=== PATIENT | female | born 1950 | race Caucasian/White ===

== ENCOUNTER 2023-01-28 11:45 | Outpatient (OUT) | payer MEDICARE, SELFPAY ==
[2023-01-28 12:18] LABS: Basophils Percent Auto 0.5 % (0.2-2.0); Eosinophils Absolute Auto 0.2 10^3/uL (0.0-0.7); Eosinophils Percent Auto 2.9 % (0.9-7.0); Estimated Average Glucose 114 mg/dL; Glycohemoglobin A1C 5.6 % (4.5-6.2); Hematocrit 44.3 % (36.0-48.0); Hemoglobin 14.3 g/dL (12.0-16.0); Immature Granulocytes Abs Auto 0.02 10^3/uL (0.00-0.03); Immature Granulocytes Pct Auto 0.3 % (0.0-0.5); Lymphocytes Absolute Auto 1.8 10^3/uL (1.2-3.8); Lymphocytes Percent Auto 31.9 % (20.5-60.0); Mean Corpuscular HGB Conc 32.3 g/dL (29.9-35.2); Mean Corpuscular Hemoglobin 29.8 pg (26.7-34.0); Mean Corpuscular Volume 92.3 fL (81.0-99.0); Monocytes Absolute Auto 0.5 10^3/uL (0.3-0.8); Monocytes Percent Auto 9.2 % (1.7-12.0); Neutrophils Absolute Auto 3.2 10^3/uL (1.4-6.5); Neutrophils Percent Auto 55.2 % (43.0-75.0); Platelet Count 208 10^3/uL (150-450); Red Cell Distribution Width 13.7 % (11.0-15.0); White Blood Count 5.8 10^3/uL (4.0-11.0)
[2023-01-28 12:41] LABS: Alanine Aminotransferase 76 U/L (14-59); Albumin Globulin Ratio 1.1; Albumin Level 4.1 g/dL (3.4-5.0); Alkaline Phosphatase 89 U/L (46-116); Anion Gap 12.9; Aspartate Amino Transferase 38 U/L (15-37); BUN Creatinine Ratio 21.4; Bilirubin Direct 0.1 mg/dL (0.0-0.2); Bilirubin Total 0.5 mg/dL (0.2-1.0); Carbon Dioxide 29.2 mmol/L (21.0-32.0); Chloride 103 mmol/L (98-107); Chol HDL Ratio 3.6; Cholesterol 210 mg/dL (<=200); Estimated GFR (African America >60 (>=60); Estimated GFR (Non-African Ame >60 (>=60); Free T3 2.58 pg/mL (2.18-3.98); Globulin 3.6 g/dL; Glucose 92 mg/dL (74-106); HDL Cholesterol 59 mg/dL (40-60); Potassium 4.1 mmol/L (3.5-5.1); Sodium 141 mmol/L (136-145); Thyroid Stimulating Hormone 2.484 uIU/mL (0.358-3.740); Total Protein 7.7 g/dL (6.4-8.2); Triglycerides 94 mg/dL (<=150); VLDL CHOLESTEROL 18.8 mg/dL
[2023-01-28 13:00] LABS: Free T4 0.96 ng/dL (0.76-1.46)
== END 2023-01-28 11:46 | disposition home or self-care (01) ==
PROVIDERS: PCP Family Medicine; Visit Provider Family Medicine
DX: Z79.899 Other long term (current) drug therapy (principal); E03.9 Hypothyroidism, unspecified; E78.5 Hyperlipidemia, unspecified
CPT/HCPCS: 36415; 80048; 80061; 80076; 83036; 84439; 84443; 84481; 85025

== ENCOUNTER 2023-11-06 12:20 | Outpatient (OUT) | payer MEDICARE, SELFPAY ==
--- NOTE | 2023-11-06 | MR_ITS ---
The [address] [address] Patient Name: RADHA FARNSWORTH MRN: [facility]:[id number] date: 1950 Sex: F Assigned Patient Location: LAB Current Patient Location: LAB Accession/Order Number: [id number] Exam Date: 11/06/2023 12:50 Report Date: 11/09/2023 11:10 At the request of: NON-STAFF PHYSICIAN Procedure: MR ankle RT wo/w con EXAM: MR ankle RT wo/w con HISTORY: Peroneal rupture right ankle COMPARISON: None. TECHNIQUE: Multiplanar multisequence MRI of the right ankle was performed with and without IV contrast. This included axial T2, axial T1 fat-sat, axial oblique PD fat-sat, sagittal T1 fat-sat, sagittal PD fat-sat, sagittal T1, coronal T1 fat-sat, coronal T2 imaging with postcontrast axial, coronal and sagittal T1 fat-sat imaging. FINDINGS: JOINTS: No talar dome osteochondral lesion is seen. Mild marginal spur at the anterior tibiotalar joint. Mild dorsal spur at the talonavicular joint. Minor marginal spur along the midfoot. As seen, the tarsometatarsal alignment appears preserved on this non-weightbearing study. BONES: No focal bone marrow edema is identified. No T1 fracture line is noted. LIGAMENTS: The ATFL is not well seen. No adjacent soft tissue edema. The calcaneofibular and posterior talofibular ligament appears intact. Mild distortion of the deep deltoid ligament compatible with chronic sprain. The anterior and posterior tibiofibular ligaments are intact. TENDONS: The flexor and extensor tendons appear intact. Mild fluid involving the flexor digitorum longus tendon sheath and extensor digitorum longus tendon at the lateral ankle. There is prominent tendinosis of the peroneus longus tendon particularly in the retromalleolar region. There is attenuation of the tendon fibers at the tip of the lateral malleolus, extending 1.8 cm in length, compatible with high-grade partial tear. Interstitial tear is suggested distally along the anterior margin of the lateral malleolus. Peroneus brevis tendon is intact. Mild tenosynovitis is seen. Achilles tendon is intact. Small insertional enthesophyte is noted. SINUS TARSI: Normal fat signal is seen sinus tarsi. PLANTAR FASCIA: Large plantar calcaneal spur is noted. No fascial tear is identified. TARSAL TUNNEL: No mass lesion in tarsal tunnel is identified. SOFT TISSUES: There is mild soft tissue swelling and edema along the ankle. MR/MR ankle RT wo/w con IMPRESSION: 1. High-grade partial tear of the peroneus longus tendon at the level of the tip of lateral malleolus which appears severely attenuated extending 1.8 cm in length. Associated tenosynovitis. Additional split tear suggested distally in the peroneus longus tendon at the level of the anterior process of the calcaneus. 2. No stress reaction or fracture identified. No talar dome OCD. 3. Pgoi-rd-cwfogwju mid/hindfoot osteoarthritis. 4. Chronic plantar fasciitis. 5. ATFL is not well seen which could be related to chronic high-grade partial or full-thickness tear. Remote sprain of the deep deltoid ligament. Electronically authenticated by: MATHEW CASH Date: 11/09/2023 11:10
[2023-11-06 12:47] LABS: Estimated GFR (African America >60 (>=60); Estimated GFR (Non-African Ame >60 (>=60)
== END 2023-11-06 12:21 | disposition home or self-care (01) ==
LOC: LAB 12:20
PROVIDERS: PCP Family Medicine
DX: M76.71 Peroneal tendinitis, right leg (principal); M77.51 Other enthesopathy of right foot and ankle; S86.311A Strain of muscle(s) and tendon(s) of peroneal muscle group at lower leg level, right leg, initial encounter; M72.2 Plantar fascial fibromatosis
CPT/HCPCS: 36415; 73723; 82565; A9575

== ENCOUNTER 2024-03-17 12:46 | Outpatient (OUT) | payer MEDICARE, SELFPAY ==
--- NOTE | 2024-03-17 12:51 | MM_ITS ---
Patient Name: RADHA FARNSWORTH MR#: [id number] : 1950 Exam Date: 03/17/2024 Ordering Doctor: DR Librado Cm . RADIOLOGY REPORT PROCEDURE: MM TOMOSYNTHESIS SCREENING BI COMPARISON: MG MAMM SCREEN 3D ARMANDO CAD, 07/01/2022. MG MAMM SCREEN 3D ARMANDO CAD, 09/26/2020. INDICATIONS: Screening for malignant neoplasm Calculator Name NCI Breast Cancer Risk Assessment Tool 5 Year Breast Cancer Risk 1.40% Lifetime Breast Cancer Risk 3.40% Personal Breast Cancer No Personal Ovarian Cancer No Treatments None Family Cancers Mother with pancreatic cancer at age 68; Brother with prostate cancer at age ~60. LOCATION: The [facility] BREAST COMPOSITION: There are scattered areas of fibroglandular density. FINDINGS: DIAGNOSTIC CATEGORY 1--NEGATIVE. NO CHANGE FROM COMPARISON ASSESSMENT. Scattered benign-appearing calcifications are present. RIGHT BREAST: No significant suspicious finding. LEFT BREAST: No significant suspicious finding. RECOMMENDATIONS: ROUTINE MAMMOGRAM AND CLINICAL EVALUATION IN 12 MONTHS. PLEASE NOTE: A NORMAL MAMMOGRAM DOES NOT EXCLUDE THE POSSIBILITY OF BREAST CANCER. A CLINICALLY SUSPICIOUS PALPABLE LUMP SHOULD BE BIOPSIED. Dictated by: Daryl Daigle MD on 03/17/2024 at 13:36 Approved by: Daryl Daigle MD on 03/17/2024 at 13:37
[2024-03-17 14:00] LABS: Basophils Percent Auto 0.5 % (0.2-2.0); Eosinophils Absolute Auto 0.2 10^3/uL (0.0-0.7); Eosinophils Percent Auto 2.9 % (0.9-7.0); Hematocrit 41.3 % (36.0-48.0); Hemoglobin 13.6 g/dL (12.0-16.0); Immature Granulocytes Abs Auto 0.03 10^3/uL (0.00-0.03); Immature Granulocytes Pct Auto 0.5 % (0.0-0.5); Lymphocytes Absolute Auto 1.8 10^3/uL (1.2-3.8); Lymphocytes Percent Auto 29.2 % (20.5-60.0); Mean Corpuscular HGB Conc 32.9 g/dL (29.9-35.2); Mean Corpuscular Hemoglobin 30.2 pg (26.7-34.0); Mean Corpuscular Volume 91.8 fL (81.0-99.0); Mean Platelet Volume 11.2 fL (9.5-13.5); Monocytes Absolute Auto 0.5 10^3/uL (0.3-0.8); Monocytes Percent Auto 8.8 % (1.7-12.0); Neutrophils Absolute Auto 3.6 10^3/uL (1.4-6.5); Neutrophils Percent Auto 58.1 % (43.0-75.0); Platelet Count 229 10^3/uL (150-450); Red Cell Distribution Width 13.8 % (11.0-15.0); White Blood Count 6.1 10^3/uL (4.0-11.0)
[2024-03-17 14:20] LABS: Free T4 0.98 ng/dL (0.76-1.46)
[2024-03-17 14:21] LABS: Alanine Aminotransferase 44 U/L (14-59); Albumin Globulin Ratio 1.1; Albumin Level 3.7 g/dL (3.4-5.0); Alkaline Phosphatase 94 U/L (46-116); Aspartate Amino Transferase 25 U/L (15-37); BUN Creatinine Ratio 17.6; Bilirubin Direct 0.1 mg/dL (0.0-0.2); Bilirubin Total 0.3 mg/dL (0.2-1.0); Calcium 9.7 mg/dL (8.5-10.1); Carbon Dioxide 30.2 mmol/L (21.0-32.0); Chloride 103 mmol/L (98-107); Chol HDL Ratio 3.9; Cholesterol 227 mg/dL (<=200); Estimated GFR (African America >60 (>=60 mL/min/1.73m^2); Estimated GFR (Non-African Ame 53 (>=60 mL/min/1.73m^2); Globulin 3.4 g/dL; Glucose 114 mg/dL (74-106); HDL Cholesterol 58 mg/dL (40-60); Potassium 4.2 mmol/L (3.5-5.1); Sodium 142 mmol/L (136-145); Thyroid Stimulating Hormone 2.513 uIU/mL (0.358-3.740); Total Protein 7.1 g/dL (6.4-8.2); Triglycerides 211 mg/dL (<=150); VLDL CHOLESTEROL 42.2 mg/dL
[2024-03-17 15:21] LABS: Estimated Average Glucose 105 mg/dL; Glycohemoglobin A1C 5.3 % (4.5-6.2)
== END 2024-03-17 12:47 | disposition home or self-care (01) ==
LOC: MAMMO 12:47
PROVIDERS: PCP Family Medicine; Visit Provider Family Medicine
DX: R00.2 Palpitations (principal); Z79.899 Other long term (current) drug therapy; E78.5 Hyperlipidemia, unspecified; E03.9 Hypothyroidism, unspecified; Z12.31 Encounter for screening mammogram for malignant neoplasm of breast; R73.03 Prediabetes; Z80.42 Family history of malignant neoplasm of prostate; Z80.8 Family history of malignant neoplasm of other organs or systems
CPT/HCPCS: 36415; 77063; 77067; 80048; 80061; 80076; 83036; 84439; 84443; 84481; 85025; 93242

== ENCOUNTER 2025-03-25 10:06 | Outpatient (OUT) | payer MEDICARE, SELFPAY ==
--- OUTSIDE RECORDS SUMMARY | 2025-03-25 10:10 | XMS_ITS | Clinical Summary ---
Author Organization [facility] Address [address] [place] [address] Care Team Providers Care Medical Lab Scientist Name Role Phone Librado Cm MD Primary Care Provider [phone] Librado Cm MD Unavailable Allergies Active AllergyReactionsCriticalityNoted AvhbRndftahvHxywfjbf95/02/2023 Medications MedicationSigDispense QuantityRefillsLast FilledStart DateEnd DateStatus aspirin 81 MG EC tablet Take 81 mg by mouth in the morning.Active baclofen (Lioresal) 20 MG tablet Take by mouth 3 (three) times a day.Active Calcium Carbonate (CALCIUM 500 PO) Take by mouth.Active clobetasol propionate (Clobetasol Propionate E) 0.05 % emollient cream Apply topically 2 (two) times a day.Active Magnesium 500 MG capsule Take by mouth.Active levothyroxine (Synthroid, Levoxyl) 75 MCG tablet Indications:Hypothyroidism, adultTAKE 1 TABLET DAILY 90 tablet ctive ALPRAZolam (Xanax) 0.25 MG tablet Indications:Generalized anxiety disorderTake 1 tablet (0.25 mg) by mouth 3 (three) times a day as needed for anxiety for up to 10 days 30 tablet 03/29/2024ctive celecoxib (CeleBREX) 200 MG capsule Indications:ArthritisTake 1 capsule (200 mg) by mouth in the morning and 1 capsule (200 mg) before bedtime. 180 capsule ctive calcium citrate (Calcitrate) 950 (200 Ca) MG tablet Take 950 mg by mouth DailyActive buPROPion XL (Wellbutrin XL) 300 MG 24 hr tablet Indications:Major depressive disorder, recurrent, moderate (HCC)Take 1 tablet (300 mg) by mouth in the morning. 30 tablet 507/14/651030/146Active Active Problems ProblemNoted DateDiagnosed DateMedicare annual wellness visit, subsequent 12/07/2024 Assessment & Plan (12/07/2024 12:20 PM EDT): Reviewed labs. Discussed proper diet and regular aerobic exercise. Need aerobic exercise 5-6 days aweek for 30 minutes at a time. Smaller portions and limit total calories. Cologuard normal September 2023. Tetanus every 10 years. Advised not to smoke. Former ppddzq8412/07/2024 Assessment & Plan (12/07/2024 12:20 PM EDT): Quit in 2015 but over 30 pack year smoking history. Check LDCT chest. Gzewimnjmbw67/16/2024Encounter for long-term current use of wmvjidvrfx92/08/2024 Heart peggtixrbmxm98/08/2024 Assessment & Plan (03/09/2024 10:45 AM EDT): Occasional pause noted but not symptomatic. Check Holter. Arthralgia of right hand09/02/20231380Uviuqujxpp31/02/2024hronic pain of both knees 09/02/2023isc disease, degenerative, /02/2024Generalized anxiety jcayjnpp96/02/2024 Assessment & Plan (09/07/2024 10:53 AM EDT): Symptoms worse and increase wellbutrin. Warned will take 2-3 weeks to notice improvement in symptoms. Use xanax PRN. Assessment & Plan (03/09/2024 10:45 AM EDT): Symptoms controlled with wellbutrin and continue. Use xanax PRN. Assessment & Plan (09/02/2023 11:03 AM EDT): Symptoms controlled with wellbutrin and continue. Use xanax PRN. Tlitzwmblujv49/02/2024Hypothyroidism, adult09/02/2023rimary cjjymxfw32/02/2024 Assessment & Plan (09/07/2024 10:53 AM EDT): Sleeping well and continue xanax PRN. Assessment & Plan (03/09/2024 10:45 AM EDT): Sleeping well and continue xanax PRN. Assessment & Plan (09/02/2023 11:04 AM EDT): Sleeping well and continue xanax PRN. Irritable bowel cwghxsy4809/02/2023Lumbosacral spondylosis with radiculopathy 09/02/2023rimary osteoarthritis of left hip09/02/2023rimary osteoarthritis of left knee09/02/2023Seborrheic dermatitis, atssomvtcgu47/02/2024Major depressive disorder, recurrent, exkvsdhn73/02/2024 Assessment & Plan (09/07/2024 10:53 AM EDT): Symptoms worse and increase wellbutrin. Warned will take 2-3 weeks to notice improvement in symptoms. Assessment & Plan (03/09/2024 10:45 AM EDT): Symptoms controlled with wellbutrin and continue. Assessment & Plan (09/02/2023 11:03 AM EDT): Symptoms controlled with wellbutrin and continue. Right foot pain09/02/2023 Assessment & Plan (03/09/2024 10:46 AM EDT): Podiatry found torn tendon and has since retired. If worsens will refer to new podiatry. Assessment & Plan (09/02/2023 11:04 AM EDT): Recent pain and start PT. Follow up with podiatry and if no improvement may need MRI. Chronic zggiyjpywieaac16/02/2024 Assessment & Plan (09/07/2024 10:51 AM EDT): Symptoms worse and treat with antibiotics and steroids. Use OTC PRN. Assessment & Plan (03/09/2024 10:44 AM EDT): Symptoms controlled with medication and continue. Assessment & Plan (09/02/2023 11:03 AM EDT): Symptoms controlled with medication and continue. Family History Medical HistoryRelationNameCommentsCOPDFatherCoronary artery diseaseFather HypertensionFathercerebrovascular diseaseFatherCancerMotherHypertensionMother Pancreatic cancerMotherRelationNameStatusCommentsFatherDeceasedMotherDeceased Social History Tobacco UseTypesPacks/DayYears UsedDateSmoking Tobacco: [id number] - 2016Smokeless Tobacco: Never Tobacco Cessation:Counseling Given: Not Answered PHQ-2AnswerDate RecordedPatient Health Questionnaire-2 Mbhcp641 CommentsUnknownSex and Gender InformationValueDate RecordedSex Assigned at Not on fileLegal MhbVqzgmi19/28/2023 3:53 PM EDTGender IdentityNot on fileSexual OrientationNot on file Last Filed Vital Signs Vital SignReadingTime TakenCommentsBlood Sqvodyti886/6207 10:34 AM EDT Uzhqj745812/07/2024 10:34 AM KIUBekwwwfzwhl81.2 ??C (97.1 ??F)12/07/2024 10:34 AM EDTRespiratory Zeov774212/07/2024 10:34 AM EDTOxygen Cvxnbycajo68%12/07/2024 10:34 AM EDTInhaled Oxygen Concentration--Bkgpav72.4 kg (206 lb)12/07/2024 10:34 AM QTQFphyec181 cm (5' 8.5 )12/07/2024 10:34 AM EDTBody Mass Index30.8712/07/2024 10:34 AM EDT Plan of Treatment Health MaintenanceDue DateLast DoneCommentsCT Httfvwbnroer1950Colonoscopy 1950FIT1950FOBT1Lung Cancer Screening Shared Decision Rzggfm92 1950 7941Ggtftiodpmmgz1950neumococcal Vaccine: 65+ Years (1 of 1 - PCV)2001Influenza Vaccine (#1)511/07/20216794Wbmzsyqum30/16/2025 03/17/2024, 11/21/2014Medicare Annual Wellness (AWV)6012/07/2024 Colorectal Cancer Kuumwotfj25/10/2027FIT-DNA Goals GoalPatient Goal TypeAssociated ProblemsRecent ProgressPatient-Stated?Author Help patient manage antidepressant medication Care PlanPatient on antidepressant monitoring Moira Mendez MA Baseline PHQ-9 Care PlanBaseline PHQ-9Moira Jensen MA Procedures Procedure NamePriorityDate/TimeAssociated DiagnosisCommentsMM TOMOSYNTHESIS SCREENING BI03/17/2024 1:37 PM EDT LAB COLOGUARD?? COLON CANCER VRMCIRXpihmpe63/10/2024 9:05 AM EDT Colon cancer screening from Last 3 Months or Most Recently Relevant to Health Maintenance Results * MM TOMOSYNTHESIS SCREENING BI (03/17/2024 1:37 PM EDT)Anatomical Region LateralityModalityOtherSpecimen (Source)Anatomical Location / Laterality Collection Method / VolumeCollection TimeReceived Time03/17/2024 1:37 PM EDT Narrative 03/17/2024 1:39 PM EDT The [facility] ?[address] ? [place] [address] ? Mammography Report ? Signed ? Patient: SHEPERD,RADHA J ?MR#: [id number] ?? : 1950 ?Acct:[id number] ?? Age/Sex: 74 / F ?ADM Date: 10/16/24 ?? Loc: MAMMO ? Attending Dr: Librado Cm M.D. ? Ordering Physician: Librado Cm M.D. ?Results: ? Date of Service: 10/16/24 ?Follow Up: ? Procedure(s): MM tomosynthesis screening BI ?? Accession Number(s): [id number] ? cc: Librado Cm M.D. ? Patient Name: ? RADHA JERRY ? MR#: [id number] ? : 1950 ? Exam Date: 03/17/2024 ?? Ordering Doctor: DR Librado Cm . ? RADIOLOGY REPORT ? PROCEDURE: ? MM TOMOSYNTHESIS SCREENING BI ? COMPARISON: ? MG MAMM SCREEN 3D ARMANDO CAD, 07/01/2022. ??MG MAMM SCREEN 3D ARMANDO ?? CAD, 09/26/2020. ? INDICATIONS: ? Screening for malignant neoplasm ? Calculator Name ? NCI Breast Cancer Risk Assessment Tool ?? 5 Year Breast Cancer Risk ? 1.40% ?? Lifetime Breast Cancer Risk ? 3.40% ?? Personal Breast Cancer ?No ?? Personal Ovarian Cancer ? No ?? Treatments ? None ?? Family Cancers ? Mother with pancreatic cancer at age 68; Brother with ?? prostate cancer at age ??60. ? LOCATION: ? The [facility] ? BREAST COMPOSITION: ? There are scattered areas of fibroglandular density. ? FINDINGS: ? DIAGNOSTIC CATEGORY 1--NEGATIVE. NO CHANGE FROM COMPARISON ASSESSMENT. ? Scattered benign-appearing calcifications are present. ? RIGHT BREAST: ??No significant suspicious finding. ? LEFT BREAST: ??No significant suspicious finding. ? RECOMMENDATIONS: ? ROUTINE MAMMOGRAM AND CLINICAL EVALUATION IN 12 MONTHS. ? PLEASE NOTE: ??A NORMAL MAMMOGRAM DOES NOT EXCLUDE THE POSSIBILITY OF BREAST ?? CANCER. ??A CLINICALLY SUSPICIOUS PALPABLE LUMP SHOULD BE BIOPSIED. ? Dictated by: Daryl Daigle MD on 03/17/2024 at 13:36 ? Approved by: Daryl Daigle MD on 03/17/2024 at 13:37 ? Dictated By: ?Daryl Daigle M.D. ? Signed By: ?03/17/24 1339 ? DD/ 1337 ? TD/TT: ? Meat Stocker: Procedure Note Radiology, Radiologist, MD - 03/17/2024 [place] [address] Mammography Report Signed Patient: RADHA JERRY JMR#: [id number] : 1950cct:[id number] Age/Sex: 74 / FADM Date: 03/17/24 Loc: MAMMO Attending Dr: Librado Cm M.D. Ordering Physician: Librado Cm M.D.Results: Date of Service: 03/17/24Follow Up: Procedure(s): MM tomosynthesis screening BI Accession Number(s): [id number] cc: Librado Cm M.D. Patient Name: RADHA JERRY MR#: [id number] : 1950 Exam Date: 03/17/2024 Ordering Doctor: DR Librado Cm . RADIOLOGY REPORT PROCEDURE: MM TOMOSYNTHESIS SCREENING BI COMPARISON: MG MAMM SCREEN 3D ARMANDO CAD, 07/01/2022. MG MAMM SCREEN 3DBIL CAD, 09/26/2020. INDICATIONS: Screening for malignant neoplasm Calculator Name NCI Breast Cancer Risk Assessment Tool 5 Year Breast Cancer Risk 1.40% Lifetime Breast Cancer Risk 3.40% Personal Breast Cancer No Personal Ovarian Cancer No Treatments None Family Cancers Mother with pancreatic cancer at age 68; Brother with prostate cancer at age 60. LOCATION: The [facility] BREAST COMPOSITION: There are scattered areas of fibroglandulardensity. FINDINGS: DIAGNOSTIC CATEGORY 1--NEGATIVE. NO CHANGE FROM COMPARISON ASSESSMENT. Scattered benign-appearing calcifications are present. RIGHT BREAST: No significant suspicious finding. LEFT BREAST: No significant suspicious finding. RECOMMENDATIONS: ROUTINE MAMMOGRAM AND CLINICAL EVALUATION IN 12 MONTHS. PLEASE NOTE: A NORMAL MAMMOGRAM DOES NOT EXCLUDE THE POSSIBILITY OFBREAST CANCER. A CLINICALLY SUSPICIOUS PALPABLE LUMP SHOULD BE BIOPSIED. Dictated by: Daryl Daigle MD on 03/17/2024 at 13:36 Approved by: Daryl Daigle MD on 03/17/2024 at 13:37 Dictated By: Daryl Daigle M.D. Signed By:03/17/24 1339 DD/ 36 TD/TT: Meat Stocker: Authorizing ProviderResult TypeResult StatusMarc Naderer MDCLINISYNC IMAGING Final Result * Cologuard?? colon cancer screening (09/10/2023 9:05 AM EDT)ComponentValueRef RangeTest MethodAnalysis TimePerformed AtPathologist SignatureNONINV COLON CA DNA+OCC BLD SCRN STL-TPCRxgppkhtKyvkcqqp69/18/2024 5:56 AM EDTEXCFX BATTERY (CLIA #:[id number])Comment: NEGATIVE TEST RESULT. A negative Cologuard result indicates a low likelihood that a colorectal cancer (CRC) or advanced adenoma (adenomatous polyps with more advanced pre-malignant features) ??is present. The chance that a person with a negative Cologuard test has a colorectal cancer is less than 1in 1500 (negative predictive value >99.9%) or has an advanced adenoma is less than 5.3% (negative predictive value 94.7%). These data are based on a prospective cross-sectional study of 10,000individuals at average risk for colorectal cancer who were screened with both Cologuard and colonoscopy. (Elaina Love et al, N Engl J Med 2014;370(14):8585-4128) The normal value (reference range) for this assay is negative. COLOGUARD RE-SCREENING RECOMMENDATION: Periodic colorectal cancer screening is an important part ofpreventive healthcare for asymptomatic individuals at average risk for colorectal cancer. ??Following a negative Cologuard result, the [place] Cancer Society and U.S. Multi-Society Task Force screening guidelines recommend a Cologuard re-screening interval of 3 years. References: [place] [employer] Guideline for Colorectal Cancer Screening: https://www.cancer.or g/cancer/ebckf-ozcuny-kpktyq/nrimcwjpt-cjujjpjso-xgodavw/acs-recommendations.htm sp MARROQUIN, Jacqueline SMITH, Kina LARA, Colorectal Cancer Screening: Recommendations for Physicians and Patients from the U.S. Multi-Society Task Force on Colorectal Cancer Screening , Am J Gastroenterology 2017; 112:6226-6771. TEST DESCRIPTION: Composite algorithmic analysis of stool DNA-biomarkers with hemoglobin immunoassay. ?? Quantitative values of individual biomarkers are not reportable and are not associated with individual biomarker result reference ranges. Cologuard is intended for colorectal cancer screening ofadults of either sex, 45 years or older, who are at average-risk for colorectal cancer (CRC). Cologuard has been approved for use by the U.S. FDA. The performance of Cologuard was established in a cross sectional study of average-risk adults aged 50-84. Cologuard performance in patients ages 45 to 49 years was estimated by sub-group analysis of near-age groups. Colonoscopies performed for a positive result may find as the most clinically significant lesion: colorectal cancer [4.0%], advanced adenoma (including sessile serrated polyps greater than or equal to 1cm diameter) [20%] or non- advanced adenoma [31%]; or no colorectal neoplasia [45%]. These estimates are derived from a prospective cross-sectional screening study of 10,000 individuals at average risk for colorectal cancer who were screened with both Cologuard and colonoscopy. (Elaina Dickson. et al, N Engl J Med 2014;370(14):2409-1885.) Cologuard may produce a false negative or false positive result (no colorectal cancer or precancerous polyp present at colonoscopy follow up). A negative Cologuard test result does not guarantee the absence of CRC or advanced adenoma (pre-cancer). The current Cologuard screening interval is every 3 years. ([place] [employer] Society and U.S. Multi-Society Task Force). Cologuard performance data in a 10,000 patient pivotal study using colonoscopy as the reference method can be accessed at the following location: www.The [place] Times/results. Additional description of the Cologuard test process, warnings and precautions can be found at [email or web address] [email or web address]. Specimen (Source)Anatomical Location / LateralityCollection Method / Volume Collection TimeReceived TimeStool specimen (specimen)09/10/2023 9:05 AM EDT 09/11/2023 12:06 PM EDT Narrative Authorizing ProviderResult TypeResult StatusMarc Toi [facility] ORDERABLESFinal ResultPerforming OrganizationAddressCity/State/ZIP CodePhone Number .[facility] (CLIA #:[id number]) [address] [address], [facility] (CLIA #:[id number]) [address] [address] from Last 3 Months or Most Recently Relevant to Health Maintenance Additional Health Concerns Active ProblemsNoted DateDiagnosed DatePatient on antidepressant monitoring plan 5Baseline PHQ-9007/05/2024 Insurance * Guarantor: Radha Jerry TypeRelation to PatientDate of BirthPhone Billing AddressPersonal/RfsmcwFnby1950 [facility] [place] [address] Care Teams Team MemberRelationshipSpecialtyStart DateEnd Date Librado Cm MD PCP - GeneralFamily Medicine09/02/23 Librado Cm MD [address] [place] [address] PCP - Medical [facility]02/01/1612
--- OUTSIDE RECORDS SUMMARY | 2025-03-25 10:10 | XMS_ITS | Clinical Summary ---
Author Organization [facility] Address [address], [address] [place] [address] Care Team Providers Care Automotive Painter Helper Name Role Phone Librado Cm MD Primary Care Provider + Allergies Active AllergyReactionsCriticalityNoted UukrQkqumrzsSpinmghuCquloIxo69/07/2020 Bee IjfepWtdod63/14/8498WallcqofovhoqXtbjvrw64/14/2023 Patient states she cannot wash it off and it starts itching like crazy. Medications MedicationSigDispense QuantityRefillsLast FilledStart DateEnd DateStatus clobetasol (TEMOVATE) 0.05 % cream Apply topically daily as zzlzfn8302/10/2020Active SYNTHROID 75 MCG tablet Take 75 mcg by mouth Daily01/31/2020Active ALPRAZolam (XANAX) 0.5 MG tablet Take 0.5 mg by mouth nightly as needed for Sleep.Active baclofen (LIORESAL) 20 MG tablet Take 20 mg by mouth as neededActive magnesium oxide (MAG-OX) 400 MG tablet Take 400 mg by mouth dailyActive Multiple Vitamins-Minerals (THERAPEUTIC MULTIVITAMIN-MINERALS) tablet Take 1 tablet by mouth dailyActive ibuprofen (ADVIL;MOTRIN) 200 MG tablet Take 200 mg by mouth every 6 hours as needed for PainActive docusate sodium (COLACE) 100 MG capsule Take 1 capsule by mouth 2 times daily as needed for Constipation 60 capsule 04/05/2020Active Additional Information Patient not taking.Reported on 08/13/2022 aspirin EC 81 MG EC tablet Take 1 tablet by mouth 2 times daily 84 tablet 04/05/2020Active Additional Information Patient taking differently:81 mg OralDAILY, Reported on 07/24/2022 celecoxib (CELEBREX) 200 MG capsule Take 200 mg by mouth 2 times daily05/23/2022ctive Active Problems ProblemNoted DateDiagnosed DateDegenerative tear of left medial meniscus 08/13/2022egenerative tear of lateral meniscus, left08/13/2022lica syndrome, left knee08/13/2022Status post total hip replacement, left04/04/2020 Family History Medical HistoryRelationNameCommentsHigh Blood PressureFatherOtherFatherCancer MotherHigh Blood PressureMotherRelationNameStatusCommentsFatherDeceasedMother Social History Tobacco UseTypesPacks/DayYears UsedDateSmoking Tobacco: FormerCigarettes0.510 03/08/2005 - 03/08/2015Smokeless Tobacco: Never Tobacco Cessation:Counseling Given: Not Answered Alcohol UseStandard Drinks/WeekCommentsYes7 (1 standard drink = 0.6 oz pure alcohol)DailyCommentsNoSex and Gender InformationValueDate RecordedSex Assigned at BirthNot on fileLegal CpnTsieey66/10/2013 10:43 AM ESTGender IdentityNot on fileSexual OrientationNot on file Last Filed Vital Signs Vital SignReadingTime TakenCommentsBlood Dzkbvjir650/69008/13/2022 6:00 PM EDT Dbrsk515608/13/2022 6:00 PM YQYZdeotdbopok82.4 ??C (97.5 ??F)08/13/2022 6:00 PM EDTRespiratory Mlcd685808/28/2022 11:03 AM EDTOxygen Ptyfvofrvn68%08/13/2022 6:00 PM EDTInhaled Oxygen Concentration--Amzmzy11.9 kg (218 lb)08/28/2022 11:03 AM TSWGdinff805.7 cm (5' 8 )08/28/2022 11:03 AM EDTBody Mass Index33.15008/28/2022 11:03 AM EDT Plan of Treatment Health MaintenanceDue DateLast DoneCommentsDepression Ygefur2502/24/1963Hepatitis C apaxyg7302/24/1969DTaP/Tdap/Td vaccine (1 - Tdap)1970Breast cancer screen 02/24/19911174Dmuaai79/25/6258Jucuookimfj29/25/1996Colorectal Cancer Screen 02/25/1996FIT/FOBT: Average risk02/25/1996Fecal-DNA (Cologuard): Average risk 02/25/1996Sigmoidoscopy/CT nuzbwbqlvmsx55/25/1996Pneumococcal 50+ years Vaccine (1 of 1 - PCV)2001Shingles vaccine (1 of 2)2001DEXA (modify frequency per FRAX score)2006nnual Wellness Visit (Medicare Advantage) 06/02/2024Flu vaccine (#1)/2COVID-19 Vaccine ( - season)/07/2021, 01/08/2022, 03/03/2021, Additional history exists Respiratory Syncytial Virus (RSV) or age 60 yrs+ (1 - 1-dose 75+ series)2026Diabetes ivqunyPukngkrerwpq09/22/2020Hepatitis A vaccineAged OutNo longer eligible based on patient's age to complete this topicHepatitis B vaccineAged OutNo longer eligible based on patient's age to complete this topic Hib vaccineAged OutNo longer eligible based on patient's age to complete this topicMeningococcal (ACWY) vaccineAged OutNo longer eligible based on patient's age to complete this topicMeningococcal B vaccineAged OutNo longer eligible based on patient's age to complete this topicPolio vaccineAged OutNo longer eligible based on patient's age to complete this topic Medical Devices ImplantedTypeAreaManufacturerDevice IdentifierShelf Expiration DateModel / Serial / LotShell Acet Od56mm Lnr Dmh Dbl Mobility Mpact Implanted:Qty: 1 [facility] HipMEDACTA [facility]-[id number] / / [id number] Acet Sz Dmh Od56mm Id28mm [place] Dbl Mobility Implanted:Qty: 1 on 04/04/2020 [facility]: HipMEDACTA [place]-[id number] / / [id number] Fem Sz 8 Lat Hip Mectagrip Cementless Flat Dbl Tapr Implanted:Qty: 1 on 04/04/2020 [facility] HipMEDACTA [facility]-[id number] / / [id number] Fem M Xko50cz Hip Co Chrom Amistem Implanted:Qty: 1 on [facility]/04/2020 [facility] HipMEDACTA [facility]-[id number] / / [id number] Tot Hip Capped Std Kaushal Stem Implanted:Qty: 1 on 04/04/2020 [facility] HipMEDACTA [facility]-[id number] / / Procedures Procedure NamePriorityDate/TimeAssociated DiagnosisCommentsHEMOGLOBIN W1BWbvbwch 03/23/2020 4:34 PM EDT Abnormal finding of blood chemistry, unspecified Arthritis of left hip from Last 3 Months or Most Recently Relevant to Health Maintenance Results * Hemoglobin A1C (03/23/2020 4:34 PM EDT)ComponentValueRef RangeTest Method Analysis TimePerformed AtPathologist SignatureHemoglobin A1C5.44.0 - 6.0 % 03/23/2020 4:34 PM EDTMERCY LABORATORIESEstimated Avg Eymwgjy902xt/dL 03/23/2020 4:34 PM EDTMERCY LABORATORIESComment: The ADA and AACC recommend providing the estimated average glucose result to permit better patient understanding of their HBA1c result. Specimen (Source)Anatomical Location / LateralityCollection Method / Volume Collection TimeReceived TimeBLOOD SPECIMEN / Hglqttz7203/23/2020 4:34 PM EDT 03/23/2020 4:46 PM EDT Narrative Authorizing ProviderResult TypeResult StatusDrew Pat DOCHEMISTRY ORDERABLESFinal ResultPerforming OrganizationAddressCity/State/ZIP CodePhone Number [facility] [address] [id number], [facility] [phone] from Last 3 Months or Most Recently Relevant to Health Maintenance Insurance Advance Directives TypeDate RecordedPatient RepresentativeExplanationACP-Do Not Resuscitate 08/14/2022 12:57 PMACP-Advance Zpmgosoiu17/3/2020 10:35 AM * Full Code (Latest Code Status on File) Date ActivatedDate SweptqhklmjDsondgfu07/3/2020 9:14 PM04/05/2020 5:57 PM Care Teams Team MemberRelationshipSpecialtyStart DateEnd Date Librado Cm MD [address] [place] [address] PCP - GeneralFamily Xsdfbnep56/7/20
--- OUTSIDE RECORDS SUMMARY | 2025-03-25 10:10 | XMS_ITS | Patient Health Record ---
Author Organization [facility] [place] Address [address] [place] [address] Support Name Relationship Address Phone Nikko Emergency Contact Unknown Nikko Jerry Guarantor Unknown Unavailable Reason For Referral No Information Plan Of Treatment No Information Insurance Providers Payer Name Payer Address Payer Phone Subscriber Number Group Number Insured Name Patient Relationship to Insured Coverage Start Date Coverage End Date SELF PAY ON PATIENT DEMOGRAPHICS Jose Luis Jerry - patient is the oqyiyej2309/29/2007
--- OUTSIDE RECORDS SUMMARY | 2025-03-25 10:10 | XMS_ITS | Clinical Summary ---
Author Organization [facility] Address [id number] [place] [address] Care Team Providers Care Outside Cutter Hand Name Role Phone Unavailable Primary Care Provider Unavailabl e Social History Tobacco UseTypesPacks/DayYears UsedDateSmoking Tobacco: Never AssessedChildcare AnswerDate KglsbcbvMkifncaxmQngbzmf70/12/2019EmploymentAnswerDate Recorded FnffvmhejkCuulgyp90/12/2019CommentsUnknownSex and Gender Information ValueDate RecordedSex Assigned at BirthNot on fileLegal JwqWufaeb34/06/2015 11:58 AM EDTGender IdentityNot on fileSexual OrientationNot on file Plan of Treatment Not on file Medical Devices Not on file
--- OUTSIDE RECORDS SUMMARY | 2025-03-25 10:11 | XMS_ITS | CCD ---
Author Organization [facility] Care Team Providers Care Safemaker Name Role Phone Librado Solorzano Primary Care Provider [phone] LIBRADO SOLORZANO Primary Care Unavailabl e HOAGN, TIERA Referring Unavailable MD Lauro Brito Attending Provider [phone] Lauro Brito Attending Unavailable Lauro Brito Admitting Unavailable Maryererosendo, Librado Primary Care Unavailable RASHAD, LIBRADO LEE Primary Care Unavailabl e Rashad ESTRADA, Librado Lee Primary Care Provider CRYSTAL MCADAMS Attending Unavailab ebony MCADAMS, CRYSTAL ELDER Admitting Unavailab le NADERER, LIBRADO LEE Primary Care Unavailabl e NADERER, LIBRADO LEE Primary Care Unavailabl e CRYSTAL MCADAMS Referring Unavailab le NADERER, LIBRADO LEE Primary Care Unavailabl e CRYSTAL MCADAMS Referring Unavailab le NADERER, DR LIBRDAO Ward Primary Care Unavailable NADERER, DR LIBRADO Ward Consulting Unavailable NADERER, DR LIBRADO Ward Attending Unavailable NADERER, DR LIBRADO Ward Admitting Unavailable NADERER, DR LIBRADO Ward Primary Care Unavailable NADERER, DR LIBRADO Ward Attending Unavailable NADERER, DR LIBRADO Ward Admitting Unavailable ZIEBER, DR DENNISE Robbins Consulting Unavailable NADERER, DR LIBRADO Ward Consulting Unavailable AICHHOLZ, BACTERIOLOGY TEACHER EUSEBIO Admitting Unavailable AICHHOLZ, BACTERIOLOGY TEACHER EUSEBIO Consulting Unavailable AICHHOLZ, BACTERIOLOGY TEACHER EUSEBIO Attending Unavailable NADERERosendo, DR LIBRADO Ward Primary Care Unavailable ZIEBER, DR DENNISE Robbins Consulting Unavailable AICHHOLZ, BACTERIOLOGY TEACHER EUSEBIO Admitting Unavailable AICHHOLZ, BACTERIOLOGY TEACHER EUSEBIO Attending Unavailable NADERER, DR LIBRADO Ward Primary Care Unavailable MISC, DR PAREKH Admitting Unavailable MISC, DR PAREKH Attending Unavailable NADERER, DR LIBRADO Ward Primary Care Unavailable AICHHOLZ, BACTERIOLOGY TEACHER EUSEBIO Admitting Unavailable AICHHOLZ, BACTERIOLOGY TEACHER EUSEBIO Consulting Unavailable NAS MANN Attending Unavailable DR LIBRADO SOLORZANO Primary Care Unavailable DR DENNISE BARLOW Consulting Unavailable Librado Solorzano MD Primary Care Provider Librado Solorzano MD Unavailable LIBRADO SOLORZANO Attending Unavailable ILBRADO SOLORZANO Attending Unavailable LIBRADO SOLORZANO Attending Unavailable Librado Solorzano MD Primary Care Provider Librado Solorzano MD Attending Provider [phone] Allergies Allergy ClassificationReported Allergen(s)Allergy TypeDate of OnsetReaction(s) Facility (18 sources)NaproxenDrug Xfcxxkj21-39-4508BzaqwFpfvt Health- [place], [place] (1 source)bee venomPropensity to adverse reactions to itpa08-42-6604ZbebkTZWWell[facility] ([facility] source)ChlorhexidineDrug Qqzftsu58-77-2108AkjgpqaUZOCJW Medical Center Work Phone: Medications Current Medications MedicationDrug Class(es)DatesSig (Normalized)Sig (Original)acetaminophen 500 mg oral tablet (2 sources)Start: 04-04-2020 End: 74-56-8251smwekdhanuwql (TYLENOL) tablet 1,000 mgacetaminophen 325 mg / oxyCODONE hydrochloride 5 mg oral tablet (2 sources)Opioid AgonistStart: 08-13-2022 End: 07-29-2931xvgXLBDIB-acetaminophen (PERCOCET) 5-325 MG per tablet Indications: Post-op pain Take 1 tablet by mouth every 6 hours as needed for Pain for up to 7 days. Intended supply: 7 days. Take lowest dose possible to manage pain Max Daily Amount: 4 tablets 28 tablet 0 08/13/2022 08/20/2022 Active Start: 04-05-2020 End: 25-98-2995pbek 1 tablet by mouth every four hours as needed for pain, then take 1 tablet by mouth as needed for painoxyCODONE-acetaminophen (PERCOCET) 5- 325 MG per tablet Indications: Status post total hip replacement, left , Post- operative pain Take 1 tablet by mouth every 4 hours as needed for Pain for up to 7 days. Intended supply: 7 days. Take lowest dose possible to manage pain 42 tablet 0 04/05/2020 04/12/2020 ActiveALPRAZolam 0.25 mg oral tablet (20 sources)BenzodiazepineStart: 80-04-7007kqnf 1 tablet by mouth three times daily as neededAlprazolam 0.25 mg tablet Active 0.25 MG PO Three times daily as needed March 09, 2025 12:00am Complies with drug therapyStart: 03-25-2024 End: 82-48-8070iacl 1 tablet by mouth three times daily as needed for anxiety ALPRAZolam (Xanax) 0.25 MG tablet Indications: Generalized anxiety disorder Take 1 tablet (0.25 mg)by mouth 3 (three) times a day as needed for anxiety for up to 10 days 30 tablet 03/29/2024 ActiveStart: 03-09-2024 End: 11-41-2151jzrw 1 tablet by mouth three times daily as needed for anxiety ALPRAZolam (Xanax) 0.5 MG tablet Indications: Generalized anxiety disorder (CMS/HCC) Take 1 tablet (0.5 mg) by mouth 3 (three) times a day as needed for anxiety for up to 10 days 30 tablet ActiveStart: 04-04-2020 End: 04-33-8726xfjw 0.5 mg by mouth once daily as needed for sleep0.5 mg, Oral, NIGHTLY PRN, Sleep, Starting Fri04/04/20 at 2113ascorbic acid 60 mg / beta carotene 5000 unt / copper sulfate 40 mg / dl-alpha tocopheryl acetate 30 unt / sodium selenite 0.04 mg / zinc oxide 40 mg oral tablet (4 sources)Vitamin Ctake 1 tablet by mouth once dailyMultiple Vitamins-Minerals (THERAPEUTIC MULTIVITAMIN-MINERALS) tablet Take 1 tablet by mouth daily 0 Active aspirin 81 mg oral tablet (19 sources)Platelet Aggregation Inhibitor, Nonsteroidal Anti-inflammatory Drug Start: 11-80-1268qwgr 1 tablet by mouth once dailyAspirin 81 mg tablet Active 81 MG PO Daily March 09, 2025 12:00am Complies with drug therapyStart: 04-05-2020 End: 83-71-7363rnas 1 tablet by mouth twice dailyaspirin EC 81 MG EC tablet Take 1 tablet by mouth 2 times daily 84 tablet 0 04/05/2020 Active End: 63-34-1595trbr 1 tablet by mouth once dailyaspirin 81 MG EC tablet Take 81 mg by mouth daily 0 04/05/2020 Discontinued (Stop Taking at Discharge)baclofen 20 mg oral tablet (18 sources)gamma-Aminobutyric Acid-ergic Agonistbaclofen (Lioresal) 20 MG tablet Take by mouth 3 (three) times a day. Activebisacodyl 5 mg delayed release oral tablet (1 source)Stimulant LaxativeStart: 29-48-0345wpbk 5 mg by mouth once daily as needed for constipation5 mg, Oral, DAILY PRN, Constipation, Starting 04/04/20 at 2113 First line therapy for constipation. Post-op24 hr buPROPion hydrochloride 150 mg extended release oral tablet (15 sources)AminoketoneStart: 63-54-5665ftbl 1 tablet by mouth once daily in the morningBupropion Hcl (Wellbutrin Xl) 150 mg tablet extended release 24 hr Active 150 MG PO Every morning March 10, 2025 12:00am Complies with drug therapy Start: 25-34-5755echh 1 tablet by mouth once daily in the morningBupropion Hcl 300 mg tablet extended release 24 hr Active 300 MG PO Every morning March 092:00am Complies with drug therapyStart: 24-69-8532sytb 1 tablet by mouth every twenty-four hours in the morningbuPROPion XL (Wellbutrin XL) 300 MG 24 hr tablet Indications: Major depressive disorder, recurrent,moderate (HCC) Take 1 tablet (300 mg) by mouth in the morning. 90 tablet 3 09/07/2024 ActiveStart: 07-05-2024 End: 58-65-9055bfaz 1 tablet by mouth every twenty-four hours in the morning buPROPion XL (Wellbutrin XL) 150 MG 24 hr tablet Indications: Anxiety Take 1 tablet (150 mg) by mouth in the morning. 90 tablet 3 07/05/2024 09/07/2024 Discontinued (Reorder)Start: 19-36-3867eplp 1 tablet by mouth every twenty-four hours in the morningbuPROPion XL (Wellbutrin XL) 150 MG 24 hr tablet Indications: Anxiety Take 1 tablet (150 mg) by mouth in the morning. 90 tablet 3 09/15/2023 Activecalcium carbonate 1250 mg oral tablet (12 sources)Start: 40-05-6333zlre 1 tablet by mouth once dailyCalcium Carbonate 500 mg calcium (1,250 mg) tablet Active 500 MG PO Daily March 09, 2025 12:00amComplies with drug therapyCalcium Carbonate (CALCIUM 500 PO) Take by mouth. Activecalcium chloride 0.0014 meq/ml / potassium chloride 0.004 meq/ml / sodium chloride 0.103 meq/ml / sodium lactate 0.028 meq/ml injectable solution (2 sources)Start: 66-63-5305qtlpbyvs ringers IV soln infusionStart: 04-04-2020 lactated ringers infusioncalcium citrate 950 mg oral tablet (2 sources)take 1 tablet by mouth once dailycalcium citrate (Calcitrate) 950 (200 Ca) MG tablet Take 950 mg by mouth Daily Activecefdinir 300 mg oral capsule (2 sources)Cephalosporin AntibacterialStart: 09-07-2024 End: 33-28-5729qdzc 1 capsule by mouth in the morningcefdinir (Omnicef) 300 MG capsule Indications: Chronic rhinosinusitis Take 1 capsule (300 mg) by mouth in the morning and 1 capsule (300 mg) before bedtime. Do all this for 10 days. 20 capsule 09/07/2024 09/17/2024 Activecelecoxib 200 mg oral capsule (14 sources)Nonsteroidal Anti-inflammatory DrugStart: 07-05-2024 End: 79-05-8899qqaj 1 capsule by mouth twice dailyCelecoxib 200 mg capsule Active 200 MG PO Twice daily March 09, 2025 12:00am Complies with drug t herapyStart: 06-30-2023 End: 73-68-3380xhjm 1 capsule by mouth in the morningcelecoxib (CeleBREX) 200 MG capsule Indications: Arthritis Take 1 capsule (200 mg) by mouth in the morning and 1 capsule (200 mg) before bedtime. 60 capsule 11 06/30/2023 06/29/2024 ActiveStart: 03-85-5241kxwo 1 capsule by mouth twice dailycelecoxib (CELEBREX) 200 MG capsule Take 200 mg by mouth 2 times daily 0 05/23/2022 Activeclobetasol propionate 0.5 mg/ml topical cream (19 sources)CorticosteroidStart: 13-94-8772Prhyujfyeu 0.05 % cream Active 1 APPLIC TOPICAL Twice daily March 09, 2025 12:00am Complies withdrug therapy Start: 05-27-5290cmisqdyejn (TEMOVATE) 0.05 % cream Apply topically daily as needed 0 02/10/2020 Activeclobetasol propionate (Clobetasol Propionate E) 0.05 % emollient cream Apply topically 2 (two) times a day. Activedocusate sodium 100 mg oral capsule (4 sources)Start: 00-56-0225yaxg 1 capsule by mouth twice daily as needed for constipationdocusate sodium (COLACE) 100 MG capsule Take 1 capsule by mouth 2 times daily as needed for Constipation 60 capsule 0 04/05/2020 Activedocusate sodium 50 mg / sennosides, prison 8.6 mg oral tablet (1 source)Start: 97-95-7477sucz 1 tablet by mouth twice daily1 tablet, Oral, 2 TIMES DAILY, First dose on Fri04/04/20 at 2130, Post-op2 ml fentaNYL 0.05 mg/ml injection (3 sources)Opioid AgonistStart: 34-21-2312wafcuTBH (SUBLIMAZE) injection 25 mcg Start: 49-74-0507apfkfXFD (SUBLIMAZE) injection 25 mcgStart: 04-04-2020 End: 06-60-7849knvetENQ (SUBLIMAZE) injection 50 mcggabapentin 600 mg oral tablet (2 sources)Anti-epileptic AgentStart: 43-43-5304iycegvvjnb (NEURONTIN) tablet 300 mgStart: 04-04-2020 End: 33-86-7502zlwwavovqo (NEURONTIN) tablet 800 mg0.5 ml HYDROmorphone hydrochloride 1 mg/ml prefilled syringe (1 source)Opioid AgonistStart: 15-05-3823LBXPZxdkswguq HCl PF (DILAUDID) injection 0.5 mgibuprofen 200 mg oral tablet (7 sources)Nonsteroidal Anti-inflammatory Drugtake 1 tablet by mouth every six hours as needed for painibuprofen (ADVIL;MOTRIN) 200 MG tablet Take 200 mg by mouth every 6 hours as needed for Pain 0 Jttzqw72 ml lidocaine hydrochloride 10 mg/ml injection (1 source)Antiarrhythmic, Amide Local AnestheticStart: 08-13-2022 End: 83-25-6112qrauvwyyc PF 1 % injection 1 mLLORazepam 0.5 mg oral tablet (1 source)BenzodiazepineStart: 03-10-2024 End: 02-38-5444ngte 1 tablet by mouth three times daily as needed for anxiety LORazepam (Ativan) 0.5 MG tablet Indications: Generalized anxiety disorder (CMS/HCC) Take 1 tablet (0.5 mg) by mouth 3 (three) times a day as needed for anxiety for up to 10 days 30 tablet Activemagnesium oxide 500 mg oral capsule (18 sources)Magnesium 500 MG capsule Take by mouth. Activetake 1 tablet by mouth once dailymagnesium oxide (MAG-OX) 400 MG tablet Take 400 mg by mouth daily 0 Active2 ml midazolam 1 mg/ml injection (2 sources)BenzodiazepineStart: 70-34-3679tzvgehozf (VERSED) injection 1 mg Start: 04-04-2020 End: 98-86-0592ozizeoucn (VERSED) injection 2 mgMultiple Vitamins-Minerals (THERAPEUTIC MULTIVITAMIN-MINERALS) tablet (3 sources)take 1 tablet by mouth once dailyMultiple Vitamins-Minerals (THERAPEUTIC MULTIVITAMIN-MINERALS) tablet Take 1 tablet by mouth daily 0 Active 2 ml ondansetron 2 mg/ml injection (1 source)Serotonin-3 Receptor AntagonistStart: 08-13-2022 End: 01-54-6755mwiyfzltkrp (ZOFRAN) injection 4 mgoxyCODONE hydrochloride 5 mg oral tablet (2 sources)Opioid AgonistStart: 73-32-0199zsmVBJROQ (ROXICODONE) immediate release tablet 10 mgStart: 76-95-8475cnlQGYBPT (ROXICODONE) immediate release tablet 5 mgpredniSONE 50 mg oral tablet (2 sources)Start: 09-07-2024 End: 15-54-8755naes 1 tablet by mouth once dailypredniSONE (Deltasone) 50 MG tablet Indications: Chronic rhinosinusitis Take 1 tablet (50 mg) by mouth Daily for 6 days 6 tablet 09/07/2024 09/13/2024 ActivePromethazine (1 source)PhenothiazineStart: 40-39-5778fhxdrdkxajnu (PHENERGAN) tablet 12.5 mg sennosides, prison 1.76 mg/ml oral solution (1 source)Start: 29-64-0470qidl 8.8 mg by mouth twice daily as needed for constipation8.8 mg (5 mL), Oral, 2 TIMES DAILY PRN, Constipation, Starting Fri04/04/20 at 2112 Second line therapy for constipation, After 24 hours, if no result from first line PRN therapy, give second line therapy in combination with first line therapy. Post-op5 ml sodium chloride 9 mg/ml injection (11 sources)Start: 70-06-4724vgoqvs chloride flush 0.9 % injection 5-40 mLStart: 13-35-2892felwwf chloride flush 0.9 % injection 5-40 mLStart: .9 % sodium chloride infusionStart: 73-26-5830ratbuy chloride flush 0.9 % injection 5-40 mLStart: 94-34-828455 mL, Intravenous, EVERY 12 HOURS SCHEDULED (2 times per day), First dose on Fri04/04/20 at 2130, Post-opStart: 12-59-8007jufp 10 mL intravenous route once10 mL, Intravenous, PRN, Line Care, Starting Fri04/04/20 at 2112 After every IV line use Post-opStart: 21-78-9570dztk 1 mL by mouth every hourIntravenous, at 100 mL/hr, CONTINUOUS, Starting Fri04/04/20 at 1600 May decrease/DC as patient tolerates PO intake and voiding well ( > or = 0.5 cc/kg/h). Post-opStart: 32-93-3736ksdgdl chloride flush 0.9 % injection 10 mL triamcinolone acetonide 5 mg/ml topical cream (8 sources)Corticosteroid End: 77-42-9972yidpcokkeayqf (Kenalog) 0.5 % cream Apply topically 3 (three) times a day. 09/07/2024 Discontinued Completed/Discontinued Medications MedicationDrug Class(es)DatesSig (Normalized)Sig (Original)acetaminophen 325 mg / HYDROcodone bitartrate 5 mg oral tablet (4 sources)Opioid Agonist End: 12-60-0917kapp 1 tablet by mouth every six hours as needed for pain HYDROcodone-acetaminophen (NORCO) 5-325 MG per tablet Take 1 tablet by mouth every 6 hours as needed for Pain. 0 04/05/2020 Discontinued (Stop Taking at Discharge)bupivacaine 0.125% (MARCAINE) in sodium chloride 0.9% injection 20 mL (1 source)Start: 04-04-2020 End: 36-64-4960tmbnsnsyjvs 0.125% (MARCAINE) in sodium chloride 0.9% injection 20 mLceFAZolin (ANCEF) 2 g in dextrose 5 % 50 mL IVPB (1 source)Start: 04-04-2020 End: 04-05-20202 g, Intravenous, at 100 mL/hr, Administer over 30 Minutes, EVERY 8 HOURS, First dose on Fri04/04/20 at 2130, For 2 doses, Post-op1 ml dexamethasone phosphate 4 mg/ml injection (1 source)CorticosteroidStart: 04-04-2020 End: 68-62-3779jhfbpfvornkbc (DECADRON) injection 8 mglevothyroxine sodium 0.075 mg oral tablet (19 sources)l-ThyroxineStart: 03-09-2025 End: 00-17-3894loev 1 tablet by mouth once dailyLevothyroxine 75 mcg tablet Discontinued 75 MCG PO Daily March 09, 2025 12:00am March 10, 2025 11:06am Start: 01-28-2024 End: 56-64-4052odpwkmlyqjzxf (Synthroid, Levoxyl) 75 MCG tablet Indications: Hypothyroidism, adult TAKE 1 TABLET DAILY 90 tablet 3 03/22/2024 ActiveStart: 64-77-1156ynvp 1 tablet by mouth once dailySYNTHROID 75 MCG tablet Take 75 mcg by mouth Daily 0 01/31/2020 ActivetraMADol hydrochloride 50 mg oral tablet (1 source)Opioid AgonistStart: 04-04-2020 End: 56-24-4101nfdMHKeg (ULTRAM) tablet 50 mg Problems Active Problems Problem ClassificationProblemDateDocumented DateEpisodic/ChronicAnxiety disorders (18 sources)Generalized anxiety disorder; Translations: [Generalized anxiety disorder]Onset: 037849-24-8010XrjipxiLuzhabz dysrhythmias (13 sources)Palpitations; Translations: [Palpitations]Onset: 03-09-2024 89-04-0866KynbtkjkEahmscwo mellitus without complication (11 sources)Prediabetes; Translations: [Prediabetes]Onset: 760291-32-3610 EpisodicDisorders of lipid metabolism (15 sources)Hyperlipidemia, unspecified; Translations: [Hyperlipidemia]Onset: 581792-13-0492NcmialeOuliiklerpizr and screening for infectious disease (1 source)Raised antibody titer; Translations: [Raised antibody titer]Onset: 50-50-1076YudvpgzzJglae disorders and dislocations; trauma-related (5 sources)Degenerative rupture of medial meniscus of left knee; Translations: [Derangement of unspecified medial meniscus due to old tear or injury, left knee]Onset: 91-61-2797YzlpjlpVanhz disorders and dislocations; trauma-related (4 sources)Other tear of medial meniscus, current injury, right knee, subsequent encounter; Translations: [OTHTEAR MED MENSC CURR RT KNEE SUB]Onset: 08-23-2022 EpisodicJoint disorders and dislocations; trauma-related (1 source)Other tear of medial meniscus, current injury, left knee, initial encounter; Translations: [OTH TEAR MED MENSC CUR LT KNEE INIT]Onset: 07-03-2022 EpisodicMiscellaneous mental health disorders (17 sources)Primary insomnia; Translations: [Primary insomnia]Onset: 09-02-2023 38-76-4879LioqknpQoed disorders (17 sources)Recurrent major depressive episodes, mild ; Translations: [Major depressive disorder, recurrent, mild]Onset: 895016-45-0789Bwklpdk Osteoarthritis (20 sources)Osteoarthritis of left hip joint; Translations: [Unilateral primary osteoarthritis, left hip]Onset: 870141-31-5602QcumgcyIzmjm aftercare (14 sources)Long-term current use of drug therapy; Translations: [Other rn long term care (current) drug therapy]Onset: 097743-65-1124HlbpywomVfgbb connective tissue disease (6 sources)History of total hip arthroplasty; Translations: [Presence of left artificial hip joint]Onset: 646402-86-3018UaakzzbCtovg connective tissue disease (2 sources)Synovial plica syndrome of left knee; Translations: [Plica syndrome, left knee]Onset: 22-12-0275LbtwihcnQmfws connective tissue disease (14 sources)Pain in right foot; Translations: [Pain in right foot]Onset: 889541-99-3174DdkcjzanCorho gastrointestinal disorders (12 sources)Irritable bowel syndrome; Translations: [Irritable bowel syndrome without diarrhea]Onset: 317233-10-6300OufpkyuVntor inflammatory condition of skin (12 sources)Seborrheic dermatitis; Translations: [Seborrheic dermatitis, unspecified]Onset: 236720-59-8589JuoodggwVjtnt nervous system disorders (2 sources)Postoperative pain ; Translations: [Other acute postprocedural pain] EpisodicOther nervous system disorders (1 source)Other acute postprocedural pain; Translations: [Other acute postprocedural pain]Onset: 79-15-5752CidiwnltLnsfi non-traumatic joint disorders (6 sources)Pain in left knee; Translations: [Pain in left knee]Onset: 04-10-2022 EpisodicOther non-traumatic joint disorders (12 sources)Joint pain in right hand; Translations: [Pain in joints of right hand]Onset: 366966-28-7720RnaeibkdMaaml non-traumatic joint disorders (12 sources)Joint pain; Translations: [Pain in unspecified joint]Onset: 018406-61-7359LkkielatSoiwl non-traumatic joint disorders (12 sources)Pain in right knee; Translations: [Pain in joint, lower leg]Onset: 067117-44-0031UbvcnqiwRdafq non-traumatic joint disorders (2 sources)Chronic pain of right upper limb; Translations: [Pain in right shoulder]62-06-7087QbfvrshvPyglr non-traumatic joint disorders (1 source)Arthritis of left hip; Translations: [Arthritis of left hip]Other nutritional; endocrine; and metabolic disorders (1 source)Obesity, unspecified; Translations: [OBESITY UNSPECIFIED]Onset: 55-02-4973GqfvjemNolbb nutritional; endocrine; and metabolic disorders (2 sources)Obesity caused by energy imbalance; Translations: [Class 1 obesity due to excess calories with serious comorbidity and body mass index (]03-10-2025 ChronicOther screening for suspected conditions (not mental disorders or infectious disease) (7 sources)Blood chemistry abnormal; Translations: [Encounter for screening mammogram for malignant neoplasm of breast]Onset: 87-37-6567AgoqozpyXuhyf upper respiratory infections (17 sources)Chronic sinusitis, unspecified; Translations: [Chronic rhinitis] Onset: 184869-63-4390IsnisgdPxsjkbqr codes; unclassified (1 source)Other specified postprocedural states; Translations: [OTH SPECIFIED POSTPROCEDURAL STATES]Onset: 33-61-1816SdpsehalRsdewpcv codes; unclassified (1 source)Family history of malignant neoplasm of digestive organs; Translations: [FAM HX MALIG NEOPLASM DIGESTIV ORGN]Onset: 25-83-2912Pcsygzdu Residual codes; unclassified (1 source)Family history of malignant neoplasm of prostate; Translations: [FAMILY HX MALIG NEOPLASM PROSTATE]Onset: 36-69-3808MhgvtlahZxwirtrfx and history of mental health and substance abuse codes (7 sources)Ex-smoker; Translations: [Personal history of nicotine dependence] Onset: 595009-97-3559OnbvtomaBbzsjiixjfe; intervertebral disc disorders; other back problems (20 sources)Degeneration of cervical intervertebral disc; Translations: [Other cervical disc degeneration, unspecified cervical region]Onset: 09-02-2023 74-55-7912VmntvtrLbkpxtn and strains (1 source)Strain of other muscle(s) and tendon(s) at lower leg level, left leg, initial encounter; Translations: [STRAIN OTH MSC TEND LOW LT LEG INIT]Onset: 76-44-0403NcvzqxuoTsjwvrc disorders (15 sources)Hypothyroidism; Translations: [Hypothyroidism, unspecified]Onset: 200163-62-0667EmdmmpnZyxpxcoyhmyz (1 source)Patient encounter status; Translations: [Pre-op testing]Unclassified (6 sources)Patient on antidepressant monitoring planOnset: 143302-95-6504 Unclassified (6 sources)Baseline PHQ-9Onset: 856699-75-5499Occramigudfh (2 sources)Chronic pain of right upper limb; Translations: [M25.511 - Pain in right shoulder,G89.29 - Other chronic pain] Past or Other Problems Problem ClassificationProblemDateDocumented DateEpisodic/ChronicMood disorders (2 sources)Mood disordersOnset: Other aftercare (4 sources)Other snf (current) drug therapy; Translations: [OTH CARE HOME CURRENT DRUG THERAPY]Onset: 17-00-0407LfomidfaPqded non-traumatic joint disorders (1 source)Pain in unspecified joint; Translations: [PAIN IN UNSPECIFIED JOINT] Onset: 71-66-2352BpkixxnbFihid non-traumatic joint disorders (4 sources)Pain in joints of right hand; Translations: [PAIN IN JOINTS OF RIGHT HAND]Onset: 95-69-9232Sksuudlt Results Test NameValueInterpretationReference RangeFacilityEKG 12 LeadOrdered By: Konrad Hui on 93-86-0386Msnvav [id number] [employer] Phone: [phone] Brgx42dhhwuuiCPJTUTORize Phone: P-R Glnzhwrq953 [employer] Phone: Q-T Cmzmvncm341 [employer] Phone: QRS Hsjuhdlt400 [employer] Phone: QTc Calculation (Bazett)420 msBON [employer] Phone: R [place]-15degreesFast Track [employer] Phone: T Ssgs82ykwmimsZUIFast Track [employer] Phone: Ventricular Ezyd95FEWPQI [employer] Phone: BON [employer] Phone: [phone] 12 Leadon 52-46-0014Ufsrol sinus rhythm Normal ECG No previous ECGs availableGUADALUPE [facility] Konrad Hare MD - 07/25/2022 Normal sinus rhythm Normal ECG No previous ECGs available [facility] [employer] Phone: cBCon 34-83-1165Poumzqiuxth distribution width (RBC) [Ratio]14.0 %Qgrjkk64.8-14.4CentervilleComment on above:Performed By: #### CBC, CP #### [facility] [address] [place] [id number] Grain Scooper: Israel Castorena MDHematocrit (Bld) [Volume fraction]41.3 %Normal 36.3-47.1MProvidence Sacred Heart Medical CenterComhealthsource sag[place] on above:Performed By: #### CBC, CP #### [facility] [address] [place] [address] Grain Scooper: Israel Castorena MDHemoglobin (Bld) [Mass/Vol]13.0 g/dLNormal 11.9-15.1MProvidence Sacred Heart Medical CenterComment on above:Performed By: #### CBC, CP #### [facility] [address] [place] [id number] Grain Scooper: MIO BeltranCH (RBC) [Entitic mass]29.5 bjOyaibs02.2-33.5 CentervilleComhealthsource [place] on above:Performed By: #### CBC, CP #### [facility] [address] [place] [address] Grain Scooper: RAHEEL BeltranC (RBC) [Mass/Vol]31.5 g/cHUnghts01.4-34.8 [facility]ervilleComhealthsource [place] on above:Performed By: #### CBC, CP #### [facility] [address] [place] [address] Grain Scooper: MIO BeltranCV (RBC) [Entitic vol]93.7 kMPmykeg79.6-102.9 CentervilleComment on above:Performed By: #### CBC, CP #### [facility] [address] [place] [address] Grain Scooper: SYDNEY Beltran Automated0.0 per 100 WBCNormal0.0[facility] on above:Performed By: #### CBC, CP #### [facility] [address] [facility] [place] [address] Grain Scooper: Roland Beltran mean volume (Bld) [Entitic vol]11.0 fL Normal8.1-13.5CentervilleComhealthsource [place] on above:Performed By: #### CBC, CP #### [facility] [facility] [place] [address] Grain Scooper: Nguyễn Beltran (Bld) [#/Vol]217 10*3/tFHhvbgh443-730 [facility]Comhealthsource [place] on above:Performed By: #### CBC, CP #### [facility] [address] [facility] [place] [address] Grain Scooper: KRISSY Beltran (Bld) [#/Vol]4.41 10*6/uLNormal3.95-5.11 [facility] on above:Performed By: #### CBC, CP #### [facility] [address] [place], [place] [address]ia [facility] [place] [address] Grain Scooper: VIRGILIO Beltran (Bld) [#/Vol]6.9 10*3/uLNormal3.5-11.3MMount [facility] on above:Performed By: #### CBC, CP #### [facility] [place] [address] Grain Scooper: Israel Castorena MDHematocrit (Bld) [Volume fraction]41.3 %36.3 - 47.1 %[facility] GENERALHemoglobin (Bld) [Mass/Vol]13.0 g/dL11.9 - 15.1 g/dLBON [facility]OSPITALH (RBC) [Entitic mass]29.5 pg25.2 - 33.5 pgBON [facility] THE JEWISH HOSPITALHC (RBC) [Mass/Vol]31.5 g/dL28.4 - 34.8 g/dLBON MERCY HEALTH – THE JEWISH HOSPITALV (RBC) [Entitic vol]93.7 fL82.6 - 102.9 fLRIVERSIDE DOCTORS' HOSPITAL WILLIAMSBURGNRBC Automated0.00.0 per 100 WBCBON [facility] GENERALPlatelet distribution width (Bld) [Ratio]14.0 %11.8 - 14.4 %[facility] Platelet mean volume (Bld) [Entitic vol]11.0 fL8.1 - 13.5 fLTWIN COUNTY REGIONAL HEALTHCARE HEALTHPlatelets (Bld) [#/Vol]217 10*3/uLRIVERSIDE DOCTORS' HOSPITAL WILLIAMSBURGRBC (Bld) [#/Vol]4.41 10*6/uL3.95 - 5.11 m/uLBON [facility] CLINIC AK[facility] GENERALWBC (Bld) [#/Vol]6.9 10*3/uLBON [facility] HOSPITALComp Metabolic Profon 04-02-5002Tnnmnst [Mass/Vol]4.3 g/dLNormal3.5-5.2Mercy Multicare HealthComment on above:Performed By: #### CBC, CP #### [facility] [address] [facility] [place] [address] Grain Scooper: Trevor Beltranline Xmoo336 U/SEpcvub57-619UdprcCentervilleComhealthsource saginaw on above:Performed By: #### CBC, CP #### [facility] [address] [facility] [place] [address] Grain Scooper: Israel Castorena MDALT [Catalytic activity/Vol]64 U/LHigh5-33CentervilleComment on above:Performed By: #### CBC, CP #### [facility] [address] [facility] [place] [address] Grain Scooper: Israel Castorena MDAnion gap [Moles/Vol]8 mmol/LLow9-17MerMultiCare Tacoma General HospitalComment on above:Performed By: #### CBC, CP #### [facility] [address] [place] [address]. [place] [address] Grain Scooper: Israel Castorena MDAST [Catalytic activity/Vol]39 U/LHigh<32MerMultiCare Tacoma General HospitalComment on above:Performed By: #### CBC, CP #### [facility] [address] [place] [address]. [place] [address] Grain Scooper: Israel Castorena MDBilirubin [Mass/Vol]0.2 mg/dLLow0.3-1.2MercSkyline HospitalComment on above:Performed By: #### CBC, CP #### [facility] [address] [place] [address] Grain Scooper: PAMELA Beltran/CRE Mtoll04Pgvk0-46Vrhyd [facility] Comment on above:Performed By: #### CBC, CP #### [facility] [address] [place] [address]. [place] [address] Grain Scooper: JUAN Beltranalcium [Mass/Vol]9.4 mg/dLNormal8.6-10.4MerMultiCare Tacoma General HospitalComment on above:Performed By: #### CBC, CP #### [facility] [address] [place] [address]. [place] [address] Grain Scooper: Israel Castorena MDChloride [Moles/Vol]103 mmol/ETzaeiu38-128ImssdMultiCare Tacoma General HospitalComment on above:Performed By: #### CBC, CP #### [facility] [address] [facility] [place] [address] Grain Scooper: JUAN BeltranO2 [Moles/Vol]30 mmol/WRrkxub90-80BbissCentervilleComhealthsource saginaw on above:Performed By: #### CBC, CP #### [facility] [place] [address] Grain Scooper: JUAN Beltranreatinine [Mass/Vol]0.78 mg/dLNormal0.50-0.90 CentervilleComment on above:Performed By: #### CBC, CP #### [facility] [address] [place] [address]. [place] [address] Grain Scooper: Israel Castorena MDGFR/1.73 sq M.predicted among non-blacks MDRD (S/P/Bld) [Vol rate/Area]mL/min/{1.73_m2}Normal>60CentervilleComment on above:Result Comment: These results are not intended for use in patients <18 years of age. eGFR results are calculated without a race factor using the 2020 CKD-EPI equation. Careful clinical correlation is recommended, particularly when comparing to results calculated using previous equations. The CKD-EPI equation is less accurate in patients with extremes of muscle mass, extra-renal metabolism of creatine, excessive creatine ingestion, or following therapy that affects renal tubular secretion.Performed By: #### CBC, CP #### [facility] [place] [address] Grain Scooper: Israel Castorena MDGlucose [Mass/Vol]72 mg/qDPuibga13-73NeiobProvidence Sacred Heart Medical CenterComhealthsource saginaw on above:Performed By: #### CBC, CP #### [facility] [address] [facility] [place] [address] Grain Scooper: FABY Beltranotassium [Moles/Vol]3.9 mmol/LNormal3.7-5.3 CentervilleComment on above:Performed By: #### CBC, CP #### [facility] [address] [place] [address] Grain Scooper: FABY Beltranrotein [Mass/Vol]6.9 g/dLNormal6.4-8.3MProvidence Sacred Heart Medical CenterComment on above:Performed By: #### CBC, CP #### [facility] [address] [place] [address] Grain Scooper: AMBROSIO Beltranodium [Moles/Vol]141 mmol/XBexqnn922-729VdgfvCentervilleComment on above:Performed By: #### CBC, CP #### [facility] [address] [place] [address] Grain Scooper: Israel Castorena MDUrea nitrogen [Mass/Vol]20 mg/dLNormal8-23CentervilleComment on above:Performed By: #### CBC, CP #### [facility] [address] [place] [address] Grain Scooper: JUAN Beltranomprehensive Metabolic Panelon 07-24-2022 Albumin [Mass/Vol]4.3 g/dL3.5 - 5.2 g/dLBON [facility] CLINIC [facility] GENERALALP [Catalytic activity/Vol]102 U/L35 - 104 U/LBON [facility] GENERALALT [Catalytic activity/Vol]64 U/LHigh5 - 33 U/LBON [facility] GENERALAnion gap [Moles/Vol]8 mmol/LLow9 - 17 mmol/LBON [facility] GENERALAST [Catalytic activity/Vol]39 U/L HighNINF - 32 U/LBON [facility] GENERALBilirubin [Mass/Vol]0.2 mg/dLLow0.3 - 1.2 mg/dLBON SECOURS MERCY HEALTHCalcium [Mass/Vol]9.4 mg/dL8.6 - 10.4 mg/dLBON [facility] MEDICAL CENTERArno Therapeutics HEALTHChloride [Moles/Vol]103 mmol/L98 - 107 mmol/LBON [facility]IONAL MEDICAL CENTERJenn RykertCO2 [Moles/Vol]30 mmol/L20 - 31 mmol/LBON [facility] [employer] Creatinine [Mass/Vol]0.78 mg/dL0.50 - 0.90 mg/dLBON KINGMAN REGIONAL MEDICAL CENTERJenn RykertGFR/1.73 sq M.predicted MDRD (S/P/Bld) [Vol rate/Area]- PINFBBON [facility]OU[facility] [employer] Comment on above: These results are not intended for use in patients <18 years of age. eGFR results are calculated without a race factor using the 2020 CKD-EPI equation. Careful clinical correlation is recommended, particularly when comparing to results calculated using previous equations. The CKD-EPI equation is less accurate in patients with extremes of muscle mass, extra-renal metabolism of creatine, excessive creatine ingestion, or following therapy that affects renal tubular secretion. Glucose [Mass/Vol]72 mg/dL70 - 99 mg/dLBON KINGMAN REGIONAL MEDICAL CENTERJenn RykertInterpretation and review of laboratory resultsAbnormalBON KINGMAN REGIONAL MEDICAL CENTERArno Therapeutics HEALTHPotassium [Moles/Vol]3.9 mmol/L3.7 - 5.3 mmol/LBON [facility] REGIONAL MEDICAL CENTERArno Therapeutics HEALTHProtein [Mass/Vol] 6.9 g/dL6.4 - 8.3 g/dLBON KINGMAN REGIONAL MEDICAL CENTERWisegate J.[facility] HOSPITALcoRank COMMUNITY MEMORIAL HOSPITALSodium [Moles/Vol]141 mmol/L135 - 144 mmol/LBON [facility] MEDICAL CENTERClueyUrea nitrogen [Mass/Vol]20 mg/dL8 - 23 mg/dL [facility] [employer] Ruralco HoldingsUrea nitrogen/Creatinine (Bld) [Mass ratio]75Ddmr7 - 20 [facility] ASYLUMChurchPairing HEALTHBON KINGMAN REGIONAL MEDICAL CENTERChurchPairingUNIVERSITY HOSPITALS CONNEAUT MEDICAL CENTERNo Panel Informationon 17-47-3529Np acute process. MHPN RIS CONSOLIDATEDEXAMINATION: TWO XRAY VIEWS OF THE CHEST 07/24/2022 3:44 pm COMPARISON: March 23, 2020 HISTORY: ORDERING SYSTEM PROVIDED HISTORY: Pre-op testing TECHNOLOGIST PROVIDED HISTORY: pre-op Reason for Exam: pre op eval, knee scope on 08-13-22. no chest complaints FINDINGS: The lungs are without acute focal process. There is no effusion or pneumothorax. The cardiomediastinal silhouette is without acute process. The osseous structures are without acute process. Kolby Finch DO - 07/24/2022 EXAMINATION: TWO XRAY VIEWS OF THE CHEST 07/24/2022 3:44 pm COMPARISON: March 23, 2020 HISTORY: ORDERING SYSTEM PROVIDED HISTORY: Pre-op testing TECHNOLOGIST PROVIDED HISTORY: pre-op Reason for Exam: pre op eval, knee scope on 08-13-22. no chest complaints FINDINGS: The lungs are without acute focal process. There is no effusion or pneumothorax. The cardiomediastinal silhouette is without acute process. The osseous structures are without acute process. IMPRESSION: No acute process. [employer] Work Phone: radiology Study observation (narrative)[employer] Work Phone: No Panel InformationOrdered By: Kolby Covington on 74-35-7795[employer] Work Phone: Urinalysison 25-39-8620Njfrvsixf UrineNegativeNEGATIVE BON SECChurchPairingY HEALTHColor, UAYellowYellowBON SECOURS TurbogenY HEALTHGlucose Auto test strip (U) [Mass/Vol]NegativeNEGATIVEBON SECOURS MERCY HEALTHKetones (U) [Mass/Vol]NegativeNEGATIVEBON SECOURS MERCY HEALTHLeukocyte esterase Auto test strip Ql (U)NegativeNEGATIVEBON SECOURS MERCY HEALTHNitrite Auto test strip Ql (U)NegativeNEGATIVEBON SECOURS MERCY HEALTHProtein (U) [Mass/Vol]6.0 mg/dL 5.0 - 8.0B[facility]CY HEALTHProtein (U) [Mass/Vol]NegativeNEGATIVEBON SECOURS MERCY HEALTHSpecific [place], UA1.0201.005 - 1.030B[facility] HEALTHTurbidity UAClearClearBON SECOURS MERCY HEALTHUrinalysis Comments Microscopic exam not performed based on chemical results unless requested in original order.BON SECChurchPairingY HEALTHUrine HgbNegativeNEGATIVEBON SECOURS MERCY HEALTHUrobilinogen, UrineNormalNormalBON SECOURS MERCY HEALTHBON SECOURS MERCY HEALTHUrinalysis, Routineon 66-46-1657Yjmpjyjki, SemiQt,UrNegativeNormal NEGMerMultiCare Tacoma General HospitalComment on above:Performed By: #### UA #### [facility] [address] [place] [address] Grain Scooper: Dorcas Beltran, UrineNegativeNormalNEGMerMultiCare Tacoma General HospitalComhealthsource saginaw on above:Performed By: #### UA #### [facility] [address] [place] [address] Grain Scooper: JUAN Beltranlarity (U)ClearNormalCLEARMerMultiCare Tacoma General HospitalComhealthsource saginaw on above:Performed By: #### UA #### [facility] [address] [place] [address] Grain Scooper: JUAN Beltranolor (U)YellowNormalYELMerMultiCare Tacoma General Hospital Comment on above:Performed By: #### UA #### [facility] [address] [facility] [place] [address] Grain Scooper: JUAN BeltranomtripMicroscopic exam not performed based on chemical results unless requested inNormalCentervilleComment on above:Result Comment: original order.Performed By: #### UA #### [facility] [address] [place] [address] Grain Scooper: Israel Castorena MDGlucose Ql (U)NegativeNormalNEGMerMultiCare Tacoma General HospitalComhealthsource saginaw on above:Performed By: #### UA #### [facility] [address] [facility] [place] [address] Grain Scooper: Israel Castorena MDKetones Ql (U)NegativeNormalNEGMerMultiCare Tacoma General HospitalComhealthsource saginaw on above:Performed By: #### UA #### [facility] [address] [place] [address] Grain Scooper: Israel Castorena MDLeukocyte esterase Test strip Ql (U)Negative NormalNEGKettering Health Main Campus on above:Performed By: #### UA #### [facility] [address] [place] [address] Grain Scooper: Marta Beltranite,UrNegativeNormalNEGKettering Health Main Campus on above:Performed By: #### UA #### [facility] [address] [facility] [place] [address] Grain Scooper: FABY Beltran,Ur6.7Mviibt2.0-8.0[place] Comment on above:Performed By: #### UA #### [facility] [address] [facility] [place] [address] Grain Scooper: FABY Beltranrotein Ql (U)NegativeNormalNEGCentervilleComhealthsource saginaw on above:Performed By: #### UA #### [facility] [address] [place] [address] Grain Scooper: AMBROSIO Beltranpec. [place],Ur1.424Jbgqpu3.005-1.030MerMultiCare Tacoma General HospitalComhealthsource saginaw on above:Performed By: #### UA #### [facility] [address] [facility] [place] [address] Grain Scooper: Nisa Beltraninogen,UrNormalNormalNORMMerFairfax Hospital on above:Performed By: #### UA #### [facility] [address] [place] [address] Grain Scooper: RICHIE BeltranR CHEST (2 VW)on 75-10-8893ZG CHEST (2 VW) EXAMINATION: TWO XRAY VIEWS OF THE CHEST 07/24/2022 3:44 pm COMPARISON: March 23, 2020 HISTORY: ORDERING SYSTEM PROVIDED HISTORY: Pre-op testing TECHNOLOGIST PROVIDED HISTORY: pre-op Reason for Exam: pre op eval, knee scope on 08-13-22. no chest complaints FINDINGS: The lungs are without acute focal process. There is no effusion or pneumothorax. The cardiomediastinal silhouette is without acute process. The osseous structures are without acute process. IMPRESSION: No acute process. Interpreted by: Kolby Covington DO Signed by: Kolby Covington DO 07/24/22 Final resultNormalCentervilleXR KNEE LEFT (MIN 4 VIEWS)on 07-04-2022 XR KNEE LEFT (MIN 4 VIEWS)History: Left knee pain Findings: Standing AP, lateral, merchant, tunnel view x-rays of the left knee done the office todayshows moderate diffuse chondrocalcinosis with mild approaching moderate joint space narrowing medially and laterally. No evidence of fracture, subluxation, dislocation, radiopaque foreign body, radiopaque tumors noted. Impression: Left knee chondrocalcinosis with moderate degenerative changes as described above. Interpreted by: Crystal Mcadams DO Signed by: Crystal Mcadams DO 07/04/22 Final resultNoMcKitrick HospitalMG MAMM SCREEN 3D ARMANDO CADon [id number] MAMM SCREEN 3D ARMANDO CADPatient: RADHA FARNSWORTH Exam Date: 07/01/2022 : 1950 Gender:F [facility]ing : [facility] Admission #: [id number] Family : Order #: [id number] CLICK HERE TO VIEW EXAM RADIOLOGY REPORT PROCEDURE: MAMMOGRAM SCREENING 3D BILATERAL CAD COMPARISON: MG MAMM SCREEN ARMANDO W CAD, 08/26/2017. MG MAMM SCREEN ARMANDO W CAD, 11/02/2014. MG MAMM SCREEN 3D ARMANDO CAD, 09/26/2020. INDICATIONS: Screening mammography Calculator Name NCI Breast Cancer Risk Assessment Tool 5 Year Breast Cancer Risk 1.40% Lifetime Breast Cancer Risk 3.80% Personal Breast Cancer No Personal Ovarian Cancer No Treatments None Family Cancers Mother with pancreatic cancer at age 68; Brother with prostate cancer at age 60. LOCATION: [facility] BREAST COMPOSITION: Scattered areas fibroglandular density. FINDINGS: DIAGNOSTIC CATEGORY 1--NEGATIVE. RIGHT BREAST: No significant suspicious finding. No significant change has occurred. LEFT BREAST: No significant suspicious finding. No significant change has occurred. RECOMMENDATIONS: ROUTINE MAMMOGRAM AND CLINICAL EVALUATION IN 12 MONTHS. PLEASE NOTE: A NORMAL MAMMOGRAM DOES NOT EXCLUDE THE POSSIBILITY OF BREAST CANCER. A CLINICALLY SUSPICIOUS PALPABLE LUMP SHOULD BE BIOPSIED. Dictated by: Dennise Barlow M.D. on 07/02/2022 at 07:45 Approved by: Dennise Barlow M.D. on 07/02/2022 at 07:47Marymount HospitalMRI KNEE LT WO CONon [id number] KNEE LT WO CONEXAMINATION: MRI KNEE LT WO CON HISTORY: Pain of left knee joint ; chronic COMPARISON: No relevant comparison available. TECHNIQUE: A complete multi-planar MRI was performed. FINDINGS: MEDIAL COMPARTMENT MEDIAL MENISCUS: Undersurface tear of the body and posterior junction. CARTILAGE: Moderate thinning without focal defect. BONES: No marrow pathology, fracture, or significant arthropathy. MCL AND MEDIAL CAPSULE: Grade I sprain of the medial collateral ligament. LATERAL COMPARTMENT LATERAL MENISCUS: No visible tear or significant degeneration. CARTILAGE: Moderate thinning without focal defect. BONES: No marrow pathology, fracture, or significant arthropathy. LCL/POSTEROLAT COMPLEX: Normal lateral collateral ligament, fascicles, lateral capsule and ligaments. ANTERIOR COMPARTMENT PATELLA: Superior pole lateral facet subcutaneous edema. CARTILAGE: Small cartilage defect involving superior pole of the lateral facet. TENDONS: Normal. EFFUSION: None. No synovitis or loose bodies. ACL: Normal appearing ligament. PCL: Normal appearing ligament. Small subchondral cyst within the tibia near its attachment. MENISCOFEMORAL: Normal meniscofemoral ligaments. OTHER: Negative. IMPRESSION: 1. Undersurface tear of body and posterior junction of medial meniscus. 2. Mild strain of the medial collateral ligament. 3. Moderate thinning of cartilage involving the medial, lateral, and anterior compartments. 4. Grade IV chondromalacia involving superior pole of lateral patellar facet. Electronically authenticated by: DENNISE BARLOW Date: 2022-07-01 16:43Marymount HospitalAutomated basophil %Ordered By: Lauro Brito on 02-21-2022 Basophils/100 WBC (Bld)0.6 %Normal.[facility] Memorial HospitalComment on above:Performed By: #### CREAT, CRP, ESR, CBC #### [facility] [address] [place] [address] USAAutomated basophil countOrdered By: Lauro Brito on 06-26-3252Qbnyuhfyf (Bld) [#/Vol]0.0 10*3/uLNormal0.0-0.2FMercy Health Willard HospitalComment on above:Performed By: #### CREAT, CRP, ESR, CBC #### [place] [address] USAAutomated blood lymphocyte count (number/volume)Ordered By: Lauro Brito on 71-43-1211Obwrtszhmnv (Bld) [#/Vol]2.3 10*3/uLNormal 1.00-4.8Mer[facility] Memorial HospitalComment on above:Performed By: #### CREAT, CRP, ESR, CBC #### [place] [address] USAAutomated blood lymphocyte count as percentage of total leukocytesOrdered By: Lauro Brito on 95-12-0202Asvppbqizzf/100 WBC (Bld)29.3 %Normal.[facility] Memorial HospitalComment on above:Performed By: #### CREAT, CRP, ESR, CBC #### [place] [address] USAAutomated blood monocyte countOrdered By: Lauro Brito on 38-57-2040Ervkzmkxx (Bld) [#/Vol]0.6 10*3/uLNormal0.0-0.8Mer[facility] Memorial HospitalComment on above:Performed By: #### CREAT, CRP, ESR, CBC #### [place] [address] USAAutomated blood platelet count (count/volume)Ordered By: Lauro Brito on 73-06-0249Vghoqlsfc (Bld) [#/Vol]212 10*3/oOZtmogt292-173 [facility] CenterComment on above:Performed By: #### CREAT, CRP, ESR, CBC #### [place] [address] USAAutomated blood platelet mean volume measurementOrdered By: Lauro Brito on 47-27-1146Fmiwngrx mean volume (Bld) [Entitic vol]9.7 fL Normal6.3-10.7FMercy Health Willard HospitalComment on above:Performed By: #### CREAT, CRP, ESR, CBC #### [place] [address] USAAutomated eosinophil %Ordered By: Lauro Brito on 28-70-3459Pdxqdcusodu/100 WBC (Bld)1.9 %Normal.[facility] Comment on above:Performed By: #### CREAT, CRP, ESR, CBC #### [place] [address] USAAutomated eosinophil countOrdered By: Lauro Brito on 74-29-8573Opggjjktpxu (Bld) [#/Vol]0.2 10*3/uLNormal0.0-0.45Mer[facility] Memorial HospitalComment on above:Performed By: #### CREAT, CRP, ESR, CBC #### [place] [address] USAAutomated erythrocyte distribution width ratioOrdered By: Lauro Brito on 78-00-6576Rygdmwvhmnh distribution width (RBC) [Ratio]14.4 % Tambve30.9-15.3FMercy Health Willard HospitalComment on above:Performed By: #### CREAT, CRP, ESR, CBC #### [place] [address] USAAutomated erythrocyte mean corpuscular hemoglobin (mass per erythrocyte)Ordered By: Lauro Brito on 65-85-2216OEE (RBC) [Entitic mass] 29.6 bnDaozmx18.7-34.3FMercy Health Willard HospitalComment on above: Performed By: #### CREAT, CRP, ESR, CBC #### [place] [address] USAAutomated erythrocyte mean corpuscular volumeOrdered By: Lauro Brito on 02-33-0729OSG (RBC) [Entitic vol]90.8 bXBrbmqf08-059UupfitttmMercy Memorial HospitalComment on above:Performed By: #### CREAT, CRP, ESR, CBC #### [facility] [address] [place] [id number] USAAutomated erythrocytes count in urine sediment (number/area)Ordered By: Lauro Brito on 88-34-4130BJP Auto (Urine sed) [#/Area]0-1 [HPF]0-4FMercy Health Willard HospitalAutomated leukocytes count in urine sediment (number/area)Ordered By: Lauro Brito on 99-92-7737WYX Auto (Urine sed) [#/Area]None seen [HPF]0-4FMercy Health Willard HospitalAutomated monocyte %Ordered By: Lauro Brito on 24-59-4945Vzougzdii/100 WBC (Bld)7.6 % Normal.[facility] Memorial HospitalComment on above:Performed By: #### CREAT, CRP, ESR, CBC #### [place] [id number] USAAutomated neutrophil %Ordered By: Lauro Brito on 95-21-0601Cbxfrslxkec/100 WBC (Bld)60.6 %Normal.[facility] Memorial HospitalComment on above:Performed By: #### CREAT, CRP, ESR, CBC #### [place] [address] USAAutomated urine color determinationOrdered By: Lauro Brito on 98-06-2701Embax (U)YellowNormalYellowMercy Memorial HospitalComhealthsource saginaw on above:Order Comment: Name Collection Type:: Clean-Voided MidstreamPerformed By: #### CH50, C4, C3 #### [facility] , #### ADDONUAPLUS #### [place] [id number] USABilirubin Test strip Ql (U)Ordered By: Lauro Brito on 46-51-9975Cxbcdnfsx Ql (U)NegativeNegativeMercy Memorial HospitalBlood erythrocytes automated count (number/volume)Ordered By: Lauro Brito on 66-51-0419MOG (Bld) [#/Vol]4.86 10*6/uLNormal3.60-5.00Mer[facility] Memorial HospitalComment on above:Performed By: #### CREAT, CRP, ESR, CBC #### [facility] [address] [place] [address] USABlood hemoglobin measurement (mass/volume)Ordered By: Lauro Brito on 69-04-9270Eggvajqhgz (Bld) [Mass/Vol]14.4 g/rRPqrkwq81.8-15.4 [facility] HospitalComment on above:Performed By: #### CREAT, CRP, ESR, CBC #### [facility] [address] [place] [address] USABlood leukocytes automated count (number/volume)Ordered By: Lauro Brito on 69-83-7557FWR (Bld) [#/Vol]8.0 10*3/uLNormal4.5-11.0 [facility] HospitalComment on above:Performed By: #### CREAT, CRP, ESR, CBC #### [facility] [address] [place] [address] USABlood neutrophil count by automated method (number/volume) Ordered By: Lauro Brito on 57-51-6654Efiodoowosd (Bld) [#/Vol]4.9 10*3/uL Normal1.8-7.7FMercy Health Willard HospitalComment on above:Performed By: #### CREAT, CRP, ESR, CBC #### [facility] [facility] [address] [place] [address] USAC reactive protein [Mass/volume] in Serum or PlasmaOrdered By: Lauro Brito on 29-24-1921SNX [Mass/Vol]0.9 mg/dL0.0-1.0[facility] HospitalC-Reactive Proteinon 19-55-3519W-Reactive Protein0.9 mg/dLNormal0.0-1.0[facility] Memorial HospitalComment on above:Result Comment: PERFORMED BY: [place] [address] PATHOLOGIST [employer] SUMMER ALMEIDA M.D.Performed By: #### CREAT, CRP, ESR, CBC #### [facility] [address] [place] [address] USAComplement C3on 19-61-5162Zefuyvfagu C3124 mg/dLNormal 82-167Mer[facility] Memorial HospitalComment on above:Result Comment: Performed at: - [facility] [id number] Grain Scooper: Antwan Ramirez PhD, Phone: [phone] By: #### CH50, C4, C3 #### [facility] , #### ADDONUAPLUS #### [facility] [address] [place] [address] USAComplement C4on 55-94-0495Cojomhtjoy C429 mg/eTLinjqf56-98 [facility] HospitalComment on above:Performed By: #### CH50, C4, C3 #### [facility] , #### ADDONUAPLUS #### [facility] [address] [place] [address] USAComplement Total (CH50)on 15-21-4973Dzygzndijh Total (CH50)>60Normal>41Mer[facility] Memorial HospitalComment on above:Result Comment: Age Male Female 1 - 30 days Not Estab. Not Estab. 31 days - 6 months >32 >20 7 months - 17 years >39 >39 >17 years >41 >41 NOTE: The adult ( >17 years ) reference interval range is used to flag abnormals on this report. If the patient is 17 years old or younger, use the table above to determine out of range values. Performed at: - [facility] [id number] Grain Scooper: Antwan Ramirez PhD, Phone: [phone] PERFORMED BY: [place] [address] PATHOLOGIST [employer] SUMMER ALMEIDA M.D.Performed By: #### CH50, C4, C3 #### [facility] , #### ADDONUAPLUS #### [place] [address] USAComplete Blood Count Auto Diffon 44-76-1411Swfm Corpuscular HGB Conc32.6 g/iDVmdftu76.0-35.0[facility] Comment on above:Performed By: #### CREAT, CRP, ESR, CBC #### [place] [address] USAComplete Blood Count Auto DiffOrdered By: Lauro Brito on 59-83-8619Pwyttjbrh RBC/100 WBC (Bld) [Ratio]0.1 %Normal0-0.5FMercy Health Willard HospitalComment on above:Performed By: #### CREAT, CRP, ESR, CBC #### [place] [address] USACreatinineon 19-02-7154Rnaltjcay GFR ( Justine> 60 [facility] CampusComment on above:Result Comment: GFR estimated reference range: According to KDOQI guidelines, <60 ml/min/1.73m2 is sufficient to diagnose a patient with chronic kidney disease.Performed By: #### CREAT, CRP, ESR, CBC #### [place] [address] USAEstimated GFR (Non- Am> 60NormalMercy Memorial HospitalComment on above:Performed By: #### CREAT, CRP, ESR, CBC #### [place] [address] USADipstick and Microscopicon 66-57-8940Cxqxijfjdj (U)Clear Malad CityCleTriHealth Good Samaritan HospitalComment on above:Order Comment: Name Collection Type:: Clean-Voided MidstreamPerformed By: #### CH50, C4, C3 #### [facility] , #### ADDONUAPLUS #### [place] [address] USABacteria,UrineNone SeenNormalNone SeenMercy Memorial HospitalComment on above:Order Comment: Name Collection Type:: Clean- Voided MidstreamPerformed By: #### CH50, C4, C3 #### [facility] , #### ADDONUAPLUS #### [place] [address] USABilirubin,UrineNegativeNormalNegativeMercy Memorial HospitalComment on above:Order Comment: Name Collection Type:: Clean- Voided MidstreamPerformed By: #### CH50, C4, C3 #### [facility] , #### ADDONUAPLUS #### [place] [address] USAGlucose Ql (U)NormalNormalNormMercy Health St. Elizabeth Boardman HospitalComment on above:Order Comment: Name Collection Type:: Clean-Voided MidstreamPerformed By: #### CH50, C4, C3 #### [facility] , #### ADDONUAPLUS #### [place] [address] USAHyaline Casts,Rmzho3-7Qanywd5-3WlndhdhdmMercy Memorial HospitalComment on above:Order Comment: Name Collection Type:: Clean-Voided MidstreamResult Comment: PERFORMED BY: [place] [address] PATHOLOGIST [employer] SUMMER ALMEIDA M.D.Performed By: #### CH50, C4, C3 #### [facility] , #### ADDONUAPLUS #### [place] [address] USAKetones Ql (U)NegativeNormalNegSycamore Medical CenterComment on above:Order Comment: Name Collection Type:: Clean- Voided MidstreamPerformed By: #### CH50, C4, C3 #### [facility] , #### ADDONUAPLUS #### [place] [address] USALeukocyte esterase Test strip Ql (U)NegativeNormalNegative [facility] HospitalComment on above:Order Comment: Name Collection Type:: Clean-Voided MidstreamPerformed By: #### CH50, C4, C3 #### [facility] , #### ADDONUAPLUS #### [place] [address] USANitrite,UrineNegativeNormalNegativeMercy Memorial HospitalComment on above:Order Comment: Name Collection Type:: Clean- Voided MidstreamPerformed By: #### CH50, C4, C3 #### [facility] , #### ADDONUAPLUS #### [place] [address] USAOccult Blood,UrineNegativeNormalNegativeMercy Memorial HospitalComment on above:Order Comment: Name Collection Type:: Clean- Voided MidstreamPerformed By: #### CH50, C4, C3 #### [facility] , #### ADDONUAPLUS #### [place] [address] USAProtein,UrineNegativeNormalNegativeMercy Memorial HospitalComhealthsource saginaw on above:Order Comment: Name Collection Type:: Clean- Voided MidstreamPerformed By: #### CH50, C4, C3 #### [facility] , #### ADDONUAPLUS #### [place] [address] USARBC LM.HPF (Urine sed) [#/Area]0 /[HPF]Normal0-4FMercy Health Willard HospitalComhealthsource saginaw on above:Order Comment: Name Collection Type:: Clean-Voided MidstreamPerformed By: #### CH50, C4, C3 #### [facility] , #### ADDONUAPLUS #### [place] [address] USASpecificy Chester,Urine1.897Qaupoa5.001-1.030[facility] Memorial HospitalComment on above:Order Comment: Name Collection Type:: Clean-Voided MidstreamPerformed By: #### CH50, C4, C3 #### [facility] , #### ADDONUAPLUS #### [facility] [address] [place] [address] USASquamous Epithelial Cell,Iktcw1-4Spdwbo6-1PqqtgpiroMercy Health Willard HospitalComment on above:Order Comment: Name Collection Type:: Clean-Voided MidstreamPerformed By: #### CH50, C4, C3 #### [facility] , #### ADDONUAPLUS #### [place] [address] USAUrobilinogen,UrineNormalNormalNormalMercy Memorial HospitalComment on above:Order Comment: Name Collection Type:: Clean- Voided MidstreamPerformed By: #### CH50, C4, C3 #### [facility] , #### ADDONUAPLUS #### [facility] [address] [place] [address] USAWBC,UrineNone SeenNormal0-4FMercy Health Willard HospitalComment on above:Order Comment: Name Collection Type:: Clean-Voided MidstreamPerformed By: #### CH50, C4, C3 #### [facility] , #### ADDONUAPLUS #### [place] [address] USAErythrocyte Sedimentation Rateon 46-53-2918ZTJ (Bld) [Velocity]12 mm/hNormal0-29Mer[facility] HospitalComment on above: Result Comment: PERFORMED BY: [place] [address] PATHOLOGIST [employer] SUMMER ALMEIDA M.D.Performed By: #### CREAT, CRP, ESR, CBC #### [address] StreetErythrocyte sedimentation rate by Photometric method Ordered By: Lauro Brito on 33-94-7906RYH Photometric method (Bld) [Velocity] 12 mm/hr0-29Mer[facility] Memorial HospitalEstimated glomerular filtration rate (GFR) non- AmericanOrdered By: Lauro Brito on 55-40-4396NJU/1.73 sq M.predicted among non-blacks MDRD (S/P/Bld) [Vol rate/Area]> 60 mL/Min [facility] Memorial HospitalHLA B27 Disease Associationon 95-81-0959FOS B27 Disease AssociationNegativeNormal.Mer[facility] Memorial HospitalComment on above:Result Comment: HLA-B*27 Negative B27 allele interpretation for all loci based on IMGT/HLA database version 3.44 This test was developed and its performance characteristics determined by [facility]. It has not been cleared or approved by the Food and Drug Administration. [facility] CLIA ID Number [id number] This test was performed using PCR (Polymerase Chain Reaction)/SSOP (Sequence Specific Oligonucleotide Probes) technique. SBT (Sequence Based Typing) and/or SSP (Sequence Specific Primers) may be used as supplemental methods when necessary. Please contact [facility] Customer Service at if you have any questions. Director of [facility] Laboratory Dr Konrad Gutiérrez, PhD Performed at: [address] [place] [id number] Grain Scooper: Konrad Gutiérrez PhD, Phone: [phone] PERFORMED BY: [place] [address] PATHOLOGIST [employer]ER SUMMER ALMEIDA M.D.Performed By: #### [id number] #### [facility] ,Hematocrit [Volume Fraction] of Blood by Automated countOrdered By: Lauro Brito on 67-96-8652Uxlihniqxy (Bld) [Volume fraction]44.1 %Varvwb93.0-46.4 [facility] HospitalComment on above:Performed By: #### CREAT, CRP, ESR, CBC #### [facility] [address] [id number] USAKetones Auto test strip (U) [Mass/Vol]Ordered By: Lauro Brito on 39-47-3766Vavfbfb (U) [Mass/Vol]NegativeNegativeMercy Memorial HospitalLaboratory - UrinalysisOrdered By: Lauro Brito on 02-21-2022 Hyaline casts LM Ql (Urine sed)0-8 [LPF]0-8Mer[facility] Memorial HospitalMCHC Auto (RBC) [Mass/Vol]Ordered By: Lauro Brito on 04-78-4336ESWN (RBC) [Mass/Vol]32.6 g/dL32.0-35.0Mer[facility] Memorial HospitalNitrite Test strip Ql (U)Ordered By: Lauro Brito on 92-32-4493Ovzgifi Ql (U)NegativeNegFisher-Titus Medical CenterNo Panel InformationOrdered By: Lauro Brito on 73-37-4529Fbrxkfupy GFR ()> 60 mL/MinMercy Memorial HospitalComment on above:GFR estimated reference range: According to KDOQI guidelines, <60 ml/min/1.73m2 is sufficient todiagnose a patient with chronic kidney disease.Pharmacy Creatinine Clearance (ChemN/[facility] HospitalProtein Auto test strip (U) [Mass/Vol]Ordered By: Lauro Brito on 78-78-9368Hnznopc (U) [Mass/Vol]NegativeNegOhioHealth Shelby Hospitalerum or plasma creatinine measurement with calculation of estimated glomerular filtrOrdered By: Lauro Brito on 76-72-5950Kxvxbgrzri [Mass/Vol] 0.86 mg/dLNormal0.44-1.03[facility] HospitalComment on above: Performed By: #### CREAT, CRP, ESR, CBC #### [facility] [address] [place] [address] USASpecific gravity Auto test strip (U) [Rel density]Ordered By: Lauro Brito on 06-03-4488Pdxofhpz gravity (U) [Rel density]1.020 1.001-1.030Southview Medical Centerquamous epithelial cells detection in urine sediment by light microscopyOrdered By: Lauro Brito on 02-21-2022 Epithelial cells.squamous LM Ql (Urine sed)0-1 [HPF]0-2FMercy Health Willard HospitalUrine bacteria detection by automated methodOrdered By: Lauro Brito on 54-15-6867Cgtskplo Auto Ql (U)None seenNone SeenMercy Memorial HospitalUrine clarity by refractometry automatedOrdered By: Lauro Brito on 50-81-8316Xhwnzma Refractometry automated (U)ClearCleTriHealth Good Samaritan HospitalUrine glucose measurement by automated test strip (mass/volume) Ordered By: Lauro Brito on 74-13-3614Pqsfnmx Auto test strip (U) [Mass/Vol] Normal mg/dLFirelands Regional Medical Center South CampusUrine hemoglobin detection by automated test stripOrdered By: Lauro Brito on 92-84-8942Yztvzakopm Auto test strip Ql (U)NegativeNegSycamore Medical CenterUrine leukocyte esterase detection by automated test stripOrdered By: Lauro Brito on 60-58-0978Iemwsrooi esterase Auto test strip Ql (U)NegativeNegSycamore Medical CenterUrine pH measurement by automated test stripOrdered By: Lauro Brito on 36-42-8899gL (U)6.5 [pH]Normal5.0-9.0[facility] HospitalComment on above:Order Comment: Name Collection Type:: Clean- Voided MidstreamPerformed By: #### CH50, C4, C3 #### [facility] , #### ADDONUAPLUS #### [facility] [address] [place] [address] USAUrobilinogen Auto test strip (U) [Mass/Vol]Ordered By: Lauro Brito on 52-12-9448Bkezrhmmirom (U) [Mass/Vol]Normal mg/dLTuscarawas HospitalANA by IFAon 93-03-0569Qdzloomkvmx Antibodies, IFAPositiveAshtabula General HospitalComment on above:Result Comment: Negative <1:80 Borderline 1:80 Positive >1:80Performed By: #### ANAIFA #### [facility] [address] [address] [address] Claire Nova [facility] NorthComment on above: Performed By: #### ANAIFA #### [facility] [address] [address] [address] Claire Iglesais PatternNoChildren's Hospital of ColumbusComment on above: Performed By: #### ANAIFA #### [facility] [address] [address] [address] Claire PooleHomogeneous Pattern1:160Critically highUniversity Hospitals Parma Medical Center Comment on above:Result Comment: ICAP nomenclature: AC-1Performed By: #### ANAIFA #### [facility] [address] [address] [address] Claire Patel PatternNoChildren's Hospital of ColumbusComment on above: Performed By: #### ANAIFA #### [facility] [address] [address] [address] Claire PooleNote:CommentSt. Anthony's Hospitalment on above:Result Comment: For more information about Hep-2 cell patterns use ANApatterns.org, the official website for the International Consensus on Antinuclear Antibody (ALBERTO) Patterns (ICAP). A positive ALBERTO result may occur in healthy individuals (low titer) or be associated with a variety of diseases. See interpretation chart which is not all inclusive: . Pattern Antigen Detected Suggested Disease Association Homogeneous DNA(ds,ss), SLE - High titers Nucleosomes, Histones Drug-induced SLE Speckled Sm, [employer], SCL-70, SLE,MCTD,PSS (diffuse form), SS-A/SS-B Sjogrens Nucleolar SCL-70, PM- 1/SCL High titers Scleroderma, PM/DM Centromere Centromere PSS (limited form)w/Crest syndrome variable Nuclear Dot Sp100,c23-yriogl Primary Biliary Cirrhosis Nuclear GP210, Primary Biliary Cirrhosis Membrane oscar A,B,C Performed By: #### ALBERTOIFA #### [facility] [address] [place] [address] Dr. Claire Irwin Dot PatternNoWyandot Memorial Hospital on above: Performed By: #### ALBERTOIFA #### [facility] [address] [place] [address] Dr. Claire Irwin Membrane PatternNoWyandot Memorial Hospital on above:Performed By: #### ALBERTOIFA #### [facility] [address] [place] [address] Dr. Claire Leeolar [facility] NorthComment on above: Performed By: #### ANAIFA #### [facility] [address] [address] [address] Claire Salmon [facility] NorthComment on above:Performed By: #### ANAIFA #### [facility] [address] [address] [address] Claire Gomezkled [facility] NorthComment on above: Performed By: #### ANAIFA #### [facility] [address] [address] [address] Claire PooleSptriple Apparatus [facility] NorthComment on above:Performed By: #### ANAIFA #### [facility] [address] [place] [address] Dr. Claire PooleEUMATOID FACTORon 61-08-6207MZ Latex Turbid.<10.0Normal<14.0The Access Hospital Daytonment on above:Performed By: #### RF #### [facility] [address] [place] [address] Dr. Claire Mullins AUTO DIFFon 05-34-7872RBBA #0.0 103/ulNormal0.0-0.1The Access Hospital Daytonment on above:Performed By: #### LIPID, LIVER, TSH, BMP #### [facility] [address] [address] [address] Claire PooleBasophils/100 WBC (Bld)0.4 %Normal0.2-2.0The [facility] Comment on above:Performed By: #### LIPID, LIVER, TSH, BMP #### [facility] [address] [place] [address] Dr. Claire Flores #0.2 103/ulNormal0.0-0.7The [facility] on above: Performed By: #### LIPID, LIVER, TSH, BMP #### [facility] [address] [place] [address] Dr. Claire Hunterosinophils/100 WBC (Bld)3.5 %Normal0.9-7.0[facility] Comment on above:Performed By: #### LIPID, LIVER, TSH, BMP #### [facility] [address] [address] [address] Claire Hunterrythrocyte distribution width (RBC) [Ratio]13.2 %Htoxxh27.0-15.0 The [facility] HospitalComment on above:Performed By: #### LIPID, LIVER, TSH, BMP #### [facility] [address] [address] [address] Claire PooleHematocrit (Bld) [Volume fraction]41.3 %Rlpukq80.0-48.0The [facility] HospitalComment on above:Performed By: #### LIPID, LIVER, TSH, BMP #### [facility] [address] [place] [address] Dr. Claire PooleHemoglobin (Bld) [Mass/Vol]13.6 g/xNJsgjrn06.0-16.0The [facility] HospitalComment on above:Performed By: #### LIPID, LIVER, TSH, BMP #### [facility] [address] [place] [address] Dr. Claire Clark #0.04 10e3/ulCritically high0.00-0.03The [facility] Comment on above:Performed By: #### LIPID, LIVER, TSH, BMP #### [facility] [address] [address] [address] Claire Clark %0.8 %Critically high0.0-0.5The [facility] HospitalComment on above:Performed By: #### LIPID, LIVER, TSH, BMP #### [facility] [address] [place] [address] Dr. Claire Corey #1.9 103/ulNormal1.2-3.8The [facility] HospitalComment on above:Performed By: #### LIPID, LIVER, TSH, BMP #### [facility] [address] [address] [address] Claire Valientehocytes/100 WBC (Bld)37.3 %Qbxgsv84.5-60.0The [facility] HospitalComment on above:Performed By: #### LIPID, LIVER, TSH, BMP #### [facility] [address] [place] [address] Dr. Claire Caballero DIFF REQNONormalThe [facility] HospitalComment on above: Performed By: #### LIPID, LIVER, TSH, BMP #### [facility] [address] [place] [address] Dr. Claire Valencia (RBC) [Entitic mass]30.1 uzZalfhi70.7-34.0The [facility] HospitalComment on above:Performed By: #### LIPID, LIVER, TSH, BMP #### [facility] [address] [place] [address] Dr. Claire Valencia (RBC) [Mass/Vol]32.9 g/iXEsukzl79.9-35.2The [facility] HospitalComment on above:Performed By: #### LIPID, LIVER, TSH, BMP #### [facility] [address] [place] [address] Dr. Claire Valencia (RBC) [Entitic vol]91.4 cMNzhtjc96.0-99.0The [facility] HospitalComment on above:Performed By: #### LIPID, LIVER, TSH, BMP #### [facility] [address] [place] [address] Dr. Claire Crisostomo #0.4 103/ulNormal0.3-0.8The [facility] HospitalComment on above:Performed By: #### LIPID, LIVER, TSH, BMP #### [facility] [address] [place] [address] Dr. Claire Popocytes/100 WBC (Bld)6.9 %Normal1.7-12.0The [facility] Comment on above:Performed By: #### LIPID, LIVER, TSH, BMP #### [facility] [address] [place] [address] Dr. Claire Grullon #2.7 103/ulNormal1.4-6.5The [facility] HospitalComment on above:Performed By: #### LIPID, LIVER, TSH, BMP #### [facility] [address] [place] [address] Dr. Claire Kayeutrophils/100 WBC (Bld)51.1 %Cecgms23.0-75.0The [facility] on above:Performed By: #### LIPID, LIVER, TSH, BMP #### [facility] [address] [place] [address] Dr. Claire PoolePlatelet mean volume (Bld) [Entitic vol]11.6 fLNormal9.5-13.5The [facility] HospitalComhealthsource sag[place]aw on above:Performed By: #### LIPID, LIVER, TSH, BMP #### [facility] [address] [place] [address] Dr. Claire PoolePLT187 103/ogCyetoh574-766Yen [facility] on above: Performed By: #### LIPID, LIVER, TSH, BMP #### [facility] [address] [place] [address] Dr. Claire PooleRBC4.52 106/ulNormal4.20-5.40The [facility] on above:Performed By: #### LIPID, LIVER, TSH, BMP #### [facility] [address] [place] [address] Dr. Claire PooleWBC5.2 103/ulNormal4.0-11.0The [facility] on above: Performed By: #### LIPID, LIVER, TSH, BMP #### [facility] [address] [place] [address] Dr. Claire PooleLIPID PROFILEon 70-75-6868KRRR-HDL RATIO [facility] HospitalComhealthsource [place] on above:Result Comment: 3.3 - 4.4 LOW RISK 4.4 - 7.1 AVERAGE RISK 7.1 - 11.0 MODERATE RISK >11.0 HIGH RISKPerformed By: #### LIPID, LIVER, TSH, BMP #### [facility] [address] [place] [address] Dr. Claire PooleCholesterol [Mass/Vol]210 mg/dLCritically high<=200The [facility] on above:Performed By: #### LIPID, LIVER, TSH, BMP #### [facility] [address] [address] [address] Claire Thomasesterol in HDL [Mass/Vol]50 mg/hWIntuez14-42Puu [facility] on above:Performed By: #### LIPID, LIVER, TSH, BMP #### [facility] [address] [place] [address] Dr. Claire Thomasesterol in LDL [Mass/Vol]129.8 mg/dLNoChildren's Hospital of ColumbusComhealthsource sag[place] on above:Performed By: #### LIPID, LIVER, TSH, BMP #### [facility] [address] [place] [address] Dr. Claire Ghotra.total/Cholesterol in HDL [Mass ratio]4.2 {ratio} NormalThe [facility] on above:Performed By: #### LIPID, LIVER, TSH, BMP #### [facility] [address] [place] [address] Dr. Claire Lamb NORMAL> or = 60 mg/dl - LOW CARDIOVASCULAR RISK <40 mg/dl - HIGH CARDIOVASCULAR RISKProMedica Flower Hospital on above:Performed By: #### LIPID, LIVER, TSH, BMP #### [facility] [address] [place] [address] Dr. Claire Hagan CALC NORMALSEE BELOWNoChildren's Hospital of ColumbusComhealthsource [place] on above:Result Comment: <100 mg/dl OPTIMAL 100 - 129 mg/dl NEAR OR ABOVE OPTIMAL 130 - 159 mg/dl BORDERLINE HIGH 160 - 189 mg/dl HIGH >190 mg/dl VERY HIGH Performed By: #### LIPID, LIVER, TSH, BMP #### [facility] [address] [place] [address] Dr. Claire PooleTriglyceride [Mass/Vol]151 mg/dLCritically high<=150The [facility] on above:Performed By: #### LIPID, LIVER, TSH, BMP #### [facility] [address] [place] [address] Dr. Yilan ChangVLDL CALC30.2 mg/dLNormalThe [facility] HospitalComment on above: Performed By: #### LIPID, LIVER, TSH, BMP #### [facility] [address] [address] [address] Claire Almanza PROFILEon 01-18-6921Echnrhn [Mass/Vol]3.6 g/dLNormal3.4-5.0 The [facility] HospitalComment on above:Performed By: #### LIPID, LIVER, TSH, BMP #### [facility] [address] [place] [address] Dr. Claire PooleAlbumin/Globulin [Mass ratio]1.2 {ratio}NormalThe [facility] HospitalComment on above:Performed By: #### LIPID, LIVER, TSH, BMP #### [facility] [address] [place] [address] Dr. Claire Cuba [Catalytic activity/Vol]91 U/AAmznxz31-545Lkp [facility] HospitalComment on above:Performed By: #### LIPID, LIVER, TSH, BMP #### [facility] [address] [place] [address] Dr. Claire Bess [Catalytic activity/Vol]71 U/LCritically bymr25-03Ovm [facility] HospitalComment on above:Performed By: #### LIPID, LIVER, TSH, BMP #### [facility] [address] [place] [address] Dr. Claire Hein [Catalytic activity/Vol]26 U/VDispxp77-11Lbe [facility] Hospital Daytonment on above:Performed By: #### LIPID, LIVER, TSH, BMP #### [facility] [address] [place] [address] Dr. Claire Lord, CONJUGATED0.1 mg/dLNormal0.0-0.2The [facility] Comment on above:Performed By: #### LIPID, LIVER, TSH, BMP #### [facility] [address] [place] [address] Dr. Claire Mendezirubin [Mass/Vol]0.3 mg/dLNormal0.2-1.0[facility] Comment on above:Performed By: #### LIPID, LIVER, TSH, BMP #### [facility] [address] [address] [address] Claire PooleGlobulin (S) [Mass/Vol]3.1 g/dLNormalThe [facility] HospitalComment on above:Performed By: #### LIPID, LIVER, TSH, BMP #### [facility] [address] [address] [address] Claire PooleProtein [Mass/Vol]6.7 g/dLNormal6.4-8.2[facility] Comment on above:Performed By: #### LIPID, LIVER, TSH, BMP #### [facility] [address] [address] [address] Claire PoolePROF CHEM 8 (BAS METB)on [id number] gap [Moles/Vol]12.2 mmol/LNormalUniversity Hospitals Parma Medical CenterComment on above:Performed By: #### LIPID, LIVER, TSH, BMP #### [facility] [address] [place] [address] Dr. Claire PooleCalcium [Mass/Vol]8.7 mg/dLNormal8.5-10.1[facility] Comment on above:Performed By: #### LIPID, LIVER, TSH, BMP #### [facility] [address] [address] [address] Claire PooleChloride [Moles/Vol]105 mmol/HFkxlct39-381KymUniversity Hospitals Parma Medical Center Comment on above:Performed By: #### LIPID, LIVER, TSH, BMP #### [facility] [address] [place] [address] Dr. Claire PooleCO2 [Moles/Vol]27.1 mmol/LHcbrcm58.0-32.0[facility] Comment on above:Performed By: #### LIPID, LIVER, TSH, BMP #### [facility] [address] [place] [address] Dr. Claire PooleCreatinine [Mass/Vol]0.71 mg/dLNormal0.55-1.02[facility] CenterComment on above:Performed By: #### LIPID, LIVER, TSH, BMP #### [facility] [address] [address] [address] Claire HunterGFR-AF ECUADOREAN>60Normal>=60The [place] [facility] HospitalComment on above:Performed By: #### LIPID, LIVER, TSH, BMP #### [facility] [address] [address] [address] Claire HunterGFR-NON AF ECUADOREAN>60Normal>=60The [place] [facility] HospitalComment on above:Performed By: #### LIPID, LIVER, TSH, BMP #### [facility] [address] [address] [address] Claire PooleGlucose [Mass/Vol]101 mg/fBUnrwzc39-784IecUniversity Hospitals Parma Medical Center Comment on above:Performed By: #### LIPID, LIVER, TSH, BMP #### [facility] [address] [place] [address] Dr. Claire PoolePotassium [Moles/Vol]4.3 mmol/LNormal3.5-5.1[facility] Comment on above:Performed By: #### LIPID, LIVER, TSH, BMP #### [facility] [address] [address] [address] Claire PooleSodium [Moles/Vol]140 mmol/VQpdtpt088-147Zih [facility] Comment on above:Performed By: #### LIPID, LIVER, TSH, BMP #### [facility] [address] [address] [address] Claire PooleUrea nitrogen [Mass/Vol]16.0 mg/dLNormal7.0-18.0The [place] [facility] HospitalComment on above:Performed By: #### LIPID, LIVER, TSH, BMP #### [facility] [address] [place] [address] Dr. Claire Marshall nitrogen/Creatinine [Mass ratio]22.5 mg/mgNormalThe [place] [facility] HospitalComment on above:Performed By: #### LIPID, LIVER, TSH, BMP #### [facility] [address] [place] [address] Dr. Yilan ChangSED RATE WESTERGRENon [id number] RATE8 mm/hrNormal<=30The [place] [facility] HospitalComment on above:Performed By: #### LIPID, LIVER, TSH, BMP #### [facility] [address], [place] [address] Dr. Claire Elder 41-08-1607FCY4.844 uIU/mLNormal0.358-3.740The [place] [facility] HospitalComment on above:Performed By: #### LIPID, LIVER, TSH, BMP #### [facility] [address], [place] [address] Dr. [facility] auto differentialon [id number] (Bld) [#/Vol]10*3/uL [facility]- [place], [place]Basophils/100 WBC (Bld)0 %0 - 2 %[facility], [place] Differential TypeNOT REPORTEDMckitrick Hospital- [place], KYEosinophils (Bld) [#/Vol] 10*3/[facility]- [place], KYEosinophils/100 WBC (Bld)0 %Low1 - 4 %[facility]- [place], KYErythrocyte distribution width (RBC) [Ratio]13.1 %11.8 - 14.4 %[facility]- [place], KYHematocrit (Bld) [Volume fraction]34.0 %Low36.3 - 47.1 %[facility]- [place], KYHemoglobin (Bld) [Mass/Vol]10.6 g/dLLow11.9 - 15.1 g/dLMckitrick Hospital- [place], KYImmature granulocytes (Bld) [#/Vol]1 %Ilhw4HwwidMckitrick Hospital- [place], [place] Immature granulocytes (Bld) [#/Vol]0.06 10*3/uLSelect [facility]- [place], [place] Interpretation and review of laboratory resultsAbnormalMckitrick Hospital- [place], [place] Lymphocytes (Bld) [#/Vol]1.21 10*3/[facility]- [place], KYLymphocytes/100 WBC (Bld)10 %Low24 - 43 %[facility]- [place], KYMCH (RBC) [Entitic mass]29.7 pg25.2 - 33.5 pgSelect [facility]ty [facility] [place], PATRICIAMCHC (RBC) [Mass/Vol]31.2 g/dL28.4 - 34.8 g/dLSelect [facility] Specialty [facility] [place], PATRICIAMCV (RBC) [Entitic vol]95.2 fL82.6 - 102.9 fLSelect Medical Specialty Hospital - [place], PATRICIA Monocytes (Bld) [#/Vol]1.11 10*3/uLSelect Medical Specialty Hospital - [place], PATRICIAMonocytes/100 WBC (Bld)9 %3 - 12 %[facility], PATRICIAPlatelet mean volume (Bld) [Entitic vol]10.8 fL8.1 - 13.5 fLSelect Medical Specialty Hospital - [place], PATRICIAPlatelets (Bld) [#/Vol]219 10*3/uLSelect [facility]ty [facility] [place], PATRICIAPlatelets (Bld) [#/Vol]NOT REPORTEDSelect [facility] [place], SDRBC (Bld) [#/Vol]3.57 10*6/uLLow3.95 - 5.11 m/uLSelect [facility] Specialty [facility] [place], SDRBC morphology finding Nom (Bld) NOT REPORTEDSelect Medical Specialty [facility] [place], PATRICIASegmented neutrophils/100 WBC (Bld)80 %High36 - 65 %[facility], PATRICIASegs Absolute9.62HighSelect Medical Specialty Hospital - [place], PATRICIAWBC (Bld) [#/Vol]0.0 10*3/uL0.0 per 100 WBCSelect Medical Specialty Hospital - [place], PATRICIAWBC (Bld) [#/Vol]12.0 10*3/uLHighSelect Medical Specialty Hospital [facility] [place], PATRICIAWBC MorphologyNOT REPORTEDSelect Medical Specialty [facility] [place], PATRICIA FLUORO FOR SURGICAL PROCEDURESon [id number] exam is complete. No Radiologist dictation. Please follow up with ordering provider.[facility] [place], PATRICIAXR HIP 2-3 VW W PELVIS LEFTon [id number] distribution width (RBC) [Ratio]Status post left total hip arthroplasty without evidence for immediate postoperative hardware complication.[facility] YoungstownHiro Mhpn Incoming Radiant Results From 1SDK/Stratoscale - 04/04/2020 3:49 PM EST EXAMINATION: ONE XRAY VIEW OF THE PELVIS AND TWO XRAY VIEWS LEFT HIP 04/04/2020 3:02 pm COMPARISON: 03/08/2020 HISTORY: ORDERING SYSTEM PROVIDED HISTORY: AP hip, AP pelvis, crosstable lateral hip. TECHNOLOGIST PROVIDED HISTORY: Post-op PACU please. AP hip, AP pelvis, crosstable lateral hip. FINDINGS: Status post left total hip arthroplasty. No evidence for immediate postoperative hardware complication. There is overlying subcutaneous air and soft tissue edema, postsurgical in nature. Ieph-rm-iycjokep osteoarthrosis of the right hip. IMPRESSION: Status post left total hip arthroplasty without evidence for immediate postoperative hardware complication. [facility] YoungstownPATRICIAEXAMINATION: ONE XRAY VIEW OF THE PELVIS AND TWO XRAY VIEWS LEFT HIP 04/04/2020 3:02 pm COMPARISON: 03/08/2020 HISTORY: ORDERING SYSTEM PROVIDED HISTORY: AP hip, AP pelvis, crosstable lateral hip. TECHNOLOGIST PROVIDED HISTORY: Post-op PACU please. AP hip, AP pelvis, crosstable lateral hip. FINDINGS: Status post left total hip arthroplasty. No evidence for immediate postoperative hardware complication. There is overlying subcutaneous air and soft tissue edema, postsurgical in nature. Eqin-dq-rtogbwdm osteoarthrosis of the right hip.[facility] YoungstownPATRICIACOVID-19on 04-01-2020 EMES-PdW-2Bmh DetectedNot DetectedSelect Medical Specialty Hospital - YoungstownPATRICIAComment on above: The specimen is NEGATIVE for SARS-CoV-2, the novel coronavirus associated with COVID-19. A negative result does not rule out COVID-19. This test has been authorized by the FDA under an Emergency Use Authorization (EUA) for use by authorized laboratories. WHObyYOU SARS-CoV-2 Reagents for [employer] are designed to detect the virus that causes COVID-19 in patients with signs and symptoms of infection who are suspected of COVID-19. An individual without symptoms of COVID-19 and who is not shedding SARS-CoV-2 virus would expect to have a negative (not detected) result in this assay. Fact sheet for Healthcare Providers: https://www.fda.gov/media/334159/download Fact sheet for Patients: https://www.fda.gov/media/177087/download METHODOLOGY: RT-PCR EPVJ-DaF-6Fkmtg Health- OHPATRICIAECIBON-PpO-2, RapidSelect Medical Specialty Hospital - YoungstownTony .NASOPHARYNGEAL SWABSelect Medical Specialty Hospital - YoungstownLISA 12 Leadon 50-34-7830Ufxrkq Cfcs35MJY [facility], PATRICIAP Dqez37lhrnkuwPdrpt Health- [place], SDP-R Qxgwpgeq147 [facility], SDQ-T Ihwzueip364 [facility], KYQRS Lgupqecb87 [facility], SDQTc Calculation (Bazett)423 msMUniversity Hospitals [facility], KYR [place]-52degrees [facility], KYT Avay88yggvrrqCymlt Health- [place], SDVentricular Ixff89RXF [facility], KYEdi, Mhpn Incoming Ekg Results From [facility] - 03/25/2020 10:00 AM EDT Sinus bradycardia Left anterior fascicular block Abnormal ECG When compared with ECG of 26-AUG-1996 14:53, Left anterior fascicular block is now PresentSelect Medical Specialty Hospital - [place], SDSinus bradycardia Left anterior fascicular block Abnormal ECG When compared with ECG of 45-AAW-314879:53, Left anterior fascicular block is now PresentSelect Medical Specialty Hospital - [place], SDMRSA DNA Probe, Nasalon 51-86-5791BLYE, DNA, NasalNEGATIVE: MRSA DNA not detected by nucleic acid amplification.NEGATIVE: MRSA DNA not detected by nucleic acid amplificatiWilliamstown, KYComment on above: Results should be used as an adjunct to nosocomial control efforts to identify patients needing enhanced precautions. The test is not intended to identify patients with staphylococcal infections. Results should not be used to guide or monitor treatment for MRSA infections. Specimen Description.NASAL SWABWilliamstown, KYCBCon [id number] distribution width (RBC) [Ratio]13.7 %11.8 - 14.4 %[place], [place] Hematocrit (Bld) [Volume fraction]41.9 %36.3 - 47.1 %[place], [place] Hemoglobin (Bld) [Mass/Vol]13.5 g/dL11.9 - 15.1 g/dLWilliamstown, KYMCH (RBC) [Entitic mass]30.3 pg25.2 - 33.5 pgWilliamstown, KYMCHC (RBC) [Mass/Vol]32.2 g/dL28.4 - 34.8 g/dLMercy Health- [place], KYMCV (RBC) [Entitic vol] 93.9 fL82.6 - 102.9 fLSelect Medical [facility] Clinic [facility], [facility]- [place], KYPlatelet mean volume (Bld) [Entitic vol]10.7 fL8.1 - 13.5 fLSelect Medical [facility], [facility]- [place], KYPlatelets (Bld) [#/Vol]247 10*3/uL [facility]- [place], KYRBC (Bld) [#/Vol]4.46 10*6/uL3.95 - 5.11 m/uLSelect [facility]- [place], KYWBC (Bld) [#/Vol]0.0 10*3/uL0.0 per 100 WBCSelect Medical Cleveland Clinic Rehabilitation [facility], [facility]- [place], KYWBC (Bld) [#/Vol]8.1 10*3/uLSelect Medical [facility]- [place], KYComprehensive Metabolic Panelon 03-23-2020 Albumin [Mass/Vol]4.7 g/dL3.5 - 5.2 g/dLSelect Medical [facility], [facility]- [place], KYAlbumin/Globulin [Mass ratio]1.7 {ratio}[facility]- [place], KYALP [Catalytic activity/Vol]106 U/L High35 - 104 U/LMtrumbull memorial hospital Health- [place], KYALT [Catalytic activity/Vol]34 U/LHigh5 - 33 U/LMtrumbull memorial hospital Health- [place], KYAnion gap [Moles/Vol]10 mmol/L9 - 17 mmol/LMtrumbull memorial hospital Health- [place], KYAST [Catalytic activity/Vol]22 U/L<32[facility]- [place], KYBilirubin Ql (U) 0.28 mg/dLLow0.3 - 1.2 mg/dLSelect [facility]- [place], KYBun/Cre RatioNOT REPORTEDMer Health- [place], KYCalcium [Mass/Vol]9.7 mg/dL8.6 - 10.4 mg/dLSelect [facility]- [place], [place] Chloride [Moles/Vol]100 mmol/L98 - 107 mmol/LMkettering memorial hospitaly Health- [place], KYCO2 [Moles/Vol] 26 mmol/L20 - 31 mmol/LMercy Health- [place], KYCreatinine [Mass/Vol]0.71 mg/dL0.5 - 0.9 mg/dLSelect [facility]- [place], KYGFR >60>60 mL/minSelect Medical Specialty Hospital - [place], KYGFR Non->60>60 mL/minSelect Medical Specialty Hospital - [place], KYGFR/1.73 sq M predicted among non-blacks MDRD (S/P/Bld) [Vol rate/Area]NOT REPORTEDSelect Medical Specialty Hospital - [place], KYGFR/1.73 sq M predicted among non-blacks MDRD (S/P/Bld) [Vol rate/Area][facility] [place], PATRICIAComment on above:Average GFR for 60-69 years old: 85 mL/min/1.73sq m Chronic Kidney Disease: <60 mL/min/1.73sq m Kidney failure: <15 mL/min/1.73sq m eGFR calculated using average adult body mass. Additional eGFR calculator available at: http://www.[employer]/multiple_crcl_2011.htm Glucose [Mass/Vol]97 mg/dL70 - 99 mg/dLSelect Medical Specialty Hospital - [place], SDInterpretation and review of laboratory resultsAbnormalSelect Medical Specialty Hospital - [place], SDPotassium [Moles/Vol]4.4 mmol/L3.7 - 5.3 mmol/LMUniversity [facility]als [facility], KYProtein [Mass/Vol]7.4 g/dL6.4 - 8.3 g/dLSelect Medical Specialty [facility] [place], SDSodium [Moles/Vol]136 mmol/L135 - 144 mmol/[facility], SDUrea nitrogen [Mass/Vol]21 mg/dL8 - 23 mg/dLSelect Medical Specialty Hospital - [place], [place] Hemoglobin A1Con 19-67-1004Incsaye [Mass/Vol]108 mg/dLSelect Medical Specialty Hospital - [place], [place] Comment on above:The ADA and AACC recommend providing the estimated average glucose result to permit better patient understanding of their HBA1c result. HbA1c (Bld) [Mass fraction]5.4 %4 - 6 %[facility], PATRICIAOtheron [id number] acute process.[facility] Hospital - YoungstownHiro Mhpn Incoming Radiant Results From 1SDK/Stratoscale - 03/23/2020 4:30 PM EDT EXAMINATION: TWO XRAY VIEWS OF THE CHEST 03/23/2020 4:18 pm COMPARISON: None. HISTORY: ORDERING SYSTEM PROVIDED HISTORY: Pre-op testing TECHNOLOGIST PROVIDED HISTORY: pre-op Reason for Exam: lt hip FINDINGS: The lungs are without acute focal process. There is no effusion or pneumothorax. The cardiomediastinal silhouette is without acute process. The osseous structures are without acute process. IMPRESSION: No acute process. [facility]- [place], KYEXAMINATION: TWO XRAY VIEWS OF THE CHEST 03/23/2020 4:18 pm COMPARISON: None. HISTORY: ORDERING SYSTEM PROVIDED HISTORY: Pre-op testing TECHNOLOGIST PROVIDED HISTORY: pre-op Reason for Exam: lt hip FINDINGS: The lungs are without acute focal process. There is no effusion or pneumothorax. The cardiomediastinal silhouette is without acute process. The osseous structures are without acute process.[facility]- [place], KYUrinalysison 52-37-6319Glmyxkhmm UrineNegativeNEGATIVEMercy Health- [place], KYColor, UAYELLOWYELLOWMercy Health- [place], KYGlucose, UrNegativeNEGATIVEMercy Health- [place], KYKetones Ql (U)NegativeNEGATIVE [facility]- [place], KYLeukocyte esterase Test strip Ql (U)NegativeNEGATIVEMercy Health- [place], KYNitrite, UrineNegativeNEGATIVEMercy Health- [place], KYpH, UA6.0[facility]- [place], KYProtein (U) [Mass/Vol]NegativeNEGATIVEMercy Health- [place], KYSpecific [place], UA1.021[facility]- [place], KYTurbidity UACLEARCLEARMercy Health- [place], [place] Urinalysis CommentsMicroscopic exam not performed based on chemical results unless requested in original order.[facility]- [place], KYUrine HgbNegativeNEGATIVE [facility]- [place], KYUrobilinogen, UrineNormalNormalMercy Health- [place], [place] Vital Signs Date TimeVital SignValuePerforming XdktefoptRoyinazs47-10-9149 11:05-0400Body ghexbg565.99 cmLibrado Solorzano MD Work Phone: [facility]10-09-2025 11:05-0400 Body mass index (BMI) [Ratio]31.7 kg/m2Librado Solorzano MD Work Phone: [facility]10-09-2025 11:05-0400 Body vzkwacbyohk28.6 [degF]Librado Solorzano MD Work Phone: [phone]10-09-2025 11:05-0400 Body .16 kgLibrado Solorzano MD Work Phone: [phone]10-09-2025 11:05-0400 Diastolic blood msbqyqxd07 mm[Hg]Librado Solorzano MD Work Phone: [phone])[address]10-09-2025 11:05-0400 Heart rate82 /minLibrado Solorzano MD Work Phone: [phone])[address]10-09-2025 11:05-0400 Respiratory rate22 /minLibrado Solorzano MD Work Phone: [phone] [place], [place] [address]10-09-2025 11:05-0400 SaO2% (BldA) [Mass fraction]97 %Librado Solorzano MD Work Phone: [phone]10-09-2025 11:05-0400 Systolic blood eglsfswq141 mm[Hg]Librado Solorzano MD Work Phone: [phone]07-08-2025 10:34-0400 Body cmLibrado Solorzano MD Work Phone: [facility] CenterCntvajzihq44-53-1742 10:34-0400Body mass index (BMI) [Ratio]30.87 kg/m2Librado Solorzano MD Work Phone: [facility] CenterMjlolngxmp40-53-8865 10:34-0400Body temperature 97.11 [degF]Librado Solorzano MD Work Phone: [facility] CenterPpximpzkqf37-72-1984 10:34-0400Body ekaxov72.44 kgLibrado Solorzano MD Work Phone: [facility] CenterNpdighbnsz53-63-3791 10:34-0400Diastolic blood liphobtu71 mm[Hg]Librado Solorzano MD Work Phone: [facility] CenterWxzhjriyku66-47-3811 10:34-0400Heart rate87 /min Librado Solorzano MD Work Phone: [facility] CenterLbdobqeiqh24-67-3778 10:34-0400Respiratory rate20 /minLibrado Solorzano MD Work Phone: [facility] CenterXxgfehabqs19-14-8506 10:34-4122PvG2% (BldA) [Mass fraction]97 %Librado Solorzano MD Work Phone: [facility] CenterHlznjauviw94-88-2543 10:34-0400Systolic blood lesooaxr952 mm[Hg]Librado Solorzano MD Work Phone: [facility] CenterUuzyoseoqb27-76-9656 10:05-0400Body hkwjki599.7 cmLibrado Solorzano MD Work Phone: [facility] CenterJnbgzkhygo54-02-9883 10:05-0400Body mass index (BMI) [Ratio]32.08 kg/m2Librado Solorzano MD Work Phone: [facility] CenterNajlxhxyft96-98-3498 10:05-0400Body temperature 97.11 [degF]Librado Solorzano MD Work Phone: [facility] CenterWqnbtadccl84-01-1754 10:05-0400Body gtfkaf24.71 kgLibrado Solorzano MD Work Phone: [facility] CenterIzizipjgwv23-11-0428 10:05-0400Diastolic blood mm[Hg]Librado Solorzano MD Work Phone: [facility] CenterDfmrocjrhb56-04-8172 10:05-0400Heart rate86 /min Librado Solorzano MD Work Phone: [facility] CenterPuquakuzrd64-81-3617 10:05-0400Respiratory rate20 /minLibrado Solorzano MD Work Phone: [facility] CenterGjvemswujw73-65-7469 10:05-0520DqO1% (BldA) [Mass fraction]96 %Librado Solorzano MD Work Phone: [facility] CenterTfcptdznyb93-28-2128 10:05-0400Systolic blood plykpapm038 mm[Hg]Librado Solorzano MD Work Phone: [facility] CenterWchqdfzhog50-91-8631 09:57-0400Body wioakx732.7 cmLibrado Solorzano MD Work Phone: [facility] CenterKabonxebyy94-99-7564 09:57-0400Body mass index (BMI) [Ratio]31.63 kg/m2Librado Solorzano MD Work Phone: [facility] CenterDzqhggpitp59-33-8303 09:57-0400Body temperature 97.11 [degF]Librado Solorzano MD Work Phone: [facility] CenterXtynobnzzt47-14-0862 09:57-0400Body .35 kgLibrado Solorzano MD Work Phone: [facility] CenterOdxfbujcbf12-91-8897 09:57-0400Diastolic blood nufjzjgd89 mm[Hg]Librado Solorzano MD Work Phone: [facility] CenterCvtjtfljjk23-47-0244 09:57-0400Heart rate82 /min Librado Solorzano MD Work Phone: [facility] CenterIcixxgzvtz49-07-4074 09:57-0400Respiratory rate20 /minLibrado Solorzano MD Work Phone: [facility] CenterPmwynqdmhy30-14-9885 09:57-2918LdN6% (BldA) [Mass fraction]97 %Librado Solorzano MD Work Phone: [facility] CenterXgmafnclin63-65-9954 09:57-0400Systolic blood mm[Hg]Librado Solorzano MD Work Phone: [facility] CenterWsuaurteyz63-85-8029 18:00-0400Body temperature 97.5 [degF]Crystal Mcadams DO Work Phone: bon [facility]03-14-2023 18:00-0400Diastolic blood hzimrozy06 mm[Hg]Crystal Mcadams DO Work Phone: bon [facility]03-14-2023 18:00-0400Heart rate64 /minCrystal Mcadams DO Work Phone: bRICHA [facility]03-14-2023 18:00-0400 Respiratory rate14 /Jean Mcadams DO Work Phone: bRICHA [facility]03-14-2023 18:00-1135CtN2% (BldA) [Mass fraction]94 %Crystal Mcadams DO Work Phone: bRICHA [facility]03-14-2023 18:00-0400Systolic blood jzncygic792 mm[Hg]Crystal Mcadams DO Work Phone: VRICHA [facility]02-22-2023 15:00-0500Body dvxfud179 cmSta [facility]02-22-2023 15:00-0500Body mass index (BMI) [Ratio]32.66 kg/m2Sta [facility]02-22-2023 15:00-0500Body jicdoohtqnd10.59 [degF]Sta [facility]02-22-2023 15:00-0500Body doyymh00.88 kgSta [facility]02-22-2023 15:00-0500Diastolic blood mm[Hg]Sta [facility]02-22-2023 15:00-0500Heart rate74 /minSta [facility]02-22-2023 15:00-0500Respiratory rate16 /minSta [facility]02-22-2023 15:00-0255LcZ7% (BldA) [Mass fraction]99 % Sta [facility]02-22-2023 15:00-0500Systolic blood vfairimf846 mm[Hg][facility]11-04-2020 12:19-0500Body Wwmugqjqwlf00.8 [degF]Crystal McadamsSelect [facility] [place], DM29-29-9371 12:19-0500BP Vsrnjgsfi59 mm[Hg]Crystal BiSelect Medical Specialty [facility] [place], RC24-69-4704 12:19-0500BP Jhwdotem377 mm[Hg]Crystal BiSelect Medical Specialty [facility] [place], DR26-47-0210 12:19-0500Pulse (Heart Rate) 84 /minCrystal [facility], GL25-68-1670 12:19-0500Pulse Gwgfveyt15 % Crystal [facility], CB34-31-1988 12:19-0500Respiratory Rate16 /min Crystal McadamsSelect Medical Specialty [facility] [place], QB93-31-1385 11:15-0500BMI (Body Mass Index) 30.72 kg/j0Utzacll [facility], AE44-59-4601 11:15-0500Body weight 94.35 kgCrystal [facility], VW23-45-9088 11:15-3699Shsxyl876.3 cm Crystal [facility], JZ99-65-0481 14:50-0400BMI (Body Mass Index) 30.72 kg/m2[address], TC39-81-7076 14:50-0400Body Rxnlgckzbdy18.9 [degF][address], UE78-15-9396 14:50-0400Body jaifgk44.[address] [place] [address], ZZ62-36-3323 14:50-0400BP Ncarqvmad96 mm[Hg][address], LK17-25-1955 14:50-0400BP Cftrvkfa399 mm[Hg][address], KR77-49-4054 14:50-2342Sihmoq785.[address] [place] [address], CR73-88-0656 14:50-0400Pulse (Heart Rate)72 /minStvz [address] [place] [address], FI40-73-4888 14:50-0400Pulse Fnzkzidx31 %[address], ZJ81-48-1690 14:50-0400 Respiratory Rate18 /minStvz [address] [place] [address], [place] Encounters Encounter DateEncounter TypeCare ProviderFacilityStart: 03-10-2025 End: 77-76-1803rbepnpfqwiKonl Naderer MD Work Phone: [facility] Work Phone: Start: 03-10-2025 End: 00-21-8518Bgqplrq encounter procedureLibrado Solorzano MD-[facility] Work Phone: Start: 12-07-2024 End: 95-97-8306Ddofnm flowsMae oSlorzano MD Work Phone: [facility] FMStart: 12-07-2024 End: 48-57-2451Wlmigm Rebekah Solorzano MD Work Phone: [facility] FMStart: 12-07-2024 End: 50-18-2558Evpbfhq encounter procedureLibrado Solorzano MD Work Phone: [facility] HealthcareStart: 12-07-2024 End: 59-40-2654Sidoho follow up visit related to original Darlene Solorzano MD Work Phone: [facility] FMComment on above:Medicare annual wellness visit, subsequent (Primary Dx); Former smokerStart: 12-07-2024 End: 57-17-2688ylipguhhaoOYOP NADERERNot AvailableStart: 09-07-2024 End: 08-52-5077Rkhtfy Rebekah Solorzano MD Work Phone: noms CWM FMStart: 09-07-2024 End: 42-65-8864Ngsyki Rebekah Solorzano MD Work Phone: noms CWM FMStart: 09-07-2024 End: 31-52-6276Qoxqbm outpatient visit 25 minutesLibrado Solorzano MD Work Phone: [facility] CWM FMComment on above:Major depressive disorder, recurrent, moderate (CMS/HCC) (Primary Dx); Generalized anxiety disorder (CMS/HCC); Primary insomnia; Chronic rhinosinusitisStart: 09-07-2024 End: 46-24-9932rvzyddefcwIRMK NADERERNot AvailableStart: 03-29-2024 End: 61-51-1416GkfujsYcoz Naderer MD Work Phone: NOMS CWM FMComment on above:Generalized anxiety disorder (CMS/HCC)Start: 03-17-2024 End: 64-98-3387Rdlhkg Reji Solorzano MD Work Phone: [facility] CWM FMComment on above:Prediabetes (Primary Dx) Start: 03-09-2024 End: 85-04-3815Thwvzo flowsMae Solorzano MD Work Phone: [facility] C[facility] FMStart: 03-09-2024 End: 95-55-6944Vsazqq flowsMae Solorzano MD Work Phone: [facility] C[facility] FMStart: 03-09-2024 End: 88-90-1423Keniea outpatient visit 25 minutesLibrado Solorzano MD Work Phone: noms CWM FMComment on above:MDD (major depressive disorder), recurrent episode, mild (HCC) (CMS/HCC) (Primary Dx); Generalized anxiety disorder (CMS/HCC); Primary insomnia; Chronic rhinosinusitis; Dyslipidemia (CMS/HCC); Hypothyroidism, adult (CMS/HCC); Encounter for long-term current use of medication; Breast cancer screening by mammogram; Heart palpitations; Right foot painStart: 03-09-2024 End: 59-77-9262ijfcqjdhmdHYBY NADERERNot AvailableStart: 08-23-2022 End: 99-78-2418mgpkhdtafkJV DOCTOR MISCFacility:J9Akqaq: 08-13-2022 End: 61-63-2420jncfyzbtunMIANANDBrant CordobaMerged with [facility] HospitalStart: 08-13-2022 End: 39-14-1536Ercrvnrsuy hospital visit by physicianCrystal Mcadams DO Work Phone: staz ORComment on above:Post-op pain (Primary Dx) Start: 07-24-2022 End: 51-13-7072ilpwszwxfkQKNJAshtabula County Medical Centertart: 07-24-2022 End: 36-34-0680clyndgkojeRHXOSanta Rosa Memorial Hospital HospitalStart: 17-42-6490Ioukueccd for other preprocedural examinationCRYSTAL Conde [facility] First Hilltart: 07-24-2022 End: 40-07-8902Gzktrhtdoj hospital visit by Rivka Additional [facility] RadiologyComment on above:ArrivedStart: 07-24-2022 End: 78-04-1612Ekkgpfr encounter statusSta 2STAZ PRE-ADMIT TESTINGStart: 07-24-2022 End: 18-44-3792Zpxgletajd hospital visit by Rivka Bishop 2STAZ PRE-ADMIT TESTINGComment on above:Pre-op testingStart: 07-04-2022 End: 00-98-6361oqkhylgkrtTQGG [facility] Start: 07-01-2022 End: 28-33-5064ykceisotutKSI EUSEBIO AICHHOLZFacility:G1Brqnh: 04-10-2022 End: 75-41-4426goxunyyiueDJZ EUSEBIO AICHHOLZFacility:V9Szafo: 03-26-2022 End: 02-16-0762lechqadqniJHN EUSEBIO AICHHOLZFacility:N6Lqhxy: 02-21-2022 End: 94-37-7721mvhkwzdhzoYwhzmw HaladayFacility:[facility] Centertart: 02-21-2022 End: 23-23-7805Blijopa encounter procedureMD Lauro Brito Work Phone: [facility] Strub RdStart: 01-04-2022 End: 02-26-3857ulkozmwodfLJ LIBRADO A NADERERFacility:K9Ztfrt: 01-03-2022 End: 33-93-1136ezddmjfezkNQ LIBRADO A NADERERFacility:I7Layrs: 04-04-2020 End: 77-25-5467Dlcihxnlqx hospital visit by Flora Mcadams Work Phone: stvz ORComment on above:Status post total hip replacement, left (Primary Dx); Post-operative painStart: 03-31-2020 End: 54-87-1518Daghwmw encounter procedureMARC BOB [facility] HospitalStart: 03-31-2020 End: 88-61-2569Fkchjfvkik hospital visit by physicianRodo Rodriguez19 Pat Screening ScheduleMTHZ PRE ADMITStart: 03-23-2020 End: 93-31-6180Bhizhdwoox hospital visit by physicianSmya C-Arm [address] [place] [address] RadiologyComment on above:ArrivedStart: 03-23-2020 End: 92-79-4601Yrsymjyawm hospital visit by physicianStlogan Bishop 1STVZ Pre-Admit TestingComment on above:Pre-op testing; Abnormal finding of blood chemistry, unspecified ; Arthritis of left hip Procedures DateProcedureProcedure DetailPerforming ClinicianStart: 66-20-8728Xyhghrvljil Librado Solorzano MD Work Phone: Start: 03-52-7625Hcsoxwjjxt exam chest 2 viewsCrystal Mcadams DO Work Phone: start: 24-26-8844Kdw routine ecg w/least 12 lds trcg only w/o i&rRramón Mcadams DO Work Phone: start: 74-69-3769Ublid dip stick/tablet rgnt auto w/o microscopyCrystal Mcadams DO Work Phone: start: 81-37-2221Zyabmzuubarrw metabolic panelCrystal Mcadams DO Work Phone: start: 24-07-8864Veusq count complete auto&auto difrntl wbcFortunato G Vick Work Phone: Start: 53-06-0843Baiis hip unilateral with pelvis 2-3 viewsFortunato G Vick Work Phone: Start: 77-06-3658Dujvetpkpiv during operationCrystal Mcadams Work Phone: Start: 35-14-1469HDZKK-19[facility]ENTERC NADERERStart: 03-31-2020 COVID-19Lustella Hoang Work Phone: Start: 39-09-4807Afpbz s aureus methicillin resist amp probe tqCrystal Mcadams Work Phone: Start: 07-39-2693Akiit dip stick/tablet rgnt auto w/o microscopyCrystal Mcadams Work Phone: Start: 27-34-6968Xumkz count complete automatedCrystal Mcadams Work Phone: Start: 66-41-3233Ljbtdniecjasf metabolic panelCrystal Mcadams Work Phone: Start: 22-91-9233Idwkmvgxxg glycosylated o0zQojrjfcCrystal Mcadams Work Phone: Start: 63-38-0111Sdxcnnjvpf exam chest 2 viewsCrystal Mcadams Work Phone: Start: 57-61-3624Vbw routine ecg w/least 12 lds trcg only w/o i&rRramón Mcadams Work Phone: Start: 42-32-3010KXL REPORTHpf ScanningStart: 13-37-0931QrowyzirphoWjua Rashad ESTRADA Work Phone: Plan of Treatment DateCare ActivityDetailAuthorStart: 08-47-9383Aafvggnnm for malignant neoplasm of colonNOMS HealthcareStart: 05-56-9724Wbamvexhw for malignant neoplasm of breastMammogramNOMS HealthcareStart: 71-10-5155Gdjuopy referralCrystal Clinic [facility] Work Phone: Start: 03-10-2025 End: 75-17-1038Kxkywld encounter oyayotzkw68/09/2025 10:45 AM EDT Office Visit [facility] [address] [place] [address] Librado Solorzano MD [address] [place] [address] NOMS CWGenevieve FMStart: 48-27-5387Iyuxvfspd vaccinationNOMS HealthcareStart: 12-07-2024 End: 10-91-7073WB Chest for screening WO contrastCT lung screening low dose Imaging Routine Former smoker Expected: 12/07/2024, Expires: 12/07/2025[facility] Work Phone: Comment on above:Expected: 12/07/2024, Expires: 12/07/2025Start: 12-07-2024 End: 28-80-6323Ijgmcvu encounter procedureNOMS CWM FMComment on above:Arrived Start: 09-07-2024 End: 32-89-2215Lhfdupx encounter procedureNOMS CWM FMComment on above:Arrived Start: 44-58-4793Yjgmsxfqv for malignant neoplasm of breastMammogramNOAK HealthcareComment on above:Postponed from 11/22/2015 (Patient Refused)Start: 03-17-2024 End: 42-32-3168Eondlgcchu A1c/Hemoglobin.total in BloodHemoglobin A1c Lab Routine Prediabetes Expected: 03/17/2024 (Approximate), Expires: 03/17/2025[facility] Healthcare Work Phone: Comment on above:Expected: 03/17/2024 (Approximate), Expires: 03/17/2025Start: 03-09-2024 End: 88-17-5443Ghjmy metabolic 1998 panel - Serum or PlasmaBasic metabolic panel Lab Routine Encounter for long-term current use of medication Expected: 2023 (Approximate), Expires: 03/09/2025[facility] Healthcare Work Phone: Comment on above:Expected: 03/09/2024 (Approximate), Expires: 03/09/2025Start: 03-09-2024 End: 77-29-6795CPE W Auto Differential panel - BloodCBC and differential Lab Routine Encounter for long-term current use of medication Expected: 03/09/2024 (Approximate), Expires: 03/09/2025[facility] HealthcareComment on above:Expected: 03/09/2024 (Approximate), Expires: 03/09/2025Start: 03-09-2024 End: 89-51-2984Ofinfgm function 2000 panel - Serum or PlasmaHepatic function panel Lab Routine Encounter for long-term current use of medication Expected: 03/09/2024 (Approximate), Expires: 03/09/2025NOMS HealthcareComment on above: Expected: 03/09/2024 (Approximate), Expires: 03/09/2025Start: 03-09-2024 End: 78-23-6081Iuaxcy monitor studyHolter monitor Imaging Routine Heart palpitations Expected: 03/09/2024 (Approximate), Expires: 03/09/2025NOMS HealthcareComment on above:Expected: 03/09/2024 (Approximate), Expires: 03/09/2025Start: 03-09-2024 End: 22-12-3784Szrph 1996 panel - Serum or PlasmaLipid panel Lab Routine Dyslipidemia ([facility]/HCC) Expected: 03/09/2024 (Approximate), Expires: 03/09/2025 NOMS HealthcareComment on above:Expected: 03/09/2024 (Approximate), Expires: 03/09/2025Start: 03-09-2024 End: 84-46-6309AI Breast - bilateral ScreeningBilateral screening mammogram Imaging Routine Breast cancer screening by mammogram Expected: 03/09/2024, Expires: 05/09/2025NOMS HealthcareComment on above:Expected: 03/09/2024, Expires: 05/09/2025Start: 03-09-2024 End: 06-04-4671Aigpgsvtdlr [Units/volume] in Serum or PlasmaTSH Lab Routine Hypothyroidism, adult ([facility]/HCC) Expected: 03/09/2024 (Approximate), Expires: 03/09/2025NOMS HealthcareComment on above:Expected: 03/09/2024 (Approximate), Expires: 03/09/2025Start: 03-09-2024 End: 44-83-1474Mvvygrrmz (T4) free [Mass/volume] in Serum or PlasmaT4, free Lab Routine Hypothyroidism, adult ([facility]/HCC) Expected: 03/09/2024 (Approximate), Expires: 03/09/2025NOMS HealthcareComment on above:Expected: 03/09/2024 (Approximate), Expires: 03/09/2025Start: 03-09-2024 End: 37-91-8821Vyzjjtrcclmzpjiz (T3) Free [Mass/volume] in Serum or PlasmaT3, free Lab Routine Hypothyroidism, adult (CMS/HCC) Expected: 03/09/2024 (Approximate), Expires: 03/09/2025NOMS HealthcareComment on above:Expected: 03/09/2024 (Approximate), Expires: 03/09/2025Start: 03-09-2024 End: 47-77-9051Oiqfaxp encounter oaawbxfkl12/08/2024 10:00 AM EDT Office Visit [facility] [address] [place] [address] Librado Solorzano MD [address] [place] [address] ArrivedNOINTEGRIS HE[facility]MON[facility] FMComment on above:ArrivedStart: 60-82-5516Cbebvjtjy vaccinationInfluenza Vaccine (#1)[facility] HealthcareStart: 08-28-2022 End: 02-28-1689Oqgudyy encounter tfoxchjhz95/29/2023 Office Visit Orthopedic Surgery Audrey Frias PA-C [address] [place], [place] [id number] [facility] Start: 08-13-2022 End: 23-60-2929Tbscntckmio knee diagnostic w/wo synovial bx spxKNEE ARTHROSCOPY Acute medial meniscus tear of left knee, initial encounter 08/13/2022 3:55 PM [facility]: 08-13-2022 End: 26-15-3276Ajflqsfkj to same day surgery ojmyym0208/13/2022 Surgery IP Unit Crystal Mcadams, [address] [place], [place] [id number] LEFT KNEE ARTHROSCOPY PARTIAL MEDIAL MENISECTOMYSTAZ ORComment on above:LEFT KNEE ARTHROSCOPY PARTIAL MEDIAL MENISECTOMYStart: 08-13-2022 End: 12-31-7070Ymdruoochnc knee diagnostic w/wo synovial bx spxKNEE ARTHROSCOPY Acute medial meniscus tear of left knee, initial encounter 08/13/2022 2:45 PM [facility]Met[facility] HospitalStart: 75-74-8589Cicgognutm hospital visit by uqpvbglfc58/14/2023 Hospital Encounter IP Unit Crystal Mcadams, DO [address] [place] [address] STAZ ORStart: 36-10-0118Revgnitqw complement CH50 [facility] Work Phone: Start: 04-19-2020 End: 36-41-6258Pwdwsn Visit04/19/2020 Office Visit Orthopedic Surgery Pfuadore, Audrey Troncoso PA-C [address] [place] [address] [phone] [facility] Orthopedics and Sports MedicineStart: 04-04-2020 End: 91-88-4413Fcdcevmw EncounterSTVZ ORComment on above:HIP TOTAL ARTHROPLASTY ANTERIOR APPROACH (MEDACTA, MEDACTA TABLE, FASCIA ILLIACA, SPINAL VS. GENERAL, SUPINE, C-ARM)Start: 03-31-2020 End: 39-59-1501Kryzizlngrs91/30/2020 Appointment Pre-Admission TestingMTHZ PRE ADMITStart: 22-60-3477Ktgkdt Wellness Visit (AWV)Annual Wellness Visit (AWV)[facility]Start: 70-75-9291Idtbebzsp vaccinationFlu vaccine (#1)[facility]: 75-93-4265Leatzhlcilay 65+ years Vaccine (1 - PCV) Pneumococcal 65+ years Vaccine (1 - PCV)[facility]: 96-20-6034Kqytzrnaqzme 65+ years Vaccine (1 of 1 - PPSV23)Pneumococcal 65+ years Vaccine (1 of 1 - PPSV23)[facility]: 92-10-3742Zrrhsyqdnqoj Vaccine: 65+ Years (1 of 1 - PCV)Pneumococcal Vaccine: 65+ Years (1 of 1 - PCV) [facility]: 68-97-5096Rrbbejgon for osteoporosisDEXA (modify frequency per FRAX score)[facility]: 67-83-1353Qjzhwfeqtzde Vaccine: 65+ Years (1 of 1 - PCV)Pneumococcal Vaccine: 65+ Years (1 of 1 - PCV)[facility] CenterStart: 21-42-9213Yxntjioua for malignant neoplasm of breastBreast cancer screenBON Memorial Hospitalart: 82-57-5025Jyaqukysf for malignant neoplasm of colonColon cancer screen [place], [place]: 49-75-0292Skvhcjtc Vaccine (1 of 2)Shingles Vaccine (1 of 2)[facility]: 35-22-6391Cuwgwpnxy for malignant neoplasm of colonBON [facility]: 84-64-6125Dogwq panelRiverside Regional Medical Center: 82-39-3993XTrD/Tdap/Td vaccine (1 - Tdap)DTaP/Tdap/Td vaccine (1 - Tdap)[facility] Hospitalart: 59-57-6044Siodlkybs C screeningHepatitis C screenRiverside Regional Medical Center: 03-23-1561Btygimcqrj ScreenDepression ScreenRiverside Regional Medical Center: 94-07-6187Ekigbitvc C screeningHepatitis C screen [facility]art: 1951Medicare Annual Wellness (AWV)Medicare Annual Wellness (AWV)[facility] HealthcareStart: 10-11-5853Owwvaybgj for malignant neoplasm of colonNOAK HealthcareStart: 68-95-4334Nkllnjxpg for malignant neoplasm of lungLung Cancer Screening Shared Decision MakingCrossroads Regional Medical Center Complement C3 [Mass/volume] in Serum or [facility] Work Phone: Complement C4 [Mass/volume] in Serum or Plasma [facility] Work Phone: Comprehensive metabolic 2000 panel - Serum or Plasma [facility] HospitalHemolytic complement CH50 [facility] Work Phone: [phone] [Presence] by BILL with probe detection [facility] Work Phone: End: 95-95-4537ANRBPYNG PACU OXYGEN THERAPY PROTOCOLInitiate PACU Oxygen Therapy Protocol Respiratory Care Routine Continuous until discontinued starting 08/13/2022ON [employer] Work Phone: Comment on above:Continuous until discontinued starting 08/13/2022Oxygen therapy [Minimum Data Set]Initiate Oxygen Therapy Protocol Respiratory Care Routine Daily until discontinued starting 04/04/2020 [facility] [place] [place]Comment [place]:Daily until discontinued starting 04/04/2020Oxygen therapy [Minimum Data Set]Initiate Oxygen Therapy Protocol Respiratory Care Routine As Needed until discontinued starting 08/13/2022ON [facility] CENTERJenn Rykert Work Phone: Comment on above:As Needed until discontinued starting 3Patient [facility] Work Phone: End: 39-89-1992Hfnyoplbhuv care for evaluation onlyRespiratory care for evaluation only Respiratory Care Routine One Time for 1 Occurrences starting until 04/04/2020[facility] [place]Comment on above:One Time for 1 Occurrences starting 04/04/2020 until 04/04/2020Spirometry panelIncentive spirometry Respiratory Care Routine Every 2hr while awake until discontinued starting 04/04/2020[facility] [place], [place]Comment on above:Every 2hr while awake until discontinued starting 04/04/2020XR Shoulder - right ViewsOrlando Health Emergency Room - [facility] Immunizations Immunization DateImmunizationNotesCare SqcfgicqArybblsx09-98-5151mastiavdn virus vaccine, unspecified formulationLibrado Solorzano MD Work Phone: [facility] Healthcare Payers DatePayer CategoryPayerPolicy ID2022Self-pay2016MedicareMEDICAL MUTUAL MEDICARE MEDICAL [place] MEDICARE [id number] 2016-Present [address] [place] [id number] Medicare (Managed Care)[employer] MEDIC[employer] Member Subscriber Plan / Payer (Effective 2016-Present) Name: Radha Farnsworth ID: [id number] Relation to Subscriber: Self Name: Radha Farnsworth Payer ID: Not on file Type: Not on file Address: [address] [id number] [id number] [id number] 2.16840.1.099755.3.57[id number] 2.16840.1.904689.3.57[id number] 2.16840.1.590930.3.57[id number] 2.16840.1.233203.3.57[id number] 2.840.1.016586.3.57[id number] 2.16840.1.317817.3.57[id number] 2.16840.1.497897.3.57[id number] 2.16840.1.692487.3.57[id number] 2.16840.1.212603.3.57[id number] 2.16840.1.633776.3.57[id number] 2.16.840.1.765592.3.57[id number] 2.16.840.1.926799.3.57[id number] 2.16.840.1.021151.3.57[id number] 2.16.840.1.45[id number] 2.16.840.1.635339.3.579.2.531 Social History DateTypeDetailFacilityStart: 03-23-2020 End: 51-81-8609Jycoqlm smoking status NHISFormer Sharri [employer] Start: 06-02-1985 End: 27-92-5729Qiqebss of tobacco useCurrent smokerProtestant Hospital: 03-23-2020 End: 08-19-0576Zwdpyvd use and exposureNever usedProtestant Hospital: 03-23-2020 End: 42-23-7780Tjnhysf intakeCurrent drinker of alcohol (finding)[facility]: 12-74-1984Veptjup CommentoccasionallyProtestant Hospital: 96-94-3467Fsp Assigned At BirthNot on [facility]: 07-14-2022 End: 49-19-5261Mpwyjhsu to SARS-CoV-2 (event)Not [facility]: 16-24-9566Qps Assigned At BirthFeBellevue Hospitaltart: 06-02-1984 End: 72-76-0942Jcadhvx of tobacco useCigarette SilvestreBANNER REH[facility]ATION [facility] Work Phone: start: 07-04-2022 End: 12-98-4311Pgsroulwif smoked current (pack per day) - Reported0.5BON [employer] [facility]ALS[facility] Media Phone: start: 37-32-8181Jfuoads CommentDailyBON [facility] [employer] Work Phone: start: 09-02-2023 End: 17-99-0529Akuntdr use panelMOUNTAIN WEST MEDICAL [facility]ENTER HealthcareSexFemale (finding)[facility] Medical Equipment Procedure CodeEquipment CodeEquipment Original TextEquipment IdentifierDates Shell Acet Od56mm Lnr Dmh Dbl Mobility [id number]_tyfAwwfy: 91-48-3663Kmlnz Acet Sz Dmh Od56mm Id28mm Fairchance Atul Dbl [id number]_jwqQyrqt: 01-00-5301Ttgn Fem Sz 8 Lat Hip Mectagrip Cementless Flat Dbl [id number]_ljeQowlj: 04-04-2020 Head Fem M Qtv10am Hip Co Chrom [id number]_tecHtofj: 09-14-2144Oyqmrghma Tot Hip Capped Std Kaushal Jprz160545_qavDftaa: 04-04-2020 Goals DatePatient GoalDesired Activity/StatePersonal health goal Functional Status VgjwGtbrfoqmkhZlaaibXbsozcud73-21-2388Aovbfbi Health Questionnaire 2 item (PHQ- 2) [Reported][facility] Clinical Notes 01-04-2022 to 12-07-2024 Note Date & BscjRppsPbxogfbn11-82-0285 History of Present illness Narrative* Librado Solorzano MD - 12/07/2024 12:20 PM EDTAssociated Problem(s): Medicare annual wellness visit, subsequent Reviewed labs. Discussed proper diet and regular aerobic exercise. Need aerobic exercise 5-6 days aweek for 30 minutes at a time. Smaller portions and limit total calories. Cologuard normal September 2023. Tetanus every 10 years. Advised not to smoke. * Librado Solorzano MD - 12/07/2024 12:20 PM EDTAssociated Problem(s): Former smoker Quit in 2016 but over 30 pack year smoking history. Check LDCT chest. * Librado Solorzano MD - 12/07/2024 10:45 AM EDT Images from the original note were not included. Subjective Patient ID: Radha Farnsworth is a 74 y.o. female who presents for Follow-up (Wellness/). Presents for medicare annual wellness visit. Patient feels well today. Weight down 5 pounds over the past several months. Tries to stay active around house but no regular exercise. Tries to watch diet and eat healthy. Increased fruits and vegetables. Smaller portions and limits snacking. Tries to limit total daily calories. Reviewed labs from fall. Former smoker and previously smoked 1 PPD for over 30 years. Quit in 2016 and never had LDCT chest to screen for lung cancer. Review of Systems Respiratory: Negative for cough, shortness of breath and wheezing. Cardiovascular: Negative for chest pain and palpitations. Gastrointestinal: Negative for abdominal pain, diarrhea, nausea and vomiting. Genitourinary: Negative for dysuria. Objective Physical Exam Constitutional: General: She is not in acute distress. Appearance: Normal appearance. HENT: Head: Normocephalic. Right Ear: Tympanic membrane normal. Left Ear: Tympanic membrane normal. Eyes: Extraocular Movements: Extraocular movements intact. Pupils: Pupils are equal, round, and reactive to light. Cardiovascular: Rate and Rhythm: Normal rate and regular rhythm. Heart sounds: No murmur heard. No friction rub. No gallop. Pulmonary: Effort: Pulmonary effort is normal. Breath sounds: Normal breath sounds. No wheezing, rhonchi or rales. Abdominal: General: Bowel sounds are normal. There is no distension. Palpations: Abdomen is soft. Tenderness: There is no abdominal tenderness. There is no guarding or rebound. Musculoskeletal: General: No swelling or tenderness. Cervical back: Neck supple. Right lower leg: No edema. Left lower leg: No edema. Skin: Findings: No erythema or rash. Neurological: General: No focal deficit present. Mental Status: She is alert and oriented to person, place, and time. Cranial Nerves: No cranial nerve deficit. Motor: No weakness. Gait: Gait normal. Assessment/Plan Problem List Items Addressed This Visit Medicare annual wellness visit, subsequent - Primary Reviewed labs. Discussed proper diet and regular aerobic exercise. Need aerobic exercise 5-6 days aweek for 30 minutes at a time. Smaller portions and limit total calories. Cologuard normal September 2023. Tetanus every 10 years. Advised not to smoke. Former smoker Quit in 2016 but over 30 pack year smoking history. Check LDCT chest. Relevant Orders CT lung screening low dose documented in this encounterCrossroads Regional Medical CenterLsvbgxwsdp51-36-8210 History of Present illness Narrative* Librado Solorzano MD - 09/07/2024 10:53 AM EDTAssociated Problem(s): Primary insomnia Sleeping well and continue xanax PRN. * Librado Solorzano MD - 09/07/2024 10:53 AM EDTAssociated Problem(s): Major depressive disorder, recurrent, moderate (CMS/HCC) Symptoms worse and increase wellbutrin. Warned will take 2-3 weeks to notice improvement in symptoms. * Librado Solorzano MD - 09/07/2024 10:53 AM EDTAssociated Problem(s): Generalized anxiety disorder (CMS/HCC) Symptoms worse and increase wellbutrin. Warned will take 2-3 weeks to notice improvement in symptoms. Use xanax PRN. * Librado Solorzano MD - 09/07/2024 10:51 AM EDTAssociated Problem(s): Chronic rhinosinusitis Symptoms worse and treat with antibiotics and steroids. Use OTC PRN. * Librado Solorzano MD - 09/07/2024 10:00 AM EDT Images from the original note were not included. Subjective Patient ID: Radha Farnsworth is a 74 y.o. female who presents for Follow-up (6m /IBS issues). Follow up depression, anxiety, insomnia, and allergies. Mood recently worse. Increased depression symptoms and down, sad, and no motivation. Not interacting well with others. Anxiety worse. Severe stress and not handling well. Nervous and worry all the time. Stressed out and overwhelmed. Thought racing and hard to clear mind. Weinstein, irritable and snapping at others. Easily upset and overreact. Using xanax PRN and helps when needed. Sleeping well and uses xanax PRN. Able to fall asleep and stay asleep. Wakes up rested in am. C/o worsening sinus symptoms over the past few weeks. Afebrile. Severe fatigue and no energy. Mild cough dry and nonproductive. Denies chest tightness or SOB. ROB and sinus pressure in forehead and cheeks along with postnasal drip. Ears plugged and popping. Sore throat and pain to swallow. Mild nausea. Denies recent sick contacts. Using OTC medication and mild relief.No improvement in symptoms since onset. Review of Systems Respiratory: Negative for cough, shortness of breath and wheezing. Cardiovascular: Negative for chest pain and palpitations. Gastrointestinal: Negative for abdominal pain, diarrhea, nausea and vomiting. Genitourinary: Negative for dysuria. Objective Physical Exam Constitutional: General: She is not in acute distress. Appearance: Normal appearance. HENT: Head: Normocephalic. Right Ear: Tympanic membrane normal. Left Ear: Tympanic membrane normal. Eyes: Extraocular Movements: Extraocular movements intact. Pupils: Pupils are equal, round, and reactive to light. Cardiovascular: Rate and Rhythm: Normal rate and regular rhythm. Heart sounds: No murmur heard. No friction rub. No gallop. Pulmonary: Effort: Pulmonary effort is normal. Breath sounds: Normal breath sounds. No wheezing, rhonchi or rales. Abdominal: General: Bowel sounds are normal. There is no distension. Palpations: Abdomen is soft. Tenderness: There is no abdominal tenderness. There is no guarding or rebound. Musculoskeletal: Cervical back: Neck supple. Right lower leg: No edema. Left lower leg: No edema. Neurological: Mental Status: She is alert. Assessment/Plan Problem List Items Addressed This Visit Generalized anxiety disorder (CMS/HCC) Symptoms worse and increase wellbutrin. Warned will take 2-3 weeks to notice improvement in symptoms. Use xanax PRN. Primary insomnia Sleeping well and continue xanax PRN. Major depressive disorder, recurrent, moderate (CMS/HCC) - Primary Symptoms worse and increase wellbutrin. Warned will take 2-3 weeks to notice improvement in symptoms. Relevant Medications buPROPion XL (Wellbutrin XL) 300 MG 24 hr tablet Chronic rhinosinusitis Symptoms worse and treat with antibiotics and steroids. Use OTC PRN. Relevant Medications cefdinir (Omnicef) 300 MG capsule predniSONE (Deltasone) 50 MG tablet documented in this encounterCrossroads Regional Medical [id number] History of Present illness Narrative* Librado Solorzano MD - 03/09/2024 10:46 AM EDTAssociated Problem(s): Right foot pain Podiatry found torn tendon and has since retired. If worsens will refer to new podiatry. * Librado Solorzano MD - 03/09/2024 10:45 AM EDTAssociated Problem(s): Primary insomnia Sleeping well and continue xanax PRN. * Librado Solorzano MD - 03/09/2024 10:45 AM EDTAssociated Problem(s): MDD (major depressive disorder), recurrent episode, mild (HCC) (CMS/HCC) Symptoms controlled with wellbutrin and continue. * Librado Solorzano MD - 03/09/2024 10:45 AM EDTAssociated Problem(s): Heart palpitations Occasional pause noted but not symptomatic. Check Holter. * Librado Solorzano MD - 03/09/2024 10:45 AM EDTAssociated Problem(s): Generalized anxiety disorder (CMS/HCC) Symptoms controlled with wellbutrin and continue. Use xanax PRN. * Librado Solorzano MD - 03/09/2024 10:44 AM EDTAssociated Problem(s): Chronic rhinosinusitis Symptoms controlled with medication and continue. * Librado Solorzano MD - 03/09/2024 10:00 AM EDT Images from the original note were not included. Subjective Patient ID: Radha Farnsworth is a 74 y.o. female who presents for Follow-up (6M /TENDON ISSUES). Follow up depression, anxiety, insomnia, and allergies. Depression controlled with wellbutrin. Not down, sad, or crying. Able to increase activity and doing more. Interacting well with others. Overall feels much happier. Anxiety stable. Not as stressed out or overwhelmed. Not as nervous or worry asmuch. Not as weinstein or irritable. Using xanax PRN and helps when needed. Sleeping well and uses xanax PRN. Able to fall asleep and stay asleep. Wakes up rested in am. Concerned of memory loss. Notice increased forgetfulness. Family reports she keeps asking the same questions and repeating self. No confusion. Feels like harder to concentrate. Continued pain in right foot. Seen by podiatry and MRI showed torn tendon. Pain with walking and standing. Concerned of something wrong with heart. Last fewtimes when donating blood they noticed something. Told her if occurred 15 times wouldn't be able todonate. Not lightheaded or dizzy. Occasionally feels heart skipping. Allergies controlled with medication. No congestion or rhinorrhea. No ROB or sinus pressure. Ears not plugged or popping. Review of Systems Respiratory: Negative for cough, shortness of breath and wheezing. Cardiovascular: Positive for palpitations. Negative for chest pain. Gastrointestinal: Negative for abdominal pain, diarrhea, nausea and vomiting. Genitourinary: Negative for dysuria. Objective Physical Exam Constitutional: General: She is not in acute distress. Appearance: Normal appearance. HENT: Head: Normocephalic. Right Ear: Tympanic membrane normal. Left Ear: Tympanic membrane normal. Eyes: Extraocular Movements: Extraocular movements intact. Pupils: Pupils are equal, round, and reactive to light. Cardiovascular: Rate and Rhythm: Normal rate. Rhythm irregular. Heart sounds: No murmur heard. No friction rub. No gallop. Pulmonary: Effort: Pulmonary effort is normal. Breath sounds: Normal breath sounds. No wheezing, rhonchi or rales. Abdominal: General: Bowel sounds are normal. There is no distension. Palpations: Abdomen is soft. Tenderness: There is no abdominal tenderness. There is no guarding or rebound. Musculoskeletal: Cervical back: Neck supple. Right lower leg: No edema. Left lower leg: No edema. Neurological: Mental Status: She is alert. Assessment/Plan Problem List Items Addressed This Visit Generalized anxiety disorder (CMS/HCC) Symptoms controlled with wellbutrin and continue. Use xanax PRN. Dyslipidemia (CMS/HCC) Relevant Orders Lipid panel Hypothyroidism, adult (CMS/HCC) Relevant Orders TSH T4, free T3, free Primary insomnia Sleeping well and continue xanax PRN. MDD (major depressive disorder), recurrent episode, mild (HCC) (CMS/HCC) - Primary Symptoms controlled with wellbutrin and continue. Right foot pain Podiatry found torn tendon and has since retired. If worsens will refer to new podiatry. Chronic rhinosinusitis Symptoms controlled with medication and continue. Encounter for long-term current use of medication Relevant Orders Basic metabolic panel CBC and differential Hepatic function panel Heart palpitations Occasional pause noted but not symptomatic. Check Holter. Relevant Orders Holter monitor Other Visit Diagnoses Breast cancer screening by mammogram Relevant Orders Bilateral screening mammogram documented in this encounterCrossroads Regional Medical [id number] Hospital Discharge instructions* Discharge Instructions* Colin Márquez DO - 08/13/2022 5:40 PM EDT Orthopedic Instructions: -Weight bearing status: weight bear as tolerated to the right leg -Keep dressing clean and dry. -Dress with plastic bag and rubber band to seal and repeat with second bag and rubber band when showering. Press & Seal wrap also works for sealing the rubber bag when showering. -Starting 3 days after surgery, Ok for daily dressing changes until wound is dry. Then leave open to air. if wound is no longer leaking, Ok to shower but no soaks or baths. -Ice (20 minutes on and off 1 hour) and elevate (above heart) as needed for swelling/pain -Drink plenty of fluids. -Call the office or come to Emergency Room if signs of infection appear (hot, swollen, red, draining pus, fever) -Take medications as prescribed. -Wean off narcotics (percocet/norco) as soon as possible. Do not take tylenol if still taking narcotics. -No alcoholic beverages or driving/operating machinery while on narcotics -Follow up with Dr. Mcadams in his office in 10-14 days after surgery/discharge. Call [phone] to schedule. documented in this encounterBON KINGMAN REGIONAL MEDICAL CENTERJenn Rykert Work Phone: [phone] NotePROCEDURE: XR KNEE LT 3V HISTORY: Pain of left knee joint ; no known injury COMPARISON: None. FINDINGS: BONES:Tiny degenerative osteophytes along the articular margins of all 3 compartments. No fracture, dislocation, bone lesion. SOFT TISSUES:Calcium deposition within the menisci. EFFUSION:None visible. OTHER: Negative. IMPRESSION: 1. Mild degenerative changes. 2. No acute bone abnormality. Electronically authenticated by: DENNISE BARLOW Date: 2022-03-26 17:00[facility]08-05-2022 NotePROCEDURE: XR HAND RT MIN 3V HISTORY: Joint pain in right hand ; increasing arthralgia of right hand COMPARISON: None. FINDINGS: BONES:Large degenerative osteophytes/enthesophytes along the dorsal margins of the distal interphalangeal joint of the second, third, and fifth digits and also involving the interphalangeal joint of the first digit. Moderate degenerative changes of the first and second carpal-metacarpal joints. No fracture, dislocation, bone lesion. SOFT TISSUES:No visible soft tissue swelling. EFFUSION:None visible. OTHER: Negative. IMPRESSION: 1. Multifocal moderate-marked degenerative joint disease suggestive of osteoarthritis. No prior studies to document progression. Electronically authenticated by: DENNISE BARLOW Date: 2022-01-04 07:49[facility] CenterEvaluation noteNo assessment information availableParkview Health Bryan Hospital Work Phone: Evaluation note* Diagnosis Pre-op testing Preoperative examination, unspecified Acute medial meniscus tear of left knee, initial encounter documented in this encounter [facility] [employer] Phone: evaluation note* Diagnosis Post-op pain- Primary Other acute postoperative pain Degenerative tear of left medial meniscus Tear of medial cartilage or meniscus of knee, current Degenerative tear of lateral meniscus, left Plica syndrome, left knee documented in this encounter [employer] Phone: evalibjgvm note* Diagnosis MDD (major depressive disorder), recurrent episode, mild (HCC) (CMS/HCC)- Primary Generalized anxiety disorder (CMS/HCC) Generalized anxiety disorder Primary insomnia Persistent disorder of initiating or maintaining sleep Chronic rhinosinusitis Unspecified sinusitis (chronic) Dyslipidemia (CMS/HCC) Other and unspecified hyperlipidemia Hypothyroidism, adult (CMS/HCC) Other specified acquired hypothyroidism Encounter for long-term current use of medication Breast cancer screening by mammogram Heart palpitations Palpitations Right foot pain Pain in soft tissues of limb documented in this encounter [facility]* Diagnosis Breast cancer screening by mammogram- Primary MDD (major depressive disorder), recurrent episode, mild (HCC) (CMS/HCC) Generalized anxiety disorder (CMS/HCC) Generalized anxiety disorder Primary insomnia Persistent disorder of initiating or maintaining sleep Chronic rhinosinusitis Unspecified sinusitis (chronic) Colon cancer screening Special screening for malignant neoplasms, colon Right foot pain Pain in soft tissues of limb MDD (major depressive disorder), recurrent episode, mild (HCC) (CMS/HCC)- Primary Generalized anxiety disorder (CMS/HCC) Generalized anxiety disorder Primary insomnia Persistent disorder of initiating or maintaining sleep Chronic rhinosinusitis Unspecified sinusitis (chronic) Dyslipidemia (CMS/HCC) Other and unspecified hyperlipidemia Hypothyroidism, adult (CMS/HCC) Other specified acquired hypothyroidism Encounter for long-term current use of medication Breast cancer screening by mammogram Heart palpitations Palpitations Right foot pain Pain in soft tissues of limb Prediabetes- Primary Other abnormal glucose [facility]* Diagnosis Breast cancer screening by mammogram- Primary MDD (major depressive disorder), recurrent episode, mild (HCC) (CMS/HCC) Generalized anxiety disorder (CMS/HCC) Generalized anxiety disorder Primary insomnia Persistent disorder of initiating or maintaining sleep Chronic rhinosinusitis Unspecified sinusitis (chronic) Colon cancer screening Special screening for malignant neoplasms, colon Right foot pain Pain in soft tissues of limb MDD (major depressive disorder), recurrent episode, mild (HCC) (CMS/HCC)- Primary Generalized anxiety disorder (CMS/HCC) Generalized anxiety disorder Primary insomnia Persistent disorder of initiating or maintaining sleep Chronic rhinosinusitis Unspecified sinusitis (chronic) Dyslipidemia (CMS/HCC) Other and unspecified hyperlipidemia Hypothyroidism, adult (CMS/HCC) Other specified acquired hypothyroidism Encounter for long-term current use of medication Breast cancer screening by mammogram Heart palpitations Palpitations Right foot pain Pain in soft tissues of limb Generalized anxiety disorder (CMS/HCC) Generalized anxiety disorder [facility]* Diagnosis Breast cancer screening by mammogram- Primary MDD (major depressive disorder), recurrent episode, mild (HCC) (CMS/HCC) Generalized anxiety disorder (CMS/HCC) Generalized anxiety disorder Primary insomnia Persistent disorder of initiating or maintaining sleep Chronic rhinosinusitis Unspecified sinusitis (chronic) Colon cancer screening Special screening for malignant neoplasms, colon Right foot pain Pain in soft tissues of limb MDD (major depressive disorder), recurrent episode, mild (HCC) (CMS/HCC)- Primary Generalized anxiety disorder (CMS/HCC) Generalized anxiety disorder Primary insomnia Persistent disorder of initiating or maintaining sleep Chronic rhinosinusitis Unspecified sinusitis (chronic) Dyslipidemia (CMS/HCC) Other and unspecified hyperlipidemia Hypothyroidism, adult (CMS/HCC) Other specified acquired hypothyroidism Encounter for long-term current use of medication Breast cancer screening by mammogram Heart palpitations Palpitations Right foot pain Pain in soft tissues of limb Major depressive disorder, recurrent, moderate (CMS/HCC)- Primary Major depressive disorder, recurrent episode, moderate Generalized anxiety disorder (CMS/HCC) Generalized anxiety disorder Primary insomnia Persistent disorder of initiating or maintaining sleep Chronic rhinosinusitis Unspecified sinusitis (chronic) documented [facility]* Diagnosis Breast cancer screening by mammogram- Primary MDD (major depressive disorder), recurrent episode, mild Generalized anxiety disorder Generalized anxiety disorder Primary insomnia Persistent disorder of initiating or maintaining sleep Chronic rhinosinusitis Unspecified sinusitis (chronic) Colon cancer screening Special screening for malignant neoplasms, colon Right foot pain Pain in soft tissues of limb MDD (major depressive disorder), recurrent episode, mild- Primary Generalized anxiety disorder Generalized anxiety disorder Primary insomnia Persistent disorder of initiating or maintaining sleep Chronic rhinosinusitis Unspecified sinusitis (chronic) Dyslipidemia Other and unspecified hyperlipidemia Hypothyroidism, adult Other specified acquired hypothyroidism Encounter for long-term current use of medication Breast cancer screening by mammogram Heart palpitations Palpitations Right foot pain Pain in soft tissues of limb Major depressive disorder, recurrent, moderate (HCC)- Primary Major depressive disorder, recurrent episode, moderate Generalized anxiety disorder Generalized anxiety disorder Primary insomnia Persistent disorder of initiating or maintaining sleep Chronic rhinosinusitis Unspecified sinusitis (chronic) Medicare annual wellness visit, subsequent- Primary Former smoker Personal history of tobacco use, presenting hazards to health documented [facility] this encounter [facility]* Diagnosis Onset Date Resolution Status Admit Date Chronic rhinosinusitis acuteOctober 2024 10:31amChronic right shoulder painacuteOctober 2024 10:31amClass 1 obesity due to excess calories with serious comorbidity and body maacuteOctober 2024 10:31amEncounter for long-term (current) use of medicationsacuteOctober 2024 10:31amGeneralized anxiety disorderacute October 2024 10:31amHypothyroidism, adultacuteOctober 2024 10:31am Major depressive disorder, recurrent, moderateacuteOctober 2024 10:31am PrediabetesacuteOctober 2024 10:31amPrimary insomniaacuteOctober 2024 10:31am [facility] Work Phone: Reason for Referral StatusReasonSpecialtyDiagnoses / ProceduresReferred By ContactReferred To ContactOpenCardiology Diagnoses Pre-op testing Procedures EKG 12 Lead Crystal Mcadams, DO [address] [facility] [address] [place] [address] SpecialtyDiagnoses / ProceduresReferred By ContactReferred To ContactCardiology Diagnoses Pre-op testing Procedures EKG 12 Lead Bi Crystal Elder, DO [address] [facility] [address] [place] [address] Referral IDStatusReasonStart DateExpiration DateVisits RequestedVisits [id number] / Procedures Referred By ContactReferred To ContactRadiology Diagnoses Heart palpitations Procedures Holter monitor Librado Solorzano MD [address] [place] [address] Referral IDStatusReasonStcollins DateExpiration DateVisits RequestedVisits [id number]/ Discharge Instructions * Instructions* Khadijah Moncada, CERAMIC DESIGNER - BACTERIOLOGY TEACHER - 03/23/2020 Preoperative Instructions: Stop eating solid foods at midnight the night prior to surgery. Stop drinking clear liquids at 3 hours prior to surgery start time the day of surgery. (Follow bowel prep instructions as directed by your surgeon.) Arrive at the surgery center on 04/04/2020 (or as directed by your surgeon's office). The surgery center is located at Entrance B and is accessed from [facility]. There is foundry finisher parking available. When you enter through the sliding glass doors, you will be directed to a desk for registration. You will then be directed to the elevator to proceed to the surgery waiting room. If you have been given a blood band, you must bring it with you the day of surgery. Please stop any blood thinning medications as directed by your surgeon or prescribing physician. Failure to stop certain medications may interfere with your scheduled surgery. These may include: Aspirin, Warfarin (Coumadin), Clopidogrel (Plavix), Ibuprofen (Motrin, Advil), Naproxen (Aleve), Meloxicam (Mobic), Celecoxib (Celebrex), Eliquis, Pradaxa, Xarelto, Effient, Fish Oil, Herbal supplements. Please take the following medication(s) the day of surgery with a small sip of water: none Please use and bring inhalers the day of surgery. Khadijah Moncada FISCAL ECONOMIST-BC, AE-C 03/23/20 3:44 PM Signature (Patient) Signature (Provider) REMINDERS - You will need a friend or family member to drive you home after your procedure. Your non cdl driver must be 18 years of age or older and able to sign your discharge instructions. Taxi cabs or public transportation such as a bus are not acceptable. - Someone should stay with you for the first 24 hours after surgery if you receive anesthesia or medication. Your surgery may be cancelled if you do not arrange for someone to stay with you. - All jewelry, including any body piercings, must be removed prior to surgery. PREPARING FOR YOUR SURGERY: Before surgery, you can play an important role in your own health. Because skin is not sterile, we need to be sure that your skin is as free of germs as possible before surgery by carefully washing before surgery. Preparing or prepping skin before surgery can reduce the risk of a surgical site infection. Do not shave the area of your body where your surgery will be performed unless you received specific permission from your physician. You will need to shower at home the night before surgery and the morning of surgery with a special soap called chlorhexidine gluconate (CHG*). *Not to be used by people allergic to Chlorhexidine Gluconate (CHG). Following these instructions will help you be sure that your skin is clean before surgery. Instructions on cleaning your skin before surgery: The night before your surgery: ? You will need to shower with warm water (not hot) and the CHG soap. ? Use a clean wash cloth and a clean towel. Have clean clothes available to put on after the shower. ? First wash your hair with regular shampoo. Rinse your hair and body thoroughly to remove the shampoo. ? Wash your face with your regular soap or water only. Thoroughly rinse your body with warm water from the neck down. ? Turn water off to prevent rinsing the soap off too soon. ? With a clean wet washcloth and half of the CHG soap in the bottle, lather your entire body from the neck down. Do not use CHG soap near your eyes or ears to avoid injury to those areas. ? Wash thoroughly, paying special attention to the area where your surgery will be performed. ? Wash your body gently for five (5) minutes. Avoid scrubbing your skin too hard. ? Turn the water back on and rinse your body thoroughly. ? Pat yourself dry with a clean, soft towel. Do not apply lotion, cream or powder. ? Dress with clean freshly washed clothes. The morning of surgery: ? Repeat shower following steps above - using remaining half of CHG soap in bottle. If you have any questions, call the Pre-Admission Testing Unit at [phone] Day of Surgery/Procedure As a patient at [facility] you can expect quality medical and nursing care that is centered on your individual needs. Our goal is to make your surgical experience as comfortableas possible . Directions to the Surgery Center [facility] is located at [address] [place] [address]. Please pull into the Emergency parking lot and stop at the [employer] rodgers. We offer free foundry finisher service for all our surgery patients, if you choose not to have foundry finisher parking we have additional parking across the street.You will enter the facility under the blue canopy/walkway following the [facility] sign. Please stop at the raschel knitting machine operator desk where you will be checked in by the staff. If you have any questions please call [phone]. Transportation after your procedure. You will need a friend or family member to drive you home after your procedure. Your non cdl driver must be18 years of age or older and able to sign off on your discharge instructions. Taxi cabs or any formof public transportation is not acceptable. It is preferable that the friend or family member stay at the hospital throughout your procedure. Someone must remain with you for the first 24 hours after your surgery if you receive anesthesia ormedication. If you do not have someone to stay with you, your procedure may be cancelled. Patient Instructions ? If you are having any type of anesthesia you are to have nothing to eat or drink after midnight the night before your surgery. This includes gum, mints, water or smoking or chewing tobacco. The only exception to this is a small sip of water to take with any morning dose of heart, blood pressure, or seizure medications. ? Bring a list of all medications you take, along with the dose of the medications and how often you take it. If more convenient bring the pharmacy bottles in a zip lock bag. ? Please shower the night before and the morning of surgery with an antibacterial soap. Please use the wipes given to you the night before your surgery after your shower. Unless otherwise told by your physician, please do not shave legs or any part of your body below your neck the night before or day of your surgery. You may shave your face or neck. ? [place] your teeth but do not swallow water. ? Bring your inhaler if you are currently using one. ? Bring your eyeglasses and case with you. No contacts are to be worn the day of surgery. You also may bring your hearing aids. ? Bring your blood band if one has been given to you. Please do not close the clasp. ? If you are on C-PAP or Bi-PAP at home and plan on staying in the hospital overnight for your surgery please bring the machine with you. ? Do not wear any jewelry or body piercings day of surgery. Also, NO lotion, perfume or deodorant to be used the day of surgery. ? Do not bring any valuables, such as jewelry, fuentes or credit cards. If you are staying overnight with us, please bring a SMALL bag of personal items. We cannot accommodate large items, like suitcases. ? Please wear loose, comfortable clothing. If you are potentially going to have a cast or brace bring clothing that will fit over them. ? In case of illness If you have cold or flu like symptoms (high fever, runny nose, sore throat, cough, etc.) rash, nausea, vomiting, loose stools, and/or recent contact with someone who has a contagious disease (chicken pox, measles, etc.) Please call your doctor before coming to the hospital. ? If your child is having surgery please make arrangements for any other children to be cared for at home on the day of surgery. Other children are not permitted in recovery room and we want you to be able to spend time with the patient. If other arrangements are not available then we suggest that you have a second adult to stay in the waiting room. If you have any other questions regarding your procedure or the day of surgery, please call [phone], or [phone] documented in this encounter* Instructions* Juan Antonio Pabon DO - 04/04/2020 NERVE BLOCK DISCHARGE INSTRUCTIONS What is a nerve block and how does it work? Nerves control movement, pain and normal sensation. The Anesthesiologist has administered a local anesthetic medication to block normal sensations in the desired nerve ( s). The nerve block can causefeelings such as tingling, weakness, numbness, heaviness or the feeling that your arm or leg has fallen asleep How long will the nerve block last? The nerve block can last anywhere from 2-48 hours depending on the medications used. Normal sensation will gradually return. Frequently, weakness goes away first, then numbness or tingling, followed by the return of the feeling of pain. However, these feelings can return in any order. It usually takes 60 minutes for sensation to fully return once the nerve block starts to wear off. If the block does not wear off in 48 hours call the anesthesia department at [phone]. What if I had a shoulder nerve block? If you had a shoulder block you may experience additional side effects. These common and expected side effects include mild shortness of breath, a hoarse voice, blurry vision, unequal pupils, and drooping of your face on the same side as the nerve block. These effects usually go away within 12 hours. If they do not, please call the anesthesia department. GO TO THE NEAREST EMERGENCY DEPARTMENT IF YOU HAVE SEVERE OR PROLONGED SHORTNESS OF BREATH! Will you need pain medication? The nerve block is only one of many forms of pain relief available. If your surgeon has prescribed oral pain medication, then take it as prescribed as the numbness starts to wear off or at the first sign of pain to keep the pain from getting out of control once the block is gone. ADDITIONAL RESTRICTIONS UNTIL ALL NORMAL SENSATION RETURNS DO NOT DRIVE OR OPERATATE ANY HEAVY EQUIPMENT PROTECT THE ARM OR LEG FROM EXCESSIVE HEAT, COLD, OR PRESSURE POSITION YOUR EXTREMITY SO THAT IT IS SUPPORTED AND PROTECTED If you have questions or concerns after receiving a nerve block please phone the Anesthesiology Department at [phone]. If the phone does not get answered please contact the hospital engine room operator at [phone] to page the on-call anesthesiologist Orthopedic Instructions: -Weight bearing status: As tolerated to left leg -Keep dressing clean and dry. Ok to shower but no soaks or baths. -Physical Therapy for strengthening and gait training. Occupational therapy for activities of dailyliving. -Ice (20 minutes on and off 1 hour)as needed for swelling/pain -Drink plenty of fluids. -Call the office or come to Emergency Room if signs of infection appear (hot, swollen, red, draining pus, fever) -Take medications as prescribed. -Wean off narcotics (percocet/norco) as soon as possible. Do not take tylenol if still taking narcotics. -Follow up with in his office in 10-14 days after surgery/discharge. Call [phone] to schedule. documented in this encounter History of Present Illness * Dariusz Mcadams RN - 03/23/2020 2:30 PM EDT Medical and dental clearance on chart for or 04/04/20. * Khadijah Moncada APRN - CNP - 03/23/2020 2:30 PM EDT Anesthesia Focused Assessment STOP-BANG Sleep Apnea Questionnaire SNORE loudly (heard through closed doors)? Yes TIRED, fatigued, sleepy during daytime? No OBSERVED stopping breathing during sleep? No High blood PRESSURE being treated? No BMI over 35? No AGE over 50? Yes NECK circumference over 16 ? No GENDER (male)? No Total 2 High risk 5-8 Intermediate risk 3-4 Low risk 0-2 Obstructive Sleep Apnea: no If YES, machine used: no Type 1 DM: no T2DM: no Coronary Artery Disease: no Hypertension: no Active smoker: Quit in 2014 Drinks Alcohol: 4 glasses of wine per week Dentition: WDL Defib / AICD / Pacemaker: no Renal Failure/dialysis: no Patient was evaluated in PAT & anesthesia guidelines were applied. NPO guidelines, medication instructions and scheduled arrival time were reviewed with patient. Hx of anesthesia complications: no Family hx of anesthesia complications: no Anesthesia contacted: no Medical or cardiac clearance ordered: on file BRANDON PradoC 03/23/20 3:01 PM documented in this encounter* Angelina Gama RN - 04/05/2020 3:30 PM EST Dc instructions to pt-voices understanding/already had meds filled by pharmacy * Angelina Gama RN - 04/05/2020 2:35 PM EST OT and PT here at bedside working with patient/ at bedside * Juan Antonio Pabon DO - 04/05/2020 5:08 AM EST Orthopedic Progress Note Patient: Radha Farnsworth Date of : 1950 70 y.o. female Subjective: Patient seen and examined at bedside this morning. No complaints or concerns, pain well controlled No issue overnight per nursing. Patient tolerating PO and voiding appropriately Denies fever, ROB, CP, SOB, N/V, dysuria, numbness/tingling. -BM/+flatus PT: Patient ambulated 6ft with PT yesterday Objective: Vitals: 04/05/20 0441 BP: (!) 96/55 Pulse: 88 Resp: 16 Temp: 98.2 F (36.8 C) SpO2: Gen: Resting comfortably in bed, alert and oriented Cardiovascular: Regular rate, no dependent edema, distal pulses 2+ Respiratory: Chest symmetric, no accessory muscle use, normal respirations, no audible wheezes LLE: Optifoam dressing c/d/i. Compartments soft and compressible. 2+ DP pulse. TA/EHL/FHL/GS motor intact. Deep and Superficial Peroneal/Saphenous/Sural SILT. No results for input(s): WBC, HGB, HCT, PLT, INR, PTT, NA, K, BUN, CREATININE, GLUCOSE in the last 72 hours. Invalid input(s): PT Meds: ASA, Ancef See rec for complete list Impression/plan: 70 y.o. female s/p L JERAMY, POD#1 -Complete Post op Abx -F/u AM labs -WB status as tolerated to LLE -Maintain optifoam dressing. Do not remove. Please notify ortho if dressing saturates -Pain control PO/IV Medication. Attempt to Wean IV medications. -DVT ppx: ASA 81mg BID. Start today and continue for 6wks post op -Ice prn -Encourage Incentive Spirometry use -PT/OT to evaluate today. Work on mobilization and gait training -Dispo: Planning DC to home pending progress with PT and pain control -Please page ortho with any questions Juan Antonio Pabon DO Orthopedic Surgery Resident PGY-3 [place], [place] * Shazia Fonseca, OT - 04/04/2020 5:58 PM EST Occupational Therapy Occupational Therapy Initial Assessment Date: 04/04/2020 Patient Name: Radha Farnsworth : 1950 Date of Service: 04/04/2020 Discharge Recommendations: Further therapy recommended at discharge. Assessment Performance deficits / Impairments: Decreased functional mobility ;Decreased ADL status;Decreased endurance;Decreased high-level IADLs Treatment Diagnosis: L JERAMY Prognosis: Good Decision Making: Medium Complexity Patient Education: pt ed on POC, purpose of eval, importance of movement, safety during functional transfers/functional mobility. good return REQUIRES OT FOLLOW UP: Yes Activity Tolerance Activity Tolerance: Patient Tolerated treatment well Safety Devices Safety Devices in place: Yes Type of devices: Gait belt;Patient at risk for falls;Call light within reach;Left in bed Restraints Initially in place: No Patient Diagnosis(es): There were no encounter diagnoses. has a past medical history of Arthritis and Thyroid disease. has a past surgical history that includes Tonsillectomy (1957); Dilation and curettage of uterus (1971); Breast lumpectomy (Right, 1975); Lumbar disc surgery (1984 1996); Foot surgery (1994); Hysterectomy, vaginal; and Total hip arthroplasty (Left, 04/04/2020). Treatment Diagnosis: L JERAMY Restrictions Restrictions/Precautions Restrictions/Precautions: Fall Risk, Weight Bearing Required Braces or Orthoses?: No Lower Extremity Weight Bearing Restrictions Left Lower Extremity Weight Bearing: Weight Bearing As Tolerated Position Activity Restriction Other position/activity restrictions: L JERAMY-anterior approach, no straight leg raises Subjective General Patient assessed for rehabilitation services?: Yes Family / Caregiver Present: No Diagnosis: L JERAMY General Comment Comments: RN ok'd for therapy this afternoon. pt agreeable to participate in session and cooperative/pleasant throughout Patient Currently in Pain: Yes Pain Assessment Pain Assessment: Faces Pain Level: 2 Pandey-Foss Pain Rating: Hurts whole lot Pain Type: Surgical pain Pain Location: Incision Pain Orientation: Left Pain Descriptors: Aching;Discomfort Pain Frequency: Continuous Pain Onset: On-going Non-Pharmaceutical Pain Intervention(s): Emotional support(po pain rx) Response to Pain Intervention: Patient Satisfied Dermatomes: L3 Oxygen Therapy O2 Device: None (Room air) Social/Functional History Social/Functional History Lives With: Spouse Type of Home: House Home Layout: One level Home Access: Level entry Bathroom Shower/Tub: Tub/Shower unit Bathroom Toilet: Standard Bathroom Equipment: Toilet raiser, Grab bars around toilet, Grab bars in shower Home Equipment: 4 wheeled walker(pt reported no use of DME At baseline) ADL Assistance: Independent Homemaking Assistance: Independent Homemaking Responsibilities: Yes Meal Prep Responsibility: Primary Laundry Responsibility: Primary Cleaning Responsibility: Primary Ambulation Assistance: Independent Transfer Assistance: Independent Active Scientific Advisor: Yes Occupation: Retired Type of occupation: software team leader at [employer] Leisure & Hobbies: gardening Additional Comments: pt reported is also retired and able to assist PRN Objective Vision: Impaired Vision Exceptions: Wears glasses at all times Hearing: Within functional limits Orientation Overall Orientation Status: Within Functional Limits Balance Sitting Balance: Modified independent (~6 minutes on EOB) Standing Balance: Contact guard assistance(with RW) Standing Balance Time: ~3 minutes Activity: pt took 2 steps forward/backward and side steps toward HOB Comment: pt with no buckling or LOB ADL Feeding: Modified independent Grooming: Modified independent UE Bathing: Supervision LE Bathing: Moderate assistance UE Dressing: Supervision LE Dressing: Moderate assistance Toileting: Minimal assistance Tone RUE RUE Tone: Normotonic Tone LUE LUE Tone: Normotonic Coordination Movements Are Fluid And Coordinated: Yes Bed mobility Supine to Sit: Minimal assistance Sit to Supine: Minimal assistance Scooting: Contact guard assistance Comment: for L LE progression Transfers Sit to stand: Minimal assistance Stand to sit: Contact guard assistance Transfer Comments: with RW Cognition Overall Cognitive Status: WFL Sensation Overall Sensation Status: Impaired(pt reported a little numbness to B feet since surgery) LUE AROM (degrees) LUE AROM : WFL Left Hand AROM (degrees) Left Hand AROM: WFL RUE AROM (degrees) RUE AROM : WFL Right Hand AROM (degrees) Right Hand AROM: WFL LUE Strength Gross LUE Strength: WFL L Hand General: 4+/5 RUE Strength Gross RUE Strength: WFL R Hand General: 4+/5 Plan Plan Times per week: 5-7x/wk (joint) AM-PAC Score AM-PAC Inpatient Daily Activity Raw Score: 18 (04/04/201755) AM-PAC Inpatient ADL T-Scale Score : 38.66 (04/04/201755) ADL Inpatient CMS 0-100% Score: 46.65 (04/04/201755) ADL Inpatient CMS G-Code Modifier : CK (04/04/201755) Goals Short term goals Time Frame for Short term goals: pt will, by discharge Short term goal 1: complete LB ADLs with min A, set up and Ae, as needed Short term goal 2: complete UB ADLs and grooming tasks with mod I Short term goal 3: increase activity tolerance to 25+ minutes in order to participate in daily tasks Short term goal 4: dem SBA during functional transfers/functional mobility with LRD Short term goal 5: dem ~8 minutes dynamic standing tolerance with sBA in order to complete functional tasks Therapy Time Individual Concurrent Group Co-treatment Time In 1710 Time Out 1734 Minutes 24 Timed Code Treatment Minutes: 8 Minutes Shazia Fonseca OTR/L * Mariposa Bacon, PT - 04/04/2020 5:52 PM EST Physical Therapy Facility/Department: [facility] OR Initial Assessment NAME: Radha Farnsworth : 1950 S/p L JERAMY 04/04/20 Date of Service: 04/04/2020 Discharge Recommendations: Further therapy recommended at discharge. PT Equipment Recommendations Equipment Needed: Yes Mobility Devices: Walker Walker: Rolling Assessment Body structures, Functions, Activity limitations: Decreased functional mobility ;Decreased balance;Decreased endurance;Decreased strength Assessment: The pt performed bed mobility and functional transfers with Min A, ambulated 6ft with RW and CGA. Recommend continued physical therapy for additional gait training and to progress functional mobility. Prognosis: Good Decision Making: Medium Complexity PT Education: Goals;PT Role;Plan of Care;Functional Mobility Training Barriers to Learning: None REQUIRES PT FOLLOW UP: Yes Activity Tolerance Activity Tolerance: Patient Tolerated treatment well Patient Diagnosis(es): There were no encounter diagnoses. has a past medical history of Arthritis and Thyroid disease. has a past surgical history that includes Tonsillectomy (1957); Dilation and curettage of uterus (1971); Breast lumpectomy (Right, 1975); Lumbar disc surgery (1984 1996); Foot surgery (1994); Hysterectomy, vaginal; and Total hip arthroplasty (Left, 04/04/2020). Restrictions Restrictions/Precautions Restrictions/Precautions: Fall Risk, Weight Bearing Required Braces or Orthoses?: No Lower Extremity Weight Bearing Restrictions Left Lower Extremity Weight Bearing: Weight Bearing As Tolerated Position Activity Restriction Other position/activity restrictions: L JERAMY-anterior approach, no straight leg raises Vision/Hearing Vision: Impaired Vision Exceptions: Wears glasses at all times Hearing: Within functional limits Subjective General Patient assessed for rehabilitation services?: Yes Response To Previous Treatment: Not applicable Family / Caregiver Present: No Follows Commands: Within Functional Limits Subjective Subjective: RN and pt agreeable to PT. Pt supine in bed upon arrival, very pleasant and cooperativethroughout. Pain Screening Patient Currently in Pain: Yes Pain Assessment Pain Assessment: 0-10 Pain Level: 2 Pain Type: Acute pain;Surgical pain Pain Location: Incision Pain Orientation: Left Pain Descriptors: Aching;Discomfort Pain Frequency: Continuous Pain Onset: On-going Non-Pharmaceutical Pain Intervention(s): Ambulation/Increased Activity Response to Pain Intervention: Patient Satisfied Vital Signs Patient Currently in Pain: Yes Orientation Orientation Overall Orientation Status: Within Functional Limits Social/Functional History Social/Functional History Lives With: Spouse Type of Home: House Home Layout: One level Home Access: Level entry Bathroom Shower/Tub: Tub/Shower unit Bathroom Toilet: Standard Bathroom Equipment: Toilet raiser, Grab bars around toilet, Grab bars in shower Home Equipment: 4 wheeled walker(pt reported no use of DME At baseline) ADL Assistance: Independent Homemaking Assistance: Independent Homemaking Responsibilities: Yes Meal Prep Responsibility: Primary Laundry Responsibility: Primary Cleaning Responsibility: Primary Ambulation Assistance: Independent Transfer Assistance: Independent Active Scientific Advisor: Yes Occupation: Retired Type of occupation: software team leader at [employer] Leisure & Hobbies: gardening Additional Comments: pt reported is also retired and able to assist PRN Cognition Cognition Overall Cognitive Status: WFL Objective Joint Mobility Spine: WFL ROM RLE: WFL ROM LLE: AAROM WFL- within hip precautions ROM RUE: WFL ROM LUE: WFL Strength RLE Strength RLE: WFL Strength LLE Comment: not formally assessed due to JERAMY, at least 3/5 based on observed functional mobility Strength RUE Strength RUE: WFL Strength LUE Strength LUE: WFL Tone RLE RLE Tone: Normotonic Tone LLE LLE Tone: Normotonic Motor Control Gross Motor?: WFL Sensation Overall Sensation Status: Impaired(pt reported a little numbness to B feet since surgery) Bed mobility Supine to Sit: Minimal assistance Sit to Supine: Minimal assistance Scooting: Contact guard assistance Comment: Increased time required to complete, HOB elevated ~30 degrees Transfers Sit to Stand: Minimal Assistance Stand to sit: Contact guard assistance Comment: Transfers performed with RW, verbal cues for UE placement with good return Ambulation Ambulation?: Yes Ambulation 1 Surface: level tile Device: Rolling Walker Assistance: Contact guard assistance Quality of Gait: instructed pt in step-to gait with good return, no LOB or buckling Gait Deviations: Decreased step length;Decreased step height;Decreased arm swing;Slow Deborah Distance: 6ft Stairs/Curb Stairs?: No Balance Posture: Good Sitting - Static: Good Sitting - Dynamic: Good;- Standing - Static: Fair;+ Standing - Dynamic: Fair Comments: standing balance assessed with RW Total Hip Arthroplasty Exercise Program: Quad sets, glut sets, ankle pumps, heel slides, short arc quads, hip abduction slides. Reps: AROM 10x LLE Plan Plan Times per week: BID Current Treatment Recommendations: Strengthening, ROM, Balance Training, Functional Mobility Training, Transfer Training, Stair training, Gait Training, Endurance Training, Home Exercise Program, Safety Education & Training, Patient/Caregiver Education & Training Safety Devices Type of devices: Nurse notified, Call light within reach, Gait belt, Left in bed Restraints Initially in place: No AM-PAC Score AM-PAC Inpatient Mobility Raw Score : 17 (04/04/201747) AM-PAC Inpatient T-Scale Score : 42.13 (04/04/201747) Mobility Inpatient CMS 0-100% Score: 50.57 (04/04/201747) Mobility Inpatient CMS G-Code Modifier : CK (04/04/201747) Goals Short term goals Time Frame for Short term goals: 14 visits Short term goal 1: Perform bed mobility and functional transfers Mod I Short term goal 2: Ambulate 300ft with least restrictive AD and supervision Short term goal 3: Ascend/descend 4 steps with HR and SBA Short term goal 4: Perform HEP independently Short term goal 5: Demo Fair+ dynamic standing balance Therapy Time Individual Concurrent Group Co-treatment Time In 1710 Time Out 1734 Minutes 24 Timed Code Treatment Minutes: 8 Minutes Mariposa Bacon PT * Angelina Gama RN - 04/04/2020 4:15 PM EST Phase 1 criteria met-awaiting bed * Vicky Garcia RN - 04/04/2020 12:07 PM EST [id number] timeout for left fascia iliaca block. Patient was sedated with versed 2 mg iv et [id number] mcg iv. Block was completed per Dr Hood with marcaine 0.125% 30 ml. Vital signs were stable. Tolerated well. Resting comfortably with after block. documented in this encounter Assessments Diagnosis Pre-op testing Preoperative examination, unspecified Abnormal finding of blood chemistry, unspecified Arthritis of left hip Diagnosis Status post total hip replacement, left Post-operative pain Other acute postoperative pain Summary Purpose Family History No Family History Records FoundNo Family History Records FoundNo Family History Records FoundNo Family History Records FoundNo Family History Records FoundNo Family History Records Found Advance Directives TypeDate RecordedPatient RepresentativeExplanationACP-Advance Ulqhkzedh81/3/2020 10:35 AMCode StatusDate ActivatedDate InactivatedCommentsFull Code04/04/2020 9:14 PMTypeDate RecordedPatient RepresentativeExplanationACP-Advance Directive 04/04/2020 10:35 AMCode StatusDate ActivatedDate InactivatedCommentsFull Code 04/04/2020 9:14 PMCode StatusDate ActivatedDate InactivatedCommentsFull Code 04/04/2020 9:14 PM04/05/2020 5:57 PMCode StatusDate ActivatedDate Inactivated CommentsFull Code04/04/2020 9:14 PM04/05/2020 5:57 PM Advance Directive Response Recorded Date/ Time Advance Directives No January 1:46pm Chief Complaint and Reason for Visit Chief Complaint Admit Date Established Patient March 10, 2025 10 :31am Reason for Visit Admit Date Chronic rhinosinusitis March 10, 2025 10:31am Chronic right shoulder pain March 10, 2025 10:31am Class 1 obesity due to exces s calories with serious comorbidity and body ma March 10, 2025 10:31am Encounter for long-term (current) use of medications March 10, 2025 10:31am Generalized anxiety disorder March 10:31am Hypothyroidism, adult March 10, 2025 10:31am Major depressive disorder, recurrent, mo derate March 10, 2025 10:31am Prediabetes March 10, 2025 10 :31am Primary insomnia March 10, 2025 10 :31am Additional Source Comments INFORMATION SOURCE (unrecogn ized section and content) DATE CREATED AUTHOR 04/05/2020 [facility] DATE CREATED AUTHOR AUTHOR'S ORGANIZ ATION 03/03/2022 [facility] DATE CREATED AUTHOR AUTHOR'S ORGANIZ ATION 07/05/2022 [facility] DATE CREATED AUTHOR AUTHOR'S ORGANIZ ATION 08/14/2022 [place] DATE CREATED AUTHOR AUTHOR'S ORGANIZ ATION 09/07/2022 [facility] DATE CREATED AUTHOR AUTHOR'S ORGANIZ ATION 12/11/2024 [facility] EPIC Reason for Visit (unrecogniz ed section and content) StatusReasonSpecialtyDiagnoses / ProceduresReferred By ContactReferred To Contact Diagnoses Arthritis of left hip LEFT HIP ARTHRITIS Procedures VA TOTAL HIP ARTHROPLASTY HIP TOTAL ARTHROPLASTY ANTERIOR APPROACH (MEDACTA, MEDACTA TABLE, FASCIA ILLIACA, SPINAL VS. GENERAL, SUPINE, C-ARM) Crystal Mcadams, DO [address] [facility] [address] [place] [address] [facility] SpecialtyDiagnoses / ProceduresReferred By ContactReferred To Contact Diagnoses Acute medial meniscus tear of left knee, initial encounter Acute medial meniscus tear of left knee, initial encounter [S83.242A] Procedures VA ARTHROSCOPY KNEE DIAGNOSTIC W/WO SYNOVIAL BX SPX VA ARTHRS KNE SURG W/MENISCECTOMY MED/LAT W/SHVG LEFT KNEE ARTHROSCOPY PARTIAL MEDIAL MENISECTOMY Crystal Mcadams, DO [address] [facility] [address] [place] [address] [facility] [address] [place] [address] Referral IDStatusReasonStart DateExpiration DateVisits RequestedVisits [id number] TENDON ISSUESReasonOnset Date CommentsMed [id number]-up6m IBS issuesReasonComments Follow-upWellness Care Teams (unrecognized sec tion and content) Team Status: Inactive Member Role Status Dates Lauro Brito MD Attending Provider Active Team MemberRelationshipSpecialtyStart DateEnd Date Librado Solorzano MD [address] [place] [address] PCP - GeneralFamily Bndiqvgv93/7/20Team MemberRelationshipSpecialtyStart DateEnd Date Librado Solorzano MD [address] [place] [address] PCP - GeneralFamily Iqxyxyoa69/7/20Team MemberRelationshipSpecialtyStart DateEnd Date Librado Solorzano MD [address] [place] [address] PCP - GeneralFamily Htrmzkpb15/7/20Team MemberRelationshipSpecialtyStart DateEnd Date Librado Solorzano MD [address] [place] [address] PCP - [facility]09/02/23 Librado Solorzano MD [address] [place] [address] PCP - Medical [facility]02/01/1612Team MemberRelationshipSpecialtyStart Date End Date Librado Solorzano MD [address] [place] [address] [facility] [facility]09[facility]23 Librado Solorzano MD [address] [place] [address] PCP - Medical [facility]02/01/1612Team MemberRelationshipSpecialtyStart Date End Date Librado Solorzano MD [address] [place] [address] [facility] - [facility]09/02/23 Librado Solorzano MD [address] [place] [address] PCP - Medical [facility]02/01/1612Team MemberRelationshipSpecialtyStart Date End Date Librado Solorzano MD [address] [place] [address] PCP - [facility]09/02/23 Librado Solorzano MD [address] [place] [address] PCP - Medical [place] 02/01/1612Team MemberRelationshipSpecialtyStart Date End Date Librado Solorzano MD [address] [place] [address] PCP - [facility]09/02/23 Librado Solorzano MD [address] [place] [address] PCP - Medical [facility]02/01/1612Team MemberRelationshipSpecialtyStart Date End Date Librado Solorzano MD [address] [place] [address] [facility] - [facility]09/02/23 Librado Solorzano MD [address] [place] [phone] [facility] - Medical [facility]02/01/1612Team MemberRelationshipSpecialtyStart Date End Date Librado Solorzano MD [address] [place] [address] PCP - [facility]09/02/23 Librado Solorzano MD [address] [place] [address] [facility] - Medical [facility]02/01/1612 Team Status: Active Member Role Status Dates Librado Solorzano MD Primary Care Provider Active Team Status: Inactive Member Role Status Dates Librado Solorzano MD Primary Care Provider Active S tart: March 10, 2025 End: March 10, 2025[facility]asey Solorzano MDAttending ProviderActiveStart: March 10, 2025 End: March 10, 2025 Goals (unrecognized section and content) Goals may be documented in a n alternate sectionGoals may be documented in an alternate section Ordered Prescriptions (unrec ognized section and content) PrescriptionSigDispensedRefillsStart DateEnd Date oxyCODONE-acetaminophen (PERCOCET) 5-325 MG per tablet Indications:Post-op painTake 1 tablet by mouth every 6 hours as needed for Pain for up to 7 days. Intended supply: 7 days. Take lowest dose possible to manage pain Max Daily Amount: 4 tablets 28 tablet / Scheduled Active and Recently Administ ered Medications (unrecognized section and content) Medication Order// ceFAZolin (ANCEF) 2000 mg in 0.9% sodium chloride 50 mL IVPB (COMPLETED) 2,000 mg, IntraVENous, ONCE, 1 dose, On Fri08/13/22 at 1345, Antimicrobial Indications: Surgical Prophylaxis, Pre-op (day of surgery) * 1603 (Given - Provider: Maryana Winston APRN - [facility]) sodium chloride flush 0.9 % injection 5-40 mL 5-40 mL, IntraVENous, EVERY 12 HOURS SCHEDULED (2 times per day), First dose on Fri08/13/22 at 2100, Until Discontinued, For Line Patency: Peripheral IV = 5 mL; Midline or Central Line = 10 mL/lumen.If following IV push medication, administer flush at same rate as the IV push. Flush volume is determined by type of infusion therapy being given. For non-viscous solutions use: Peripheral IV = 5 mL Midline or Central Line = 10 mL/lumen For viscous solutions (i.e. blood components, parenteral nutrition, contrast media, or after obtaining blood sample) use: Peripheral IV = 10 mL Midline or CentralLine = 20 mL/lumen, Pre-op (day of surgery) * 2100 (Due) sodium chloride flush 0.9 % injection 5-40 mL 5-40 mL, IntraVENous, EVERY 12 HOURS SCHEDULED (2 times per day), First dose on Fri08/13/22 at 2100, Until Discontinued, For Line Patency: Peripheral IV = 5 mL; Midline or Central Line = 10 mL/lumen.If following IV push medication, administer flush at same rate as the IV push. Flush volume is determined by type of infusion therapy being given. For non-viscous solutions use: Peripheral IV = 5 mL Midline or Central Line = 10 mL/lumen For viscous solutions (i.e. blood components, parenteral nutrition, contrast media, or after obtaining blood sample) use: Peripheral IV = 10 mL Midline or CentralLine = 20 mL/lumen, PACU only * 2100 (Due) Medication Order/// lactated ringers IV soln infusion IntraVENous, at 125 mL/hr, CONTINUOUS, Starting on Fri08/13/22 at 1345, Pre-op (day of surgery) * 1332 (New Bag - Provider: Katherin Palma RN) Medication Order// 0.9 % sodium chloride infusion IntraVENous, at 5-250 mL/hr, PRN, if patient receiving piggyback infusions and maintenance fluids are not ordered OR KVO fluids to protect IV site / prevent frequent line interruptions/ long duration, Starting on Fri08/13/22 at 1328, For piggyback infusion, administer at same rate as piggyback for a total of 25 mL. Enter 25 mL into dose field and piggyback rate into rate field of order. If piggyback is infusing at a rate less than 100 mL/hr, enter 25 mL into dose field and 100 mL/hr into rate field of order. For KVO fluids, enter rate of 20 mL/hr or less into rate field of order., Pre-op (dayof surgery) 0.9 % sodium chloride infusion IntraVENous, at 5-250 mL/hr, PRN, if patient receiving piggyback infusions and maintenance fluids are not ordered OR KVO fluids to protect IV site / prevent frequent line interruptions/ long duration, Starting on Fri08/13/22 at 1704, For piggyback infusion, administer at same rate as piggyback for a total of 25 mL. Enter 25 mL into dose field and piggyback rate into rate field of order. If piggyback is infusing at a rate less than 100 mL/hr, enter 25 mL into dose field and 100 mL/hr into rate field of order. For KVO fluids, enter rate of 20 mL/hr or less into rate field of order., PACU only bupivacaine (MARCAINE) 0.25 % injection (CANCELED) PRN, Starting on Fri08/13/22 at 1654, Until Fri08/13/22 at 1703, Intra-op * 1654 (Given - Provider: Colin Márquez DO) fentaNYL (SUBLIMAZE) injection 25 mcg 25 mcg, IntraVENous, EVERY 5 MIN PRN, 4 doses, Starting on Fri08/13/22 at 1704, Until Discontinued,Pain Moderate (4-6), Phase I - Initial therapy for moderate pain., PACU only HYDROmorphone HCl PF (DILAUDID) injection 0.5 mg 0.5 mg, IntraVENous, EVERY 5 MIN PRN, 4 doses, Starting on Fri08/13/22 at 1704, Until Discontinued,Pain Severe (7-10), Phase I - Initial therapy for severe pain., PACU only * 175 (Given - Provider: Susu Daily RN) lidocaine PF 1 % injection 1 mL 1 mL, IntraDERmal, ONCE PRN, 1 dose, Starting on Fri08/13/22 at 1328, Until Fri08/14/22 at 1328, IVstart, Pre-op (day of surgery) ondansetron (ZOFRAN) injection 4 mg 4 mg, IntraVENous, ONCE PRN, 1 dose, Starting on Fri08/13/22 at 1704, Until Fri08/14/22 at 1704, Nausea, Initial antiemetic therapy., PACU only sodium chloride flush 0.9 % injection 5-40 mL 5-40 mL, IntraVENous, PRN, Starting on Fri08/13/22 at 1328, Until Discontinued, Line Care, After every IV line use, For Line Patency: Peripheral IV = 5 mL; Midline or Central Line = 10 mL/lumen. If following IV push medication, administer flush at same rate as the IV push. Flush volume is determined by type of infusion therapy being given. For non-viscous solutions use: Peripheral IV = 5 mL Midline or Central Line = 10 mL/lumen For viscous solutions (i.e. blood components, parenteral nutrition,contrast media, or after obtaining blood sample) use: Peripheral IV = 10 mL Midline or Central Line= 20 mL/lumen, Pre-op (day of surgery) sodium chloride flush 0.9 % injection 5-40 mL 5-40 mL, IntraVENous, PRN, Starting on Fri08/13/22 at 1704, Until Discontinued, Line Care, After every IV line use, For Line Patency: Peripheral IV = 5 mL; Midline or Central Line = 10 mL/lumen. If following IV push medication, administer flush at same rate as the IV push. Flush volume is determined by type of infusion therapy being given. For non-viscous solutions use: Peripheral IV = 5 mL Midline or Central Line = 10 mL/lumen For viscous solutions (i.e. blood components, parenteral nutrition,contrast media, or after obtaining blood sample) use: Peripheral IV = 10 mL Midline or Central Line= 20 mL/lumen, PACU only FOR RECORDS PERTAINING TO PATIENTS WHO ARE OR HAVE BEEN ENROLLED IN A CHEMICAL DEPENDENCY/SUBSTANCEABUSE PROGRAM, SOME INFORMATION MAY BE OMITTED. This clinical summary was aggregated from multiple sources. Caution should be exercised in using it in the provision of clinical care. This summary normalizes information from multiple sources, and as a consequence, information in this document may materially change the coding, format and clinical context of patient data. In addition, data may be omitted in some cases. CLINICAL DECISIONS SHOULD BE BASED ON THE PRIMARY CLINICAL RECORDS. [employer] provides no warranty or guarantee of the accuracy or completeness of information in this document.
--- NOTE | 2025-03-25 10:12 | CT_ITS ---
The [address] [address] Patient Name: RADHA FARNSWORTH MRN: [id number] date: 1950 Sex: F Assigned Patient Location: CT Current Patient Location: CT Accession/Order Number: [id number] Exam Date: 03/25/2025 10:16 Report Date: 03/25/2025 11:20 At the request of: SHELIA SOLORZANO MD Procedure: CT lung screening low-dose LOW-DOSE SCREENING CHEST CT WITHOUT CONTRAST COMPARISON: None CLINICAL DATA: Former smoker with 10 year pack year history of tobacco use Spiral axial unenhanced low-dose images were obtained through the chest. Images were reviewed using both narrow and wide window settings. This CT exam was performed using one or more following dose reduction techniques: Automated exposure control, adjustment of the mA and/or kV according to patient size, or use of iterative reconstruction technique. The heart is within normal limits for size. No pericardial effusion is noted. No aortic aneurysm is identified. There is mild plaque at the aortic arch, descending aorta and proximal great vessels. No enlarged lymph nodes are seen. There are mild degenerative changes at the spine. There is a Schmorl's node at superior endplate of T12. There is mild apical scarring. No additional consolidation, pleural effusion or pneumothorax is identified. There are multiple scattered noncalcified nodules bilaterally measuring up to 7 - 8 mm in size. Limited cuts through the upper abdomen show no contributory findings. CT/CT lung screening low-dose IMPRESSION: BILATERAL PULMONARY NODULES, DESCRIBED. Lung RADS category 3 - probably benign Six-month low-dose CT follow-up suggested. Impression dictated by: Viri Velasquez M.D. 03/25/2025 11:20 AM Dictation Location: [place] [address] Electronically authenticated by: [id number] Y Date: 03/25/2025 11:20
--- NOTE | 2025-03-25 10:21 | XR_ITS ---
The [address] [address] Patient Name: RADHA FARNSWORTH MRN: [id number] date: 1950 Sex: F Assigned Patient Location: CT Current Patient Location: CT Accession/Order Number: [id number] Exam Date: 03/25/2025 10:23 Report Date: 03/25/2025 11:24 At the request of: SHELIA SOLORZANO MD Procedure: XR shoulder RT min 2V RIGHT SHOULDER - 3 views CLINICAL HISTORY: Chronic right shoulder pain M25.511. G89.29 COMPARISON: None AP, Y and Grashey views were obtained. There is osteopenia. There is no acute fracture or dislocation. Mild degenerative change is seen at the acromioclavicular and inferior glenohumeral joints as well as the greater tuberosity. There are no significant soft tissue abnormalities. XR/XR shoulder RT min 2V IMPRESSION: OSTEOPENIA AND MILD DEGENERATIVE CHANGE. NO ACUTE BONY FINDINGS. Impression dictated by: Viri Velasquez M.D. 03/25/2025 11:24 AM Dictation Location: [place] [address] Electronically authenticated by: [id number] Y Date: 03/25/2025 11:24
[2025-03-25 11:00] LABS: Hematocrit 42.4 % (36.0-48.0); Hemoglobin 14.0 g/dL (12.0-16.0); Immature Granulocytes Abs Auto 0.03 10^3/uL (0.00-0.03); Immature Granulocytes Pct Auto 0.5 % (0.0-0.5); Lymphocytes Absolute Auto 1.8 10^3/uL (1.2-3.8); Mean Corpuscular HGB Conc 33.0 g/dL (29.9-35.2); Mean Corpuscular Hemoglobin 30.6 pg (26.7-34.0); Mean Corpuscular Volume 92.6 fL (81.0-99.0); Platelet Count 217 10^3/uL (150-450); Red Blood Count 4.58 10^6/uL (4.20-5.40); White Blood Count 5.5 10^3/uL (4.0-11.0)
[2025-03-25 11:33] LABS: Alanine Aminotransferase 46 U/L (14-59); Albumin Globulin Ratio 1.2; Albumin Level 4.0 g/dL (3.4-5.0); Alkaline Phosphatase 94 U/L (46-116); Anion Gap 14.8; Aspartate Amino Transferase 20 U/L (15-37); Blood Urea Nitrogen 15.0 mg/dL (7.0-18.0); Calcium 9.2 mg/dL (8.5-10.1); Carbon Dioxide 28.7 mmol/L (21.0-32.0); Chloride 104 mmol/L (98-107); Cholesterol 212 mg/dL (<=200); Estimated GFR (African America >60 (>=60 mL/min/1.73m^2); Estimated GFR (Non-African Ame >60 (>=60 mL/min/1.73m^2); Globulin 3.3 g/dL; Glucose 101 mg/dL (74-106); HDL Cholesterol 51 mg/dL (40-60); Potassium 4.5 mmol/L (3.5-5.1); Sodium 143 mmol/L (136-145); Thyroid Stimulating Hormone 8.065 uIU/mL (0.358-3.740); Total Protein 7.3 g/dL (6.4-8.2); Triglycerides 143 mg/dL (<=150); VLDL CHOLESTEROL 28.6 mg/dL
== END 2025-03-25 10:07 | disposition home or self-care (01) ==
LOC: CT 10:06
PROVIDERS: PCP Family Medicine; Visit Provider Family Medicine
DX: M25.511 Pain in right shoulder (principal); Z87.891 Personal history of nicotine dependence; G89.29 Other chronic pain; E66.811 Obesity, class 1; Z68.30 Body mass index [BMI] 30.0-30.9, adult; E66.09 Other obesity due to excess calories; Z79.899 Other long term (current) drug therapy; R73.03 Prediabetes; E03.9 Hypothyroidism, unspecified; R91.8 Other nonspecific abnormal finding of lung field; M85.88 Other specified disorders of bone density and structure, other site
CPT/HCPCS: 36415; 71271; 73030; 80053; 80061; 83036; 84439; 84443; 85025